=== PATIENT | female | born 1955 | race Caucasian/White ===

== ENCOUNTER → 2019-12-06 12:52 | Outpatient (CLI) | payer OTHER, SELFPAY ==
--- NOTE | ~2019-12-06 | XR_ITS ---
EXAMINATION: XR lumbar spine 2-3V DATE: 12/06/2019 13:37 INDICATION: Right-sided low back pain TECHNIQUE: Anteroposterior and lateral views of the lumbar spine, and cone-down lateral view of the l umbosacral junction were obtained. COMPARISON: None. FINDINGS: There is no fracture, dislocation, or subluxation. The vertebral body heights are normal. T here is severe loss of intervertebral disc space height at L2-3, L4-5, and L5-S1. Degenerative osteop hytes project from the anterior endplates of multiple vertebral bodies. Moderate to severe facet oste oarthritis is noted in the lower lumbar spine. There is calcified atherosclerosis. The bowel gas camila mandie is normal. IMPRESSION: 1. Moderate lumbar spondylosis without acute findings. Reviewed, dictated and finalized at location A.
--- NOTE | ~2019-12-06 | XR_ITS ---
EXAMINATION: XR chest 2V EXAM DATE: 12/06/2019 13:36 INDICATION: Dyspnea on exertion. TECHNIQUE: Frontal and lateral projections of the chest obtained and reviewed. Comparison is made to prior examination from 09/13/2011. FINDINGS: The lungs are clear. There are no pleural effusions. The cardiomediastinal silhouette is within normal limits. There is no pneumothorax suspected. Moderate-sized bridging endplate osteophy hugh, diffuse idiopathic skeletal hyperostosis. Mild to moderate chronic hyperinflation. IMPRESSION: No acute cardiopulmonary findings. Reviewed, dictated and finalized at location B.
== END ==
PROVIDERS: PCP Family Medicine Adolescent Medicine; Visit Provider Family Medicine Adolescent Medicine
DX: R06.00 Dyspnea, unspecified (principal); M47.816 Spondylosis without myelopathy or radiculopathy, lumbar region
CPT/HCPCS: 71046; 72100

== ENCOUNTER 2020-02-29 06:50 | Outpatient (NON) | payer OTHER, SELFPAY ==
[2020-02-29 23:03] LABS: SARS-CoV-2 RNA PCR Negative
== END 2020-02-29 06:51 ==
PROVIDERS: PCP Family Medicine Adolescent Medicine; Visit Provider Family Medicine Adolescent Medicine
DX: R05 Cough (principal); R06.02 Shortness of breath; Z20.828 Contact with and (suspected) exposure to other viral communicable diseases
CPT/HCPCS: 87635; C9803; U0003

== ENCOUNTER → 2020-03-01 14:18 | Outpatient (CLI) | payer OTHER, SELFPAY ==
--- NOTE | ~2020-03-01 | XR_ITS ---
XR chest 2V DATE: 03/01/2020 14:30 INDICATION: Cough, dyspnea TECHNIQUE: 2 views COMPARISON: 12/06/2019 PA and lateral chest FINDINGS: Cardiomegaly. There is mild pulmonary vascular congestion and redistribution compared to , suggesting mild congestive heart failure. No pleural effusion or pneumothorax is evident. The lungs are mildly hyperinflated; there is mild infiltrate or atelectasis in the mid and lower lung zones. . IMPRESSION: Cardiomegaly, mild pulmonary vascular congestion, suggesting mild congestive heart failur e Mild infiltrate or atelectasis in the mid and lower lung zones Reviewed, dictated and finalized at location A. 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
== END ==
PROVIDERS: PCP Family Medicine Adolescent Medicine; Visit Provider Family Medicine Adolescent Medicine
DX: R05 Cough (principal); R06.00 Dyspnea, unspecified; I51.7 Cardiomegaly; R91.8 Other nonspecific abnormal finding of lung field
CPT/HCPCS: 71046

== ENCOUNTER → 2020-05-02 00:54 | Outpatient (CLI) | payer MEDICARE, SELFPAY ==
[2020-05-02 19:08] LABS: SARS-CoV-2 RNA PCR Negative
== END ==
PROVIDERS: PCP Family Medicine Adolescent Medicine; Visit Provider Specialist
DX: Z01.812 Encounter for preprocedural laboratory examination (principal); Z20.822 Contact with and (suspected) exposure to COVID-19
CPT/HCPCS: C9803; U0003; U0005

== ENCOUNTER 2020-05-05 17:11 | Inpatient (IN) | payer MEDICARE, SELFPAY ==
[2020-05-04 16:07] VITALS: BMI 46.0
[2020-05-05] VITALS (16 sets, daily range): BP systolic 94–159; BP diastolic 57–80; PULSE 72–88; RESP 16–20; TEMP 35.8–36.4; O2SAT 92–98; BMI 46.1
--- NOTE | 2020-05-05 07:43 | SUR.PREOP ---
Patient arrives via wheelchair accompanied to [facility] room 5. PIV established, VSS, peripheral pulses assessed, labs obtained and sent. Consent obtained. Patient updated on plan of care and verbalizes understanding. Will continue to monitor.
[2020-05-05 07:46] LABS: Basophils Absolute Auto 0.1 K/mm3 (0.0-0.1); Basophils Percent Auto 0.9 % (0.2-1.2); Eosinophils Absolute Auto 0.2 K/mm3 (0-0.3); Eosinophils Percent Auto 3.6 % (0-4.4); Hematocrit 42.7 % (37.0-47.0); Hemoglobin 13.5 g/dL (12.0-15.0); Immature Granulocyte Absolute 0.03 K/mm3 (0.00-0.031); Immature Granulocyte Percent A 0.5 % (0-0.5); Lymphocytes Absolute Auto 1.18 K/mm3 (0.9-3.2); Lymphocytes Percent Auto 21.5 % (18.3-44.2); Mean Corpuscular HGB Conc 31.6 g/dl (32-36); Mean Corpuscular Hemoglobin 26.9 pg (26-34); Mean Corpuscular Volume 85.1 fl (80-100); Mean Platelet Volume 10.2 fl (7.4-10.4); Monocytes Absolute Auto 0.6 K/mm3 (0.1-0.6); Monocytes Percent Auto 11.1 % (2.6-8.5); Neutrophils Absolute Auto 3.4 K/mm3 (1.3-6.7); Neutrophils Percent Auto 62.4 % (45.5-73.1); Platelet Count Result 176 k/mm3 (150-375); Red Blood Count 5.02 M/mm3 (4.2-5.4); Red Cell Distribution Width 13.1 % (11.5-14.5); White Blood Count 5.5 K/mm3 (4.5-10.0)
[2020-05-05 07:55] LABS: INR 0.9; Prothrombin Time 13.2 Seconds (11.1-14.7)
[2020-05-05 07:57] LABS: Anion Gap 6 mmol/L (8-16); Blood Urea Nitrogen 21 mg/dL (7-17); Calcium 9.6 mg/dL (8.4-10.2); Carbon Dioxide 29 mmol/L (22-30); Chloride 104 mmol/L (98-107); Estimated CRCL calculation 96 ml/min; Estimated Glomerular Filt Rate > 60; Glucose 113 mg/dL (65-105); Potassium 3.9 mmol/L (3.4-5.0); Sodium 139 mmol/L (137-145)
--- NOTE | 2020-05-05 09:21 | WPDMODSED ---
Moderate Sedation Note-Pt Data Patient Data Diagnosis: Exertional dyspnea Recently diagnosed left ventricular systolic dysfunction Abnormal nuclear stress test Morbid obesity Present Complaint: This is a 65-year-old woman referred for evaluation of dyspnea. A nuclear stress test done as an outpatient apparently showed evidence of significant left ventricular systolic dysfunction as well as perfusion abnormalities suggestive of multivessel coronary artery disease. Procedure to be performed/Plan: Left heart catheterization Allergies Allergy/AdvReac Type Severity Reaction Status Date / Time No Known Allergies Allergy Verified 05/05/20 07:33 Home Medications Medication Instructions Recorded Confirmed Type aspirin [Aspir-81] 81 mg PO DAILY 05/04/20 05/05/20 History atorvastatin 20 mg PO DAILY 05/04/20 05/05/20 History bupropion HCl 150 mg PO QAM 05/04/20 05/05/20 History bupropion HCl 300 mg PO QAM 05/04/20 05/05/20 History carvedilol 3.125 mg PO BID 05/04/20 05/05/20 History diclofen ybb-kybija-i-parker-ment ea 05/04/20 History duloxetine 60 mg PO DAILY 05/04/20 05/05/20 History furosemide [Lasix] 40 mg PO DAILY 05/04/20 05/05/20 History hydrochlorothiazide 25 mg PO DAILY 05/04/20 05/05/20 History indomethacin 05/04/20 History losartan 25 mg PO DAILY 05/04/20 05/05/20 History tramadol 100 mg PO Q6H 05/04/20 05/05/20 History Current Medications: Active Medications Sodium Chloride (Normal Saline Iv) 500 mls @ 100 mls/hr IV CONT .Q5H [place] Sedation/Anesthesia: No previous sedation/anesthesia problems (including family history). [facility] Social History Social History Smoking packs per day: 1 Smoking cigarettes per day: 20.0 Years smoked: 50 Smoking pack-years: 50.00 Smoking status: Former smoker Tobacco type: cigarettes Smoking end date: 03/01/20 Alcohol intake: unknown Substance use type: does not use Spiritual care concerns: No Mod Sed Physical Exam Physical Exam Pre Procedural Exam: Normal: Throat, Airway, Lungs, Heart Rate, Heart Rhythm, Neuro Exam and Extremities and Variation: Appearance (Morbidly obese female no apparent distress) and Heart Size (PMI not palpable) Hours since solid foods: 12 Hours since liquid intake: 12 Internal Medicine - PN: Obj Da Vital Signs Vital Signs: Vital Signs - 24 hr 05/05/20 07:35 Temperature 35.8 C L Pulse Rate 88 Respiratory Rate 20 Blood Pressure 159/80 H Pulse Oximetry 96 Meds/Results Medications: Active Medications Generic Name Dose Route Start Last Admin Trade Name Ponchoq PRN Reason Stop Dose Admin Sodium Chloride 500 mls @ 100 mls/hr 05/04/20 18:35 Normal Saline Iv IV CONT .Q5H [place] Labs CBC & Chem 7: 05/05/20 07:25 05/05/20 07:25 Labs: Laboratory Results - last 24 hr 05/05/20 05/05/20 05/05/20 07:25 07:25 07:25 WBC 5.5 RBC 5.02 Hgb 13.5 Hct 42.7 MCV 85.1 MCH 26.9 MCHC 31.6 L RDW 13.1 Plt Count 176 MPV 10.2 Immature Gran % (Auto) 0.5 Neut % (Auto) 62.4 Lymph % (Auto) 21.5 [place] % (Auto) 11.1 H Eos % (Auto) 3.6 Baso % (Auto) 0.9 Lymph # (Auto) 1.18 [place] # (Auto) 0.6 Eos # (Auto) 0.2 Baso # (Auto) 0.1 Abs Immat Gran (auto) 0.03 Absolute Neuts (auto) 3.4 Absolute Nucleated RBC 0.0 Nucleated RBC % 0.0 PT 13.2 INR 0.9 Sodium 139 Potassium 3.9 Chloride 104 Carbon Dioxide 29 Anion Gap 6 L BUN 21 H Creatinine 0.80 Estim Creat Clear Calc 96 Estimated GFR > 60 Glucose 113 H Calcium 9.6 ASA Classification/Sedation ASA Classification/Sedation Risks: Risks, benefits and alternatives explained and patient/family accepted plan for sedation. Patient re-evaluated immediately prior to sedation.
--- NOTE | 2020-05-05 10:08 | P.PCNCC_ITS ---
Cardiac Cath Procedure Note Date of procedure:: 05/05/20 Performing physician:: Fabian Fraser MD Indication:: Exertional dyspnea abnormal nuclear stress test left ventricular systolic dysfunction Brief clinical history:: this is a 65-year-old woman who is morbidly obese no previous known history of cardiac disease who was seen because of relatively recent onset of severe exertional dyspnea. She also has occasional exertional chest pain as well. Nuclear stress testing was done demonstrating evidence of poor LV function and findings compatible with multivessel coronary disease. Procedure Procedure performed:: Left ventriculography coronary angiography Sedation/Medication given:: fentanyl 50 mg Versed 2 mg Case start time 9:44 a.m. case end time 10:03 a.m. sedation provided by Cammie Jonas RN, trained observer Access site:: right femoral artery Estimated blood loss:: 15-20 cc Procedure note:: patient was brought to the cardiac catheterization lab in the postabsorptive state the right femoral triangle was prepared and draped in the usual fashion. Anesthesia was provided with 1% lidocaine infiltrated locally. Using the modified Seldinger technique the right femoral artery was punctured and a 5 Salvadorean vascular sheath was placed. After this a 5 Salvadorean angled pigtail catheter was used to document left-sided hemodynamics and to injected LV g in the [place] projection. After this the pigtail catheter was withdrawn. The left coronary was injected using a 5 Salvadorean FL4 catheter. The right coronary was injected using a standard 5 Salvadorean JR4 catheter. The cine angiograms were then reviewed and the case was terminated. Patient was taken to the holding area for manual sheath removal. There were no procedural complications the procedure was well tolerated and she left the supervisor laboratory with no evidence of groin hematoma. Findings:: hemodynamics: Central aortic pressure is 102 over 45 left ventricle 102 over to end-diastolic 21. No apparent gradient on pullback across the aortic valve. Left ventricle: The LV is severely dilated. There is severe global systolic hypocontractility in all segments. The global ejection fraction visually estimated to be about 20%. Left main coronary artery is patent the left anterior descending is a Medium caliber artery artery extending down to around the apex there is a large diagonal branch proximally that is nicely patent the LAD after the diagonal has a discrete 95% stenosis. The circumflex is a moderate to large caliber vessel giving rise to the marginal branch is the circumflex is free of significant disease. The right coronary artery is large in caliber and was dominant to the posteri or circulation. The right coronary artery is 100% chronically occluded in the proximal segment. There is obvious a well-developed collateral flow left to right filling the posterior descending and large posterolateral branches. Conclusion:: 1. severe 2 vessel coronary artery disease with high-grade stenosis of the mid LAD and chronic total occlusion of the right coronary artery with well-developed hhyd-mc-abnlu collateral filling. 2. Severe left ventricular systolic dysfunction with LV dilatation and low ejection fraction as detailed above Fabian Fraser MD [facility]
[2020-05-05] MEDS: SODIUM CHLORIDE 0.9% IV 1,000 ML 125 ML IV CONT (12:00)
--- NOTE | 2020-05-05 18:15 | PC.NURSE ---
PT. TRANSFER HAS BEEN CANCELLED TO [facility] PER DR. BERMAN. PT. IS TO DISCHARGE HOME. WILL NOT BE ADMITTED TO IMU 205. TO REMAIN POST PROCEDURE STATUS IN [facility] 5 S/P [facility]. PT. IS AWARE.
--- NOTE | 2020-05-05 18:55 | SUR.PHASEII ---
REVIEWED ALL DISCHARGE INSTRUCTIONS /W PT. QUESTIONS ANSWERED. VOICED UNDERSTANDING OF ALL. DISCHARGED HOME, OUT VIA WC TO DAUGHTER'S WAITING CAR W/ ALL PERSONAL BELONGINGS, DISCHARGE PACKET, PROCEDURE DISK TO TAKE TO UPCOMING CARDIAC SURGERY APPOINTMENT. DENIES CP OR SOB. VOICES NO C/O. NO DISTRESS NOTED. R. GROIN SITE AT DISCHARGE SOFT, NONTENDER. NO BLEEDING OR HEMATOMA NOTED. STAT SEAL AND TEGADERM DRESSING C/D/I TO SITE. R. PEDAL PULSE PALP STRONG. VSS.
--- NOTE | 2020-05-29 16:07 | PM.DS ---
DS: Admitting Diagnosis Admitting Diagnosis Admitting Diagnosis: Dilated cardiomyopathy DS: Discharge Diagnosis Discharge Diagnosis (1) Ischemic cardiomyopathy: Code(s): I25.5 - Ischemic cardiomyopathy Status: Acute DS: Summary Hospital Course Reason for hospitalization: Elective left heart catheterization Hospital Course: This is a 65-year-old patient admitted to the hospital for elective left heart catheterization because of recently diagnosed dilated cardiomyopathy with congestive heart failure. The patient underwent left heart catheterization on the morning of admission in uncomplicated fashion. She was found to have severe 2 vessel coronary artery disease with stent to chronic total occlusion of the proximal right coronary artery as well as high-grade stenosis of the mid LAD of 95%. Patient had left ventricular enlargement with very low ejection fraction of about 10%. Given the severe 2 vessel coronary disease recommendation was for surgery consultation as an outpatient with the eye toward surgical revascularization in then medical treatment for left ventricular systolic dysfunction and likelihood a life vest and possibly a defibrillator depending on recovery ejection fraction. Patient was stable following angiography was discharged home. She was instructed not to lift more than 20 [address] to [address] a car until further notice and not to perform any vigorous manual labor. She is to restrict herself to sedentary activity until being seen in the office. Status at Discharge Functional status at discharge: independent ambulation Time Spent with Patient Time attestation: Total time spent providing and/or coordinating discharge services: Time spent: Greater than 30 minutes Exam Const: General: comfortable and no acute distress Other: Morbidly obese white male pleasant comfortable cooperative in no distress of any kind HENMT: Mouth: Yes moist mucous membranes Eyes: Sclera: sclerae normal Pupils: Equal, round and reactive pupils present Neck: Neck: supple Thyroid: thyroid normal Other: Difficult to assess JVD given her body habitus Resp: Effort & Inspection: normal respiratory effort Auscultation: clear to auscultation bilaterally and diminished lung sounds Cardio: Rate: regular rate Rhythm: regular rhythm Other: PMI not palpable no murmur no gallop GI: GI Palp: Yes Soft to palpation Auscultation: normal bowel sounds Skin: General skin exam: normal color Neuro: Other: Normal cognition Extrem: General: normal to inspection Other: Obese but otherwise negative Discharge Plan Discharge Attending physician on discharge: Fabian Fraser Discharging Clinician: Fabian Fraser Patient Disposition: Home, Self-Care Activity: as tolerated Diet: heart healthy Wound Care Instructions: other - see discharge instructions Discharge Instructions: YOU SHOULD HEAR FROM [facility] OFFICE ON FRIDAY, MAY 08, 2020 REGARDING A FOLLOW UP APPOINTMENT WITH A CARDIOVASCULAR SURGEON FOR POSSIBLE CORONARY ARTERY BYPASS SURGERY. IF YOU DO NOT HEAR FROM THEM BY AFTERNOON, CALL THE OFFICE AT [phone] TO INQUIRE. TAKE PROCEDURE DISK WITH YOU TO SURGERY APPOINTMENT TO GIVE TO DOCTOR. ACTIVITY POST CARDIAC CATH: *NO DRIVING FOR 24 HOURS. *NO LIFTING, PUSHING, OR PULLING MORE THAN 10 POUNDS FOR 1 WEEK. *NO STRENUOUS EXERCISE OR ACTIVITY (INCLUDING SEX) FOR 1 WEEK. *MAY SHOWER BUT NO TUB BATH OR SWIMMING POOL FOR 1 WEEK. *STAY HYDRATED. WOUND CARE POST CARDIAC CATH: *MAY REMOVE DRESSING TOMORROW AND PLACE BAND AID OVER SITE. REMOVE BANDAID ON FRIDAY, AND LEAVE SITE OPEN TO AIR. OBSERVE FOR REDNESS, SWELLING, DRAINAGE OR BLEEDING. MAY SHOWER TOMORROW. GENTLE WASH WITH SOAP AND RINSE WITH WATER. PAT DRY. NO RUBBING OR SCRUBBING OF SITE. NO POWDERS, CREAMS, OR OINTMENTS TO SITE. Patient Instructions: Heart Healthy Diet (DC), Moderate Sedation (DC), CABG (Coronary Artery Bypass Graft) (
== END 2020-05-05 18:55 | disposition home or self-care (01) | DRG 287 ==
LOC: ANHIMU 17:24 → ANHCPC 18:11
PROVIDERS: Admitting Provider Specialist; PCP Family Medicine Adolescent Medicine; Visit Provider Specialist
PROC: 4A023N7 Measurement of Cardiac Sampling and Pressure, Left Heart, Percutaneous Approach (ICD-10-PCS; CPT 93452; principal; 2020-05-05 08:30)
DX: I25.10 Atherosclerotic heart disease of native coronary artery without angina pectoris (principal); Z68.42 Body mass index [BMI] 45.0-49.9, adult; I50.20 Unspecified systolic (congestive) heart failure; I25.82 Chronic total occlusion of coronary artery; I25.5 Ischemic cardiomyopathy; E66.01 Morbid (severe) obesity due to excess calories; Z87.891 Personal history of nicotine dependence
CPT/HCPCS: 36415; 80048; 85025; 85610; 93458; C1887; C1894; J0461; J1644; J2250; J3010; J7030; J7040

== ENCOUNTER 2020-10-11 15:49 | Emergency (ER) | payer MEDICARE, SELFPAY ==
[2020-10-11 16:03] VITALS: BP 141/85; PULSE 110; RESP 16; TEMP 36.6; O2SAT 98
--- NOTE | 2020-10-11 16:10 | ED.WOUNDLAC ---
HPI - Wound/Laceration General Chief Complaint: Wound/Laceration Stated Complaint: dog bite Time Seen by Provider: 10/11/20 16:11 Source: patient and RN notes reviewed Mode of arrival: ambulatory Limitations: no limitations History of Present Illness HPI narrative: 65-year-old female presents concern for dog bite to the back of her left foot/ankle area. Reports the dog bite happened yesterday at 2 AM. Reports pain with weightbearing, pain with flexion of the foot. Reports two puncture wounds which she cleaned with soap and water and applied antibiotic ointment to. She denies fever, body aches. Denies drainage from the area. Extremity Location: Left: foot Related Data Home Medications Medication Instructions Recorded Confirmed aspirin 81 mg PO DAILY 05/04/20 05/05/20 atorvastatin 20 mg PO DAILY 05/04/20 05/05/20 bupropion HCl 150 mg PO QAM 05/04/20 05/05/20 bupropion HCl 300 mg PO QAM 05/04/20 05/05/20 carvedilol 3.125 mg PO BID 05/04/20 05/05/20 diclofen teo-gmuhkt-j-parker-ment ea 05/04/20 duloxetine 60 mg PO DAILY 05/04/20 05/05/20 furosemide [Lasix] 40 mg PO DAILY 05/04/20 05/05/20 losartan 25 mg PO DAILY 05/04/20 05/05/20 lisinopril 10/11/20 pantoprazole PO 10/11/20 potassium chloride meq PO 10/11/20 spironolactone 10/11/20 Allergies Allergy/AdvReac Type Severity Reaction Status Date / Time No Known Allergies Allergy Verified 05/05/20 07:33 Review of Systems Review of Systems: CONSTITUTIONAL: Denies malaise, chills, sweats, or fever. SKIN: Reports puncture wounds to the posterior left ankle MUSCULOSKELETAL: Reports left foot and ankle pain denies myalgia. NEUROLOGIC: Denies numbness, weakness All systems reviewed & are unremarkable except as noted in HPI and below PMFSH Social History Social History Smoking packs per day: 1 Smoking cigarettes per day: 20.0 Years smoked: 50 Smoking pack-years: 50.00 Smoking status: Former smoker Tobacco type: cigarettes Smoking end date: 03/01/20 Alcohol intake: unknown Substance use type: does not use Spiritual care concerns: No Comments At time of signature, agree with nursing past medical, surgical, social and family history. There is no relevant family history pertinent to the presenting complaint Exam Narrative: GENERAL: Well-appearing, well-nourished, and in no acute distress. HEAD: Normocephalic, atraumatic. EYES: PERRLA, conjunctivae clear, and EOMI. ENT: Mucous membranes moist. Oropharynx without edema, erythema or lesions. NECK: Supple. No lymphadenopathy CHEST: Clear to auscultation. No respiratory distress. HEART: Regular rate and rhythm. SKIN: Warm, dry. Two puncture small wounds noted to the posterior left ankle, Achilles area surrounded by erythema, with 4 cm of streaking on bilateral sides of the ankle NEURO: Alert and oriented x3. PSYCH: Normal mood and affect Course Course Emergency Course: Discussed with patient that if symptoms of pain with weightbearing or range of motion remain after 3 days on her antibiotic she needs to follow-up with her primary care doctor for further evaluation of her foot. Patient is aware of diagnosis, understands and agrees to treatment plan. Anticipatory guidance given. Patient agrees to follow-up as directed and is aware of reasons to seek care at the emergency department. Portions of this record may have been created with voice recognition software Vital Signs Vital signs: Vital Signs Temperature 97.9 F 10/11/20 16:03 Pulse Rate 110 H 10/11/20 16:03 Respiratory Rate 16 10/11/20 16:03 Blood Pressure 141/85 H 10/11/20 16:03 Pulse Oximetry 98 10/11/20 16:03 Temperature 97.9 F 10/11/20 16:03 Pulse Rate 110 H 10/11/20 16:03 Respiratory Rate 16 10/11/20 16:03 Blood Pressure 141/85 H 10/11/20 16:03 Pulse Oximetry 98 10/11/20 16:03 Reviewed. MDM - Wound/Laceration MDM Narrative Medical decision making narrative: Exam findings show no acute concerns or c
== END 2020-10-11 16:23 | disposition home or self-care (01) ==
PROVIDERS: Emergency Provider Nurse Practitioner; PCP Family Medicine Adolescent Medicine
DX: L08.9 Local infection of the skin and subcutaneous tissue, unspecified (principal); S91.032A Puncture wound without foreign body, left ankle, initial encounter; W54.0XXA Bitten by dog, initial encounter; Z87.891 Personal history of nicotine dependence; Z95.1 Presence of aortocoronary bypass graft; I25.10 Atherosclerotic heart disease of native coronary artery without angina pectoris; E78.00 Pure hypercholesterolemia, unspecified; I10 Essential (primary) hypertension; K21.9 Gastro-esophageal reflux disease without esophagitis; M19.90 Unspecified osteoarthritis, unspecified site; Z96.652 Presence of left artificial knee joint
CPT/HCPCS: 99213; G0463

== ENCOUNTER → 2020-10-20 10:38 | Outpatient (CLI) | payer MEDICARE, SELFPAY ==
--- NOTE | ~2020-10-20 | US_ITS ---
EXAMINATION: US thyroid DATE: 10/20/2020 11:04 INDICATION: Left thyroid nodule. TECHNIQUE: Multiple ultrasound images of the thyroid were obtained. COMPARISON: None. FINDINGS: The right thyroid lobe measures 4.4 x 3.0 x 2.1 cm. The left thyroid lobe measures 5.1 x 2.6 x 2.3 c m. The thyroid demonstrates diffusely heterogeneous hypoechogenicity. Vascularity is normal. In the left thyroid lobe, there is a 1.6 cm solid, isoechoic, sjtkke-hqvf-dsyt nodule with ill-defined cal n with peripheral calcifications (TI-RADS TR5). IMPRESSION: 1. Left thyroid nodule. Ultrasound-guided fine-needle aspiration is recommended. 2. Heterogeneous thyroid, likely chronic lymphocytic (Fredrick) thyroiditis. Reviewed, dictated and finalized at location A. IMPRESSION: 1. Left thyroid nodule. Ultrasound-guided fine-needle aspiration is recommended . 2. Heterogeneous thyroid, likely chronic lymphocytic (Fredrick) thyroiditis.
== END ==
PROVIDERS: PCP Family Medicine Adolescent Medicine; Visit Provider Family Medicine Adolescent Medicine
DX: E04.9 Nontoxic goiter, unspecified (principal)
CPT/HCPCS: 76536

== ENCOUNTER 2020-10-27 08:43 | Outpatient (CLI) | payer MEDICARE, SELFPAY ==
--- NOTE | ~2020-10-27 | US_ITS ---
EXAMINATION: US FNA w image guidance DATE: 10/27/2020 09:57 INDICATION: Left thyroid nodule. TECHNIQUE: The procedure and its benefits and risks were discussed with the patient. Risks specifically discusse d included bleeding. The patient verbalized understanding of the risks and agreed to proceed. The nec k was prepped and draped in the usual sterile manner. 1% lidocaine was used for local anesthesia. 5 passes were made with a 25G needle into the lesion under ultrasound guidance. There were no immedia te complications. The patient understood to call the ordering physician for results after a week and a half and verbalized that understanding. FINDINGS: Grayscale ultrasound images demonstrate needles advanced into a 1.6 cm left thyroid nodule for biopsy . IMPRESSION: 1. Ultrasound-guided fine needle aspiration of a left thyroid nodule. Reviewed, dictated and finalized at location A.
--- NOTE | 2021-03-28 16:13 | WPDGICN ---
Assessment and Plan Assessment and plan (1) Elevated LFTs: Code(s): R79.89 - Other specified abnormal findings of blood chemistry Status: Acute Assessment and Plan: Elevated LFTs. [place] to be associated with pancreatitis. Plan is for imaging to exclude whether this is from pancreatic inflammation or gallstone disease or stricture ring is in progress. (2) Acute pancreatitis: Code(s): K85.90 - Acute pancreatitis without necrosis or infection, unspecified Status: Acute Assessment and Plan: Patient with apparent acute of pancreatitis. Markedly elevated lipase noted. Elevated LFTs likely on this basis. Given her body habitus suspect she may have gallbladder disease. Plan is for ultrasound the gallbladder. In the interim NPO status and pain control is advised. Further recommendations will be given after imaging. Following lipase and LFTs daily is encouraged. (3) Obesity (BMI 30.0-34.9): Code(s): E66.9 - Obesity, unspecified Status: Acute Assessment and Plan: Patient is somewhat overweight suggesting that this may be a risk factor for gallbladder disease. Ultimately weight loss with diet control and increase activity encourage. (4) ASHD (arteriosclerotic heart disease): Code(s): I25.10 - Atherosclerotic heart disease of [place] coronary artery without angina pectoris Status: Acute Assessment and Plan: Patient with known atherosclerotic heart disease status post CABG in May of 2020. GI Consult Note Consult date/time: 03/28/21 16:13 HPI: Jessica Hathaway is a 66 year old female I am asked to see for acute pancreatitis and elevated LFTs. Patient reports for at least 2 weeks has had abdominal pain. Located in the upper abdomen rather persistent and sharp. She has had a poor appetite during this interval of time. She states the pain worsens during eating. She denies any radiation to the back or elsewhere. Patient has never been told she had gallstones. She has no significant alcohol intake. Family history is noncontributory. Patient does have a history of coronary artery bypass graft in May of 2020. She started new medications at that time. She reports no recent new medications. Review of Systems Review of Systems: All systems reviewed & are unremarkable except as noted in HPI and below [facility] Surgical History Surgical History (Updated 03/28/21 @ 15:25 by Edi Sanchez MD) Hx of CABG Social History Social History Smoking packs per day: 1 Smoking cigarettes per day: 20.0 Years smoked: 50 Smoking pack-years: 50.00 Smoking status: Former smoker Tobacco type: cigarettes Smoking end date: 03/01/20 Alcohol intake: unknown Substance use type: does not use Spiritual care concerns: No Meds Home Medications and Allergies Home Medications Medication Instructions Recorded Confirmed Type aspirin 81 mg PO DAILY 05/04/20 05/05/20 History atorvastatin 20 mg PO DAILY 05/04/20 05/05/20 History bupropion HCl 150 mg PO QAM 05/04/20 05/05/20 History bupropion HCl 300 mg PO QAM 05/04/20 05/05/20 History carvedilol 3.125 mg PO BID 05/04/20 05/05/20 History diclofen rga-wfapbb-o-parker-ment ea 05/04/20 History duloxetine 60 mg PO DAILY 05/04/20 05/05/20 History furosemide [Lasix] 40 mg PO DAILY 05/04/20 05/05/20 History losartan 25 mg PO DAILY 05/04/20 05/05/20 History amoxicillin-pot clavulanate 1 tablet PO Q12H 10 Days #20 tablet 10/11/20 Rx [Augmentin] lisinopril 10/11/20 History pantoprazole PO 10/11/20 History potassium chloride meq PO 10/11/20 History spironolactone 10/11/20 History allopurinol 300 mg tablet 300 mg PO DAILY #90 tablet 03/13/21 Rx diclofenac sodium 75 mg 75 mg PO BID #60 tablet 03/13/21 Rx tablet,delayed release Allergies Allergy/AdvReac Type Severity Reaction Status Date / Time No Known Allergies Allergy Verified 05/05/20 07:33
== END 2020-10-27 08:44 | disposition home or self-care (01) ==
PROVIDERS: PCP Family Medicine Adolescent Medicine; Visit Provider Physician Assistant
DX: E04.1 Nontoxic single thyroid nodule (principal)
CPT/HCPCS: 10005; 88173; 88305

== ENCOUNTER 2021-03-28 12:05 | Inpatient (IN) | payer MEDICARE, SELFPAY ==
[2021-03-28] VITALS (43 sets, daily range): BP systolic 79–130; BP diastolic 38–91; PULSE 59–82; RESP 12–22; TEMP 35.8–36.3; O2SAT 97–100; BMI 44.0
--- NOTE | ~2021-03-28 | CT_ITS ---
EXAMINATION: CT abdomen pelvis w con DATE: 03/28/2021 16:30 INDICATION: Pancreatitis TECHNIQUE: Computed tomography (CT) of the abdomen and pelvis was performed with 100 cc Omnipaque 350 intravenous contrast. Automated exposure control and iterative reconstruction technique were employe d. Exam dose: 1506.87 mGy-cm total exam DLP. COMPARISON: None. FINDINGS: Status post sternotomy. Mild cardiomegaly. Discoid atelectasis or more likely discoid scarr ing in the posterolateral left lower lobe. The lung bases are clear of consolidation. No pericardial or pleural effusion. Small sliding hiatal hernia. No hepatic space-occupying mass lesion is evident. There is thickening of the gallbladder wall and mild pericholecystic fat stranding, suggesting possib le acute cholecystitis. There is mild peripancreatic fat stranding suggesting mild uncomplicated panc reatitis. No bile duct or pancreatic duct dilatation is evident. Spleen measures 13.4 cm length, within upper limits of normal. Normal morphology of the adrenal gland on the left. 2 mm probable right adrenal adenoma. 1 cm right renal cortical cyst. The kidneys are otherwise unremarkable. No urinary tract calculus or hydroureteronephrosis. The urinary bladder is relatively evacuated. The uterus and adnexal areas are unremarkable. There is atherosclerotic calcification of the abdominal aorta but no aneurysm. No intraperitoneal or retroperitoneal or pelvic mass lesion or adenopathy or ascites. Diverticulosis sigmoid and descending colon; no CT evidence of diverticulitis. Small fat-containing umbilical hernia. Bilateral hip osteoarthritis, more prominent on the right. Diffuse idiopathic skeletal hyperostosis of the thoracic spine. Multilevel degenerative disc disease of lumbar spine, especially at L2-3, L4-5 and L5-S1. There are nonspecific areas of lucency of the L2 and L3 vertebral bodies. Consider hemangiomas, metas tatic disease, multiple myeloma. IMPRESSION: Gallbladder wall thickening and pericholecystic fat stranding, suggesting acute cholecys titis Mild peripancreatic fat stranding suggesting uncomplicated interstitial pancreatitis Very small sliding hiatal hernia 1 cm right renal cyst Diverticulosis of the left colon; no CT evidence of diverticulitis Status post sternotomy Degenerative changes of the thoracic and lumbar spine, both hips Nonspecific lucent areas at L2 and L3 vertebral bodies; different diagnosis given above Reviewed, dictated and finalized at [facility]. Reviewed, dictated and finalized at location [facility]. ISH DIPPER IMPRESSION: Gallbladder wall thickening and pericholecystic fat stranding, sug gesting acute cholecystitis Mild peripancreatic fat stranding suggesting uncomplicated interstitial pancrea titis Very small sliding hiatal hernia 1 cm right renal cyst Diverticulosis of the left colon; no CT evidence of diverticulitis Status post sternotomy Degenerative changes of the thoracic and lumbar spine, both hips Nonspecific lucent areas at L2 and L3 vertebral bodies; different diagnosis giv en above
--- NOTE | ~2021-03-28 | XR_ITS ---
EXAMINATION: XR cholangiogram surg 1st inj EXAM DATE: 03/30/2021 12:02 INDICATION: Laparoscopic cholecystectomy W IOCs . TECHNIQUE: Multiples Cine fluoroscopic images were obtained during injection of the cystic duct duri ng laparoscopic cholecystectomy. Procedure performed by Dr. Guy Turcios MD on 03/30/2021 12:02, radiologist was not present. Total fluoroscopic time of 47 seconds. The DAP for this procedure was 1.2 mGym2. A total of 311 images sent to PACS from the exam. Correlation is made to recent CT and M IMPACT HAMMER OPERATOR abdomen. FINDINGS: The cystic duct has been injected. Cystic duct and then common bile duct opacify. The comm on bile duct is moderately distended, more than seen on recent MRCP. Stone within the cystic duct on that examination is not identified, however there is a filling defect in the distal aspect of the com mon bile duct, appearance most consistent with obstructing choledocholithiasis. There is moderate dil ation of the hepatic ducts as well. No contrast entered the duodenum. Contrast extravasation is most likely from the injection site. IMPRESSION: CBD appears obstructed at the ampulla, probably from choledocholithiasis which may have m igrated from the cystic duct. I reviewed these images, discussed with surgeon in the operating room after acquisition. Reviewed, dictated and finalized at location [facility]. RUCTIONAL SUPPORT SPECIALIST IMPRESSION: CBD appears obstructed at the ampulla, probably from choledocholith iasis which may have migrated from the cystic duct. I reviewed these images, discussed with surgeon in the operating room after acq uisition.
--- NOTE | ~2021-03-28 | MR_ITS ---
EXAMINATION: MR MRCP wo/w con/w 3D wo ind DATE: 03/29/2021 12:15 INDICATION: Gallstone pancreatitis. TECHNIQUE: Magnetic resonance imaging (MRI) of the abdomen was performed without and with 20 mL Multi [place] intravenous contrast. Sequences included coronal T2-weighted FS FSE, coronal T2-weighted FSE, a xial T1-weighted LAVA, coronal FS FIESTA, axial dual-echo T1-weighted SPGR, coronal lava-FLEX, sagitt al T2-weighted FSE, axial T2-weighted FSE, and axial DWI. Thick-slab T2-weighted FSE images were obta ined for magnetic resonance cholangiopancreatography (MRCP). Maximum intensity projection 3-D reconst ructions of the volumetric data were created by the technologist. Postcontrast sequences included cor onal LAVA-flex and time course of axial T1-weighted LAVA. COMPARISON: Ultrasound 03/29/2021, CT abdomen and pelvis 03/28/2021 FINDINGS: ABDOMEN MRI: There is a 13 mm mass with peripheral delayed hyperenhancement in right hepatic lobe. Th ere is portal vein thrombosis in posterior segment right hepatic lobe. The gallbladder is distended a nd contains gallstones and sludge. Gallbladder wall thickening is noted. There is a 7 mm stone in the cystic duct. The common duct is dilated to 10 mm. There is fat stranding around the pancreas, consis tent with acute interstitial pancreatitis. There is a 13 mm mass in right adrenal gland containing mi croscopic fat, consistent with an adenoma. There is 11 mm cyst in right kidney. Left kidney is normal . There are no dilated loops of bowel. The endometrial complex is dilated to 14 mm. There are hemangi omas in lumbar spine correlating with the CT abnormalities. ABDOMEN MRCP: There is a 7 mm stone in the cystic duct. The common duct is dilated to 10 mm. No ston e in the common duct. IMPRESSION: 1. Acute cholecystitis with stone in the cystic duct. 2. Acute interstitial pancreatitis. 3. Mildly dilated common duct. No choledocholithiasis. 4. Portal vein thrombosis in posterior segment right hepatic lobe. 5. 13 mm mass with delayed peripheral hyperenhancement in right hepatic lobe. The differential diagno sis includes abscess, hemangioma, and focal nodular hyperplasia. 6. Hemangiomas in the lumbar spine correlating with the CT abnormalities. Reviewed, dictated and finalized at location [facility]. MAN/PROJECT MANAGER IMPRESSION: 1. Acute cholecystitis with stone in the cystic duct. 2. Acute interstitial pancreatitis. 3. Mildly dilated common duct. No choledocholithiasis. 4. Portal vein thrombosis in posterior segment right hepatic lobe. 5. 13 mm mass with delayed peripheral hyperenhancement in right hepatic lobe. T he differential diagnosis includes abscess, hemangioma, and focal nodular hyper plasia. 6. Hemangiomas in the lumbar spine correlating with the CT abnormalities.
--- NOTE | ~2021-03-28 | US_ITS ---
EXAMINATION: US right upper quadrant EXAM DATE: 03/29/2021 08:17 INDICATION: Elevated liver enzymes. TECHNIQUE: Multiple grayscale and Doppler images of the abdomen right upper quadrant were obtained (shea wren a technologist who performed the scan) and subsequently reviewed. There is no prior study for elisha gutierrez. FINDINGS: The pancreatic head and body are normal in appearance. The pancreatic tail is not visualized. The l iver has normal echogenicity and contour. There are no focal liver lesions identified. There is no evidence of intrahepatic biliary duct dilation. Portal venous flow was seen in the hepatopedal, nor mal direction and has normal Doppler waveform. No right-sided hydronephrosis. Common bile duct measures 5 mm, which is normal. The gallbladder wall is normal in thickness, with ex pected amount of distention. No sonographic evidence of pericholecystic fluid. There is cholelithia sis. Technologist performing exam reports patient did not demonstrate sonographic Rapp's sign. P cinthia note that this sign is less reliable in patients who have received pain medication. IMPRESSION: Cholelithiasis. Reviewed, dictated and finalized at location A. THERAPIST IMPRESSION: Cholelithiasis.
--- NOTE | ~2021-03-28 | XR_ITS ---
EXAMINATION: XR ERCP DATE: 04/02/2021 13:35 INDICATION: Gallstones. TECHNIQUE: 4 spot fluoroscopic images of the right upper quadrant were obtained during endoscopic ret rograde cholangiopancreatography (ERCP). Fluoroscopy exposure time was 190 seconds. COMPARISON: MRCP 03/29/2021, intraoperative cholangiogram 03/22/2021 FINDINGS: The endoscope tip is in the second portion the duodenum. There is contrast opacification of the common duct, which is dilated. There are surgical clips from cholecystectomy. There are surgical drains in right abdomen. IMPRESSION: 1. Dilated common duct. Please refer to the ERCP procedure note for additional details. Reviewed, dictated and finalized at location [facility]. RUCTOR PROGRAMMABLE CONTROLLERS
[2021-03-28 13:14] LABS: Basophils Absolute Auto 0.1 K/mm3 (0.0-0.1); Basophils Percent Auto 0.3 % (0.2-1.2); Eosinophils Absolute Auto 0.1 K/mm3 (0-0.3); Eosinophils Percent Auto 0.7 % (0-4.4); Hematocrit 37.3 % (37.0-47.0); Hemoglobin 11.5 g/dL (12.0-15.0); Immature Granulocyte Absolute 0.13 K/mm3 (0.00-0.031); Immature Granulocyte Percent A 0.8 % (0-0.5); Lymphocytes Absolute Auto 1.04 K/mm3 (0.9-3.2); Lymphocytes Percent Auto 6.3 % (18.3-44.2); Mean Corpuscular HGB Conc 30.8 g/dl (32-36); Mean Corpuscular Hemoglobin 26.9 pg (26-34); Mean Corpuscular Volume 87.4 fl (80-100); Mean Platelet Volume 9.7 fl (7.4-10.4); Monocytes Absolute Auto 0.9 K/mm3 (0.1-0.6); Monocytes Percent Auto 5.2 % (2.6-8.5); Neutrophils Absolute Auto 14.3 K/mm3 (1.3-6.7); Neutrophils Percent Auto 86.7 % (45.5-73.1); Platelet Count Result 302 k/mm3 (150-375); Red Blood Count 4.27 M/mm3 (4.2-5.4); Red Cell Distribution Width 15.7 % (11.5-14.5); White Blood Count 16.4 K/mm3 (4.5-10.0)
--- NOTE | 2021-03-28 14:02 | PC.NURSE ---
pt. attempted to urinate. pt. unable to produce enough for a sample.
[2021-03-28 14:14] LABS: Alanine Aminotransferase 98 U/L (4-35); Albumin Level 3.6 g/dL (3.5-5.1); Alkaline Phosphatase 732 U/L (38-126); Anion Gap 10 mmol/L (8-16); Aspartate Amino Transferase 40 U/L (14-36); Bilirubin,Total 4.5 mg/dL (0.2-1.3); Blood Urea Nitrogen 19 mg/dL (7-17); Calcium 9.4 mg/dL (8.4-10.2); Carbon Dioxide 22 mmol/L (22-30); Chloride 102 mmol/L (98-107); Estimated CRCL calculation 104 ml/min; Estimated Glomerular Filt Rate > 60; Glucose 104 mg/dL (65-110); Potassium 5.1 mmol/L (3.4-5.0); Sodium 134 mmol/L (137-145)
[2021-03-28 14:24] LABS: Lipase 8352 U/L (23-300)
[2021-03-28] MEDS: LACTATED RINGERS 1,000 ML 999 ML IV CONT ×2 (14:52→16:31)
--- NOTE | 2021-03-28 15:18 | PC.NURSE ---
Pt. cannot urinate
--- NOTE | 2021-03-28 15:19 | ED.ABDPAIN ---
HPI - Abdominal Pain General Chief Complaint: Abdominal Pain Stated Complaint: UPPER ABD PAIN,DIARRHEA Time Seen by Provider: 03/28/21 13:26 Source: patient and family Mode of arrival: ambulatory Limitations: no limitations History of Present Illness HPI narrative: 66-year-old female Here for abdominal pain Patient states she has had significant discomfort for a couple of days but her friend who is with her says that she has been complaining about it for several weeks and is just getting worse Pain is epigastric and to some extent radiates to her back She has not really noticed anything that makes her feel better or worse Her p.o. intake has been poor She does not consume alcohol, she does not have any prior abdominal operations She has a history of coronary artery disease and ischemic cardiomyopathy with a low ejection fraction We have some normal lipid studies in the computer but they are almost 20 years old Related Data Home Medications Medication Instructions Recorded Confirmed aspirin 81 mg PO DAILY 05/04/20 05/05/20 atorvastatin 20 mg PO DAILY 05/04/20 05/05/20 bupropion HCl 150 mg PO QAM 05/04/20 05/05/20 bupropion HCl 300 mg PO QAM 05/04/20 05/05/20 carvedilol 3.125 mg PO BID 05/04/20 05/05/20 diclofen mlc-whvpbk-g-parker-ment ea 05/04/20 duloxetine 60 mg PO DAILY 05/04/20 05/05/20 furosemide [Lasix] 40 mg PO DAILY 05/04/20 05/05/20 losartan 25 mg PO DAILY 05/04/20 05/05/20 lisinopril 10/11/20 pantoprazole PO 10/11/20 potassium chloride meq PO 10/11/20 spironolactone 10/11/20 Allergies Allergy/AdvReac Type Severity Reaction Status Date / Time No Known Allergies Allergy Verified 05/05/20 07:33 Review of Systems Review of Systems: All systems reviewed & are unremarkable except as noted in HPI and below Constitutional: Constitutional: Reports no additional constitutional complaints, Denies chills, Reports fatigue, Denies fever(s), Denies headache(s) and Reports weakness Eyes: Eyes: Reports no additional eye complaints and Denies change in vision ENT: Denies headache(s) and Denies sore throat Cardiovascular: Cardiovascular: Denies chest pain and Denies dyspnea Respiratory: Respiratory: Denies cough and Denies dyspnea Gastrointestinal: Gastrointestinal: Reports abdominal pain, Denies diarrhea, Reports nausea and Denies vomiting Genitourinary: Genitourinary: Denies urinary frequency and Denies dysuria Musculoskeletal: Musculoskeletal: Denies deformity, Denies arthralgias, Denies joint swelling and Denies numbness Integumentary/Breasts: Skin/Breast: Denies rash and Denies wounds Neurologic: Denies headache(s), Denies focal weakness and Denies numbness Psychiatric: Psychiatric: Reports no additional psychiatric complaints Endocrine: Endocrine: Reports no additional endocrine complaints Hematologic/Lymphatic: Hematologic/Lymphatic: Reports no additional hematologic/lymphatic complaints Allergic/Immunologic: Allergic/Immunologic: Reports no additional allergic/immunologic complaints PMFSH Surgical History Surgical History (Updated 03/28/21 @ 15:25 by Edi Sanchez MD) Hx of CABG Social History Social History Smoking packs per day: 1 Smoking cigarettes per day: 20.0 Years smoked: 50 Smoking pack-years: 50.00 Smoking status: Former smoker Tobacco type: cigarettes Smoking end date: 03/01/20 Alcohol intake: unknown Substance use type: does not use Spiritual care concerns: No Exam Const: General: cooperative, alert and ill appearing Nutritional Appearance: obese Orientation/consciousness: patient oriented x3 (alert) HENMT: Head: normal to inspection, normocephalic and atraumatic Ears: external ears normal General nose exam: no epistaxis Eyes: Conjunctivae: conjunctivae normal EOM: EOMs intact bilaterally Other: No scleral icterus Neck: Neck: normal visual inspection, supple and no JVD Resp:
[2021-03-28] MEDS: PANTOPRAZOLE SODIUM IV 40 MG VIAL IV PUSH (16:31)
[2021-03-28 18:20] LABS: LDL Cholesterol Direct 44 mg/dL
[2021-03-28 18:21] LABS: Cholesterol 111 mg/dL (0-200); HDL Direct 18 mg/dL; Lactic Acid Reflex 0.9 mmol/L (0.7-2.1); Triglycerides 114 mg/dL (<150)
[2021-03-28 19:47] LABS: Add Urine Microscopic? YES; Amorphous Sediment Urine Few; Appearance Urine Clear (Clear); Bilirubin Urine Negative (Negative); Blood Urine 1+ (Negative); Color Urine Yellow (Yellow); Glucose Urine UA Negative (Negative); Ketones Urine Negative (Negative); Leukocyte Esterase Ur Negative LEU/UL (Negative); Mucus Urine Rare /lpf; Nitrate Urine Negative (Negative); Protein Urine Negative (Negative); Squamous Epithelial Cell Urine Few /hpf (Few); WBC Urine 0-3 /hpf
[2021-03-28 19:57] LABS: Specific Grav Ur 1.034 (1.001-1.035)
--- NOTE | 2021-03-28 21:46 | ADMGEN ---
This patient, Jessica Hathaway, was admitted to Medical Room 345-. Patient/family oriented to hospital policies and general routines including ID bracelet, bed and alarms, visiting hours, pain management, procedures, bathroom and other care routines, personal items, smoking policy, room service/diet, and visiting hours. Information on how to activate the Rapid Response Team has been discussed. Patient/Family are encouraged to report perceived risks to care and to ask questions if they do not understand what they are told or what they should do.
--- NOTE | 2021-03-28 23:10 | PM.IMHP ---
H&P: HPI History of Present Illness Date/Time: 03/28/21 23:10 Chief Complaint: abdominal pain Narrative: 66-year-old female who presents to the ED today with abdominal pain and diarrhea. She had this for several weeks but has been getting worse. The pain is in epigastric area radiates to the back. She did try Pepto-Bismol and other antacids without relief. Eating will make the pain worse. This morning she felt lightheaded and dizzy with increased abdominal pain and hence came to the ED for evaluation. No alcohol history or any abdominal surgery in the past. She has history of coronary artery disease Status post CABG and ischemic cardiomyopathy with low ejection fraction. in the ER she was noted to be hypotensive on arrival. Laboratory evaluation showed WBC count of 16,000 mildly elevated potassium 5.1 along with elevated liver enzymes with total bilirubin of 4.5 mildly elevated AST ALT but significantly elevated alkaline phosphorus 732. She also had lipase level elevated [place] 8352. CT abdomen and pelvis was done which showed gallbladder wall thickening and pericholecystic fat stranding suggestive of acute cholecystitis along with mild peripancreatic fat stranding suggesting uncomplicated interstitial pancreatitis. In this setting she is admitted for further evaluation and management. General surgery and GI has been consulted from the ER. Review of Systems Review of Systems: - CONSTITUTIONAL: Denies weight loss, fever and chills. - HEENT: Denies changes in vision and hearing - RESPIRATORY: Denies SOB and cough. - CV: Denies palpitations and CP. - GI: Reports abdominal pain and diarrhea, denies nausea, vomiting - : Denies dysuria and urinary frequency. - MSK: Denies myalgia and joint pain. - SKIN: Denies rash and pruritus. - NEUROLOGICAL: Denies headache and syncope. - PSYCHIATRIC: Denies recent changes in mood. Denies anxiety and depression. All systems reviewed & are unremarkable except as noted in HPI and below Constitutional: Constitutional: Reports fatigue and Reports weakness Neurologic: Reports weakness Endocrine: Endocrine: Reports fatigue [facility] Surgical History Surgical History (Updated 03/28/21 @ 15:25 by Edi Sanchez MD) Hx of CABG Social History Social History Smoking packs per day: 1 Smoking cigarettes per day: 20.0 Years smoked: 50 Smoking pack-years: 50.00 Smoking status: Former smoker Tobacco type: cigarettes Second hand tobacco smoke exposure: No Smoking end date: 02/01/20 Alcohol intake: never Substance use: never Substance use type: does not use Spiritual care concerns: No Meds Home Medications and Allergies Home Medications Medication Instructions Recorded Confirmed Type aspirin 81 mg PO DAILY 05/04/20 05/05/20 History atorvastatin 20 mg PO DAILY 05/04/20 05/05/20 History bupropion HCl 150 mg PO QAM 05/04/20 05/05/20 History bupropion HCl 300 mg PO QAM 05/04/20 05/05/20 History carvedilol 3.125 mg PO BID 05/04/20 05/05/20 History diclofen ofy-oxglmd-l-parker-ment ea 05/04/20 History duloxetine 60 mg PO DAILY 05/04/20 05/05/20 History furosemide [Lasix] 40 mg PO DAILY 05/04/20 05/05/20 History losartan 25 mg PO DAILY 05/04/20 05/05/20 History amoxicillin-pot clavulanate 1 tablet PO Q12H 10 Days #20 tablet 10/11/20 Rx [Augmentin] lisinopril 10/11/20 History pantoprazole PO 10/11/20 History potassium chloride meq PO 10/11/20 History spironolactone 10/11/20 History allopurinol 300 mg tablet 300 mg PO DAILY #90 tablet 03/13/21 Rx diclofenac sodium 75 mg 75 mg PO BID #60 tablet 03/13/21 Rx tablet,delayed release Allergies Allergy/AdvReac Type Severity Reaction Status Date / Time No Known Allergies Allergy Verified 05/05/20 07:33 Vital Signs Vital Signs - 24 hr 03/28/21 12:07 03/28/21 13:00 03/28/21 13:38 Temperature 96.5 F L Pulse Rate 78 79 82 Respiratory Rate
[2021-03-28] MEDS: LACTATED RINGERS 1,000 ML 125 ML IV CONT (23:44)
[2021-03-29] VITALS (8 sets, daily range): BP systolic 102–133; BP diastolic 44–59; PULSE 61–75; RESP 16–20; TEMP 36.2–36.4; O2SAT 97–100
[2021-03-29 06:58] LABS: Basophils Absolute Auto 0.1 K/mm3 (0.0-0.1); Basophils Percent Auto 0.5 % (0.2-1.2); Eosinophils Absolute Auto 0.1 K/mm3 (0-0.3); Eosinophils Percent Auto 1.2 % (0-4.4); Hematocrit 32.7 % (37.0-47.0); Hemoglobin 10.2 g/dL (12.0-15.0); Immature Granulocyte Absolute 0.14 K/mm3 (0.00-0.031); Immature Granulocyte Percent A 1.2 % (0-0.5); Lymphocytes Absolute Auto 1.06 K/mm3 (0.9-3.2); Lymphocytes Percent Auto 8.9 % (18.3-44.2); Mean Corpuscular HGB Conc 31.2 g/dl (32-36); Mean Corpuscular Hemoglobin 27.6 pg (26-34); Mean Corpuscular Volume 88.6 fl (80-100); Mean Platelet Volume 9.1 fl (7.4-10.4); Monocytes Absolute Auto 0.9 K/mm3 (0.1-0.6); Monocytes Percent Auto 7.4 % (2.6-8.5); Neutrophils Absolute Auto 9.7 K/mm3 (1.3-6.7); Neutrophils Percent Auto 80.8 % (45.5-73.1); Platelet Count Result 258 k/mm3 (150-375); Red Blood Count 3.69 M/mm3 (4.2-5.4); Red Cell Distribution Width 15.7 % (11.5-14.5)
[2021-03-29 07:11] LABS: Potassium 4.2 mmol/L (3.4-5.0)
[2021-03-29 07:18] LABS: Alanine Aminotransferase 70 U/L (4-35); Albumin Level 3.2 g/dL (3.5-5.1); Alkaline Phosphatase 592 U/L (38-126); Anion Gap 10 mmol/L (8-16); Aspartate Amino Transferase 23 U/L (14-36); Bilirubin,Total 2.6 mg/dL (0.2-1.3); Blood Urea Nitrogen 18 mg/dL (7-17); Carbon Dioxide 23 mmol/L (22-30); Chloride 100 mmol/L (98-107); Estimated CRCL calculation 92 ml/min; Estimated Glomerular Filt Rate > 60; Glucose 95 mg/dL (65-110); Lipase 1057 U/L (23-300); Sodium 133 mmol/L (137-145)
--- NOTE | 2021-03-29 09:00 | PM.CNGS ---
Assessment and Plan Assessment and plan (1) Acute pancreatitis: Code(s): K85.90 - Acute pancreatitis without necrosis or infection, unspecified Status: Deleted Assessment and Plan: Acute pancreatitis on admission with now findings of cholelithiasis and transaminitis. This appears to be biliary pancreatitis. Agree with continuing IV fluids, analgesics, and antiemetics as needed for the pancreatitis. Lipase is already coming down today and the patient is no longer having any abdominal pain. I discussed the treatment options with the patient. We would recommend proceeding with a laparoscopic cholecystectomy by Dr. Turcios once her pancreatitis has resolved to prevent future complications or episodes of pancreatitis. Will continue to follow along and decipher timing of surgery depending on how she progresses. This could be done on this hospitalization or set up as an outpatient in the near future. (2) Elevated LFTs: Code(s): R79.89 - Other specified abnormal findings of blood chemistry Status: Deleted Assessment and Plan: LFTs elevated on admission likely related to gallstone passing into the CBD. Trending down this morning. GI consulted for possible ERCP if needed. Continue to monitor labs. (3) Ischemic cardiomyopathy: Code(s): I25.5 - Ischemic cardiomyopathy Status: Chronic Assessment and Plan: Increases surgical risks. (4) ASHD (arteriosclerotic heart disease): Code(s): I25.10 - Atherosclerotic heart disease of [place] coronary artery without angina pectoris Status: Chronic Assessment and Plan: Increases surgical risks. (5) Obesity, morbid, BMI 40.0-49.9: Code(s): E66.01 - Morbid (severe) obesity due to excess calories Status: Chronic Assessment and Plan: This increases her risks for surgery. Encourage lifestyle changes geared towards weight loss. Additional Plan I have discussed the patient's case and plan of care with Dr. Turcios. Thank you for allowing us to see the patient in consultation and we will continue to follow along with you. History of Present Illness Consult details Consult date: 03/29/21 Reason for consult: other (Acute pancreatitis with cholecystitis, transaminitis) Requesting physician: Edi Sanchez MD Narrative: This is a 66-year-old obese female with a history of coronary artery disease with ischemic cardiomyopathy status post 3 vessel CABG in July of 2020. She presented to the ER yesterday with complaints of upper abdominal pain and nausea. She reports that her symptoms started about 2 weeks ago, when she developed an onset epigastric abdominal pain. She also had associated nausea and diarrhea, but no vomiting. She cannot recall what time of the day the pain started. This pain and nausea continued over the next 2 weeks. She reports at times it would intermittently improved and worsened at times. She does feel that it was aggravated by food. She reports that the pain is now across her entire upper abdomen. She denies fever or chills. She reports noticing some mild jaundice over the past few days as well due to the unrelenting symptoms, she finally decided to present to the ER yesterday for evaluation. [place] [address], total bilirubin 4.5, AST 40, ALT 98, alk-phos 732, and lipase a 1352. CT scan of the abdomen and pelvis showed gallbladder wall thickening and pericholecystic fat stranding suggesting acute cholecystitis, and mild peripancreatic fat stranding suggesting uncomplicated interstitial pancreatitis. No cholelithiasis mentioned. The patient was admitted to the hospitalist service and started on IV fluids, IV Zosyn, and made NPO. She had a right upper quadrant abdominal ultrasound ordered this morning that showed cholelithiasis with an otherwise normal appearing gallbladder and negative Rapp's sign. GI has been consulted. Our service has been consulted in the setting of possible biliary panc
--- NOTE | 2021-03-29 09:17 | PM.CNCAR ---
Assessment and Plan Assessment and plan (1) Ischemic cardiomyopathy: Code(s): I25.5 - Ischemic cardiomyopathy Status: Chronic Assessment and Plan: EF improved from 20% to 40-45%by Echo 12/2020 s/p CABG 07/2020. Patient is compensated from a CHF perspective at this time. Agree with IV fluids given clinical intravascular volume depletion secondary to poor oral intake related to acute pancreatitis. Monitor volume status closely. Minimize IV fluids when appropriate and advancing oral intake. Given relative hypotension continue to hold diuretic therapy, losartan, spironolactone. Cautiously reintroduce as appropriate tolerated. (2) CAD (coronary artery disease): Code(s): I25.10 - Atherosclerotic heart disease of [place] coronary artery without angina pectoris Status: Acute Assessment and Plan: No anginal symptoms. Continue statin, aspirin as tolerated. Twelve lead EKG. (3) Chronic HFrEF (heart failure with reduced ejection fraction): Code(s): I50.22 - Chronic systolic (congestive) heart failure Status: Acute Assessment and Plan: As above, well compensated, EF 40-45%. Monitor renal function, electrolytes input and output. Telemetry per primary service. No issues thus far upon review. (4) Acute pancreatitis: Code(s): K85.90 - Acute pancreatitis without necrosis or infection, unspecified Status: Acute Assessment and Plan: Management per primary service and GI. Appropriate DVT prophylaxis. (5) S/P CABG x 3: Code(s): Z95.1 - Presence of aortocoronary bypass graft Status: Acute Assessment and Plan: TERRELL to LAD, SVG to diagonal, SVG to RCA 07/2020 with improvement in EF. No anginal symptoms. Management as above. History of Present Illness History of Present Illness Consult date/time: Date of service:03/29/21 09:17 Cardiology consultation at the request of Dr. Nye of the [facility] service for opinion regarding history of cardiomyopathy, CAD status post CABG. Requesting physician: Festus Nye MD Consult reason: Other (cardiomyopathy, CAD s/p CABG) Reason For Visit: pancreatitis, cholecystitis, cardiomyopathy Narrative: Patient is a pleasant 66-year-old female followed by Dr. Macias as an outpatient with a history of severe ischemic cardiomyopathy May 2020 with left heart catheterization revealing total occlusion of the RCA high-grade stenosis in the LAD eventually undergoing CABG July 2020 at [facility] 3 vessel TERRELL to LAD, SVG to 1st diagonal, SVG to PDA, history of heart failure with reduced ejection fraction, history of tobacco abuse, hypertension with a noted improvement in her EF to 40-45% by echo in our office 12/22/2020. Patient presented to the ER complaints of abdominal pain, diarrhea, nausea without emesis progressive over the past several weeks. Symptoms worse with eating no relief with [id number]-nripgrs antacids. She denies chest pain, shortness of breath, orthopnea or PND. She denies lower extremity edema, palpitations fevers or chills. She denies other recent illnesses and has been compliant with medications. or oral intake has been diminished due to exacerbation of pain. She admits to some dizziness with standing but no near-syncope or syncope. At presentation she had in elevated white blood cell count 19619, elevated LFTs and bilirubin 4.5 alkaline phosphatase significantly elevated at 732 and a markedly elevated lipase at a 1352. CT abdomen pelvis revealed gallbladder wall thickening with pericholecystic fat stranding suggestive of acute cholecystitis and interstitial pancreatitis. She was started on lactated Ringer's 125 mL/hr in the ER. She is feeling much better but still admits to some abdominal discomfort. Review of Systems Review of Systems: All systems reviewed & are unremarkable except as noted in HPI and below Constitutional: Constitutional: Reports as per HPI, Reports no additional constitutional
--- NOTE | 2021-03-29 09:38 | ECG_ITS ---
Measurements Intervals [place] Rate: 70 P: 73 SD: 181 QRS: 56 QRSD: 128 T: 52 QT: 388 QTc: 420 Interpretive Statements SINUS RHYTHM VENTRICULAR PREMATURE COMPLEX INTRAVENTRICULAR CONDUCTION DELAY INFERIOR INFARCT, AGE INDETERMINATE ABNORMAL ECG Electronically Signed On 03-29-2021 10:27:39 JOINTER OPERATOR by Zach Perdomo D.O.
--- NOTE | 2021-03-29 09:59 | WPDGIPROGNO ---
Progress Note: A&P Assessment and Plan (1) Acute pancreatitis: Code(s): K85.90 - Acute pancreatitis without necrosis or infection, unspecified Status: Acute Assessment and Plan: Patient with acute pancreatitis. Gallbladder ultrasound reveals gallstones. This is likely etiology for pancreatitis. Patient does not drink. Plan to continue to monitor labs. LFTs have decreased somewhat today. Ultimately will require cholecystectomy. (2) Cholelithiasis: Code(s): K80.20 - Calculus of gallbladder without cholecystitis without obstruction Status: Acute Assessment and Plan: ultrasound revealed gallstones. CT scan suggest cholecystitis. In addition to pancreatitis. LFTs gradually improving. Plan is for MRCP to exclude common bile duct gallstones. Surgery to be consulted for ultimate cholecystectomy. Continue to monitor labs including lipase LFTs electrolytes. (3) Obesity, morbid, BMI 40.0-49.9: Code(s): E66.01 - Morbid (severe) obesity due to excess calories Status: Acute Subjective Date/time seen: 03/29/21 09:59 Patient alert more comfortable this morning. States she is hungry. still reports upper mid abdominal pain. Better after pain shots. Review of Systems Review of Systems: All systems reviewed & are unremarkable except as noted in HPI and below Exam Narrative: Physical exam reveals patient to be obese. HEENT exam reveals no icterus. Lungs are clear. Heart without murmur. Bowel sounds are present soft nontender with no organomegaly. Extremities are without clubbing cyanosis or edema. Objective Data Vital Signs Vital Signs: Vital Signs - 24 hr 03/28/21 12:07 03/28/21 13:00 03/28/21 13:38 Temperature 96.5 F L Pulse Rate 78 79 82 Respiratory Rate 22 H 14 16 Blood Pressure 80/53 L 130/91 H Pulse Oximetry 100 99 03/28/21 13:39 03/28/21 13:45 03/28/21 13:46 Temperature Pulse Rate 78 72 76 Respiratory Rate 17 15 Blood Pressure 104/46 L 83/48 L Pulse Oximetry 99 99 03/28/21 14:00 03/28/21 14:01 03/28/21 14:15 Temperature Pulse Rate 70 70 72 Respiratory Rate Blood Pressure 79/47 L Pulse Oximetry 99 99 98 03/28/21 14:16 03/28/21 14:30 03/28/21 14:31 Temperature Pulse Rate 73 71 73 Respiratory Rate 12 13 14 Blood Pressure 83/51 L 83/49 L Pulse Oximetry 98 100 100 03/28/21 14:45 03/28/21 14:50 03/28/21 15:00 Temperature Pulse Rate 71 72 72 Respiratory Rate 13 13 Blood Pressure 96/50 L Pulse Oximetry 99 100 100 03/28/21 15:01 03/28/21 15:15 03/28/21 15:16 Temperature Pulse Rate 79 65 67 Respiratory Rate 14 Blood Pressure 94/52 L 90/45 L Pulse Oximetry 100 98 99 03/28/21 15:30 03/28/21 15:31 03/28/21 15:45 Temperature Pulse Rate 67 64 70 Respiratory Rate 20 Blood Pressure 92/38 L Pulse Oximetry 99 100 100 03/28/21 15:47 03/28/21 16:00 03/28/21 16:01 Temperature Pulse Rate 69 65 66 Respiratory Rate 13 Blood Pressure 104/49 L 98/49 L Pulse Oximetry 100 100 100 03/28/21 16:28 03/28/21 16:30 03/28/21 16:31 Temperature Pulse Rate 71 69 72 Respiratory Rate 14 17 16 Blood Pressure 116/56 L 86/49 L Pulse Oximetry 03/28/21 16:32 03/28/21 16:45 03/28/21 16:46 Temperature Pulse Rate 66 63 64 Respiratory Rate 13 12 14 Blood Pressure 102/53 L Pulse Oximetry 100 03/28/21 17:00 03/28/21 17:01 03/28/21 17:15 Temperature Pulse Rate 63 65 60 Respiratory Rate 13 15 14 Blood Pressure 98/50 L Pulse Oximetry 100 99 100 03/28/21 17:16 03/28/21 17:17 03/28/21 17:30 Temperature Pulse Rate 65 66 59 L Respiratory Rate 12 Blood Pressure 118/58 L Pulse Oximetry 99 97 100 03/28/21 17:31 03/28/21 17:45 03/28/21 17:46 Temperature Pulse Rate 59 L 73 70 Respiratory Rate 14 18 14 Blood Pressure 108/64 109/56 L Pulse Oximetry 100 100 100 03/28/21 18:00 03/28/21 18:01 03/28/21 19:23 Temperature Pulse Rate 59 L 62 80 R
--- NOTE | 2021-03-29 10:45 | P.PNIM_ITS ---
Progress Note: A&P Assessment and Plan (1) Acute pancreatitis: Code(s): K85.90 - Acute pancreatitis without necrosis or infection, unspecified Status: Deleted Assessment and Plan: * Lipase 8352 upon admission and 1057 today * Zosyn on board * IV fluids * GI consult today * MRCP: Acute cholecystitis with stone in the cystic duct, Acute interstitial pancreatitis, Mildly dilated common duct. No choledocholithiasis, Portal vein thrombosis in posterior segment right hepatic lobe, 13 mm mass with delayed peripheral hyperenhancement in right hepatic lobe. The differential diagnosis includes abscess, hemangioma, and focal nodular hyperplasia, Hemangiomas in the lumbar spine correlating with the CT abnormalities. * Probably will need an ERCP * Trend labs (2) Cholecystitis: Code(s): K81.9 - Cholecystitis, unspecified Status: Deleted Assessment and Plan: * MRCP shows acute cholecystitis * US RUQ Cholelithiasis * IV fluids * GI consulted thank you * General surgery consulted thank you * NPO for now (3) ASHD (arteriosclerotic heart disease): Code(s): I25.10 - Atherosclerotic heart disease of [place] coronary artery without angina pectoris Status: Chronic Assessment and Plan: * coronary artery disease status post CABG May 2020 * cardiology has also been consulted (4) Ischemic cardiomyopathy: Code(s): I25.5 - Ischemic cardiomyopathy Status: Chronic Assessment and Plan: * History of ischemic cardiomyopathy initially 20% now improved to 40 to 45% recent evaluation * Current home carvedilol, furosemide, spironolactone on hold due to low blood pressure * Monitor urine output (5) Hypertension: Code(s): I10 - Essential (primary) hypertension Status: Acute Assessment and Plan: * Current blood pressure 102/44 * Blood pressure medication on hold for right now * Trend labs * Adjust medications as indicated (6) CAD (coronary artery disease): Code(s): I25.10 - Atherosclerotic heart disease of [place] coronary artery without angina pectoris Status: Acute Assessment and Plan: * Continue medications when appropriate (7) Elevated liver enzymes: Code(s): R74.8 - Abnormal levels of other serum enzymes Status: Acute Assessment and Plan: * AST ALT elevated secondary to pancreatitis * Trend labs * Hep panel in the a.m. * RUQ shows Cholelithiasis Time Spent With Patient Time with patient: Greater than 35 minutes Subjective Date/time seen: 03/29/21 1045 Interval history: Date/Time: 03/28/21 23:10 Narrative: 66-year-old female who presents to the ED today with abdominal pain and diarrhea. She had this for several weeks but has been getting worse. The pain is in epigastric area radiates to the back. She did try Pepto-Bismol and other antacids without relief. Eating will make the pain worse. This morning she felt lightheaded and dizzy with increased abdominal pain and hence came to the ED for evaluation. No alcohol history or any abdominal surgery in the past. She has history of coronary artery disease Status post CABG and ischemic cardiomyopathy with low ejection fraction. in the ER she was noted to be hypotensive on arrival. Laboratory evaluation showed WBC count of 16,000 mildly elevated potassium 5.1 along with elevated liver enzymes with total bilirubin of 4.5 mildly elevated AST ALT but significantly elevated alkaline ph
--- NOTE | 2021-03-29 10:45 | PM.IMPN ---
Progress Note: A&P Assessment and Plan (1) Acute pancreatitis: Code(s): K85.90 - Acute pancreatitis without necrosis or infection, unspecified Status: Deleted Assessment and Plan: Lipase 8352 upon admission and 1057 today Zosyn on board IV fluids GI consult today MRCP: Acute cholecystitis with stone in the cystic duct, Acute interstitial pancreatitis, Mildly dilated common duct. No choledocholithiasis, Portal vein thrombosis in posterior segment right hepatic lobe, 13 mm mass with delayed peripheral hyperenhancement in right hepatic lobe. The differential diagnosis includes abscess, hemangioma, and focal nodular hyperplasia, Hemangiomas in the lumbar spine correlating with the CT abnormalities. Probably will need an ERCP Trend labs (2) Cholecystitis: Code(s): K81.9 - Cholecystitis, unspecified Status: Deleted Assessment and Plan: MRCP shows acute cholecystitis US RUQ Cholelithiasis IV fluids GI consulted thank you General surgery consulted thank you NPO for now (3) ASHD (arteriosclerotic heart disease): Code(s): I25.10 - Atherosclerotic heart disease of [place] coronary artery without angina pectoris Status: Chronic Assessment and Plan: coronary artery disease status post CABG May 2020 cardiology has also been consulted (4) Ischemic cardiomyopathy: Code(s): I25.5 - Ischemic cardiomyopathy Status: Chronic Assessment and Plan: History of ischemic cardiomyopathy initially 20% now improved to 40 to 45% recent evaluation Current home carvedilol, furosemide, spironolactone on hold due to low blood pressure Monitor urine output (5) Hypertension: Code(s): I10 - Essential (primary) hypertension Status: Acute Assessment and Plan: Current blood pressure 102/44 Blood pressure medication on hold for right now Trend labs Adjust medications as indicated (6) CAD (coronary artery disease): Code(s): I25.10 - Atherosclerotic heart disease of [place] coronary artery without angina pectoris Status: Acute Assessment and Plan: Continue medications when appropriate (7) Elevated liver enzymes: Code(s): R74.8 - Abnormal levels of other serum enzymes Status: Acute Assessment and Plan: AST ALT elevated secondary to pancreatitis Trend labs Hep panel in the a.m. RUQ shows Cholelithiasis Time Spent With Patient Time with patient: Greater than 35 minutes Subjective Date/time seen: 03/29/21 1045 Interval history: Date/Time: 03/28/21 23:10 Narrative: 66-year-old female who presents to the ED today with abdominal pain and diarrhea. She had this for several weeks but has been getting worse. The pain is in epigastric area radiates to the back. She did try Pepto-Bismol and other antacids without relief. Eating will make the pain worse. This morning she felt lightheaded and dizzy with increased abdominal pain and hence came to the ED for evaluation. No alcohol history or any abdominal surgery in the past. She has history of coronary artery disease Status post CABG and ischemic cardiomyopathy with low ejection fraction. in the ER she was noted to be hypotensive on arrival. Laboratory evaluation showed WBC count of 16,000 mildly elevated potassium 5.1 along with elevated liver enzymes with total bilirubin of 4.5 mildly elevated AST ALT but significantly elevated alkaline phosphorus 732. She also had lipase level elevated [place] 8352. CT abdomen and pelvis was done which showed gallbladder wall thickening and pericholecystic fat stranding suggestive of acute cholecystitis along with mild peripancreatic fat stranding suggesting uncomplicated interstitial pancreatitis. In this setting she is admitted for further evaluation and management. General surgery and GI has been consulted from the ER. Date/Time 03/29/21 5511 Patient stated that she feels hungr
--- NOTE | 2021-03-29 12:24 | PM.PNGS ---
Progress Note: A&P Assessment and Plan (1) Acute biliary pancreatitis without infection or necrosis: Code(s): K85.10 - Biliary acute pancreatitis without necrosis or infection Status: Acute Assessment and Plan: Much improved from yesterday. Lipase has gone from a 8000 to 1000. MRCP is pending. Dr. Escobar is seeing the patient and will decide if ERCP is needed. Once pancreatitis has resolved, patient will need laparoscopic cholecystectomy. She could go home and come back for this as an outpatient. No surgery planned for today. Okay from my perspective to start low-fat diet when okay with others. (2) Chronic HFrEF (heart failure with reduced ejection fraction): Code(s): I50.22 - Chronic systolic (congestive) heart failure Status: Chronic Assessment and Plan: Cardiology note appreciated. It seems patient would be a suitable candidate for laparoscopic cholecystectomy, although surgical risks are increased due to this. (3) S/P CABG x 3: Code(s): Z95.1 - Presence of aortocoronary bypass graft Status: Chronic (4) Obesity, morbid, BMI 40.0-49.9: Code(s): E66.01 - Morbid (severe) obesity due to excess calories Status: Chronic Assessment and Plan: Increases surgical risks as well. Subjective Subjective Date/Time Seen: 03/29/21 12:24 Patient reports: feels better and pain is less Interval history: Patient is a 66-year-old woman with epigastric abdominal pain nausea and some loose stools. This started about 2 weeks ago. Since that was persisting she came to the emergency room. Examination as well as lab testing and imaging showed acute biliary pancreatitis. Both CT and ultrasound have shown gallstones. An MRCP has been ordered for today but its result is pending. Her pain is actually gone now. She had a similar episode around . She is seen now in consultation regarding her acute pancreatitis and gallstones. I have discussed this patient's case with Nakia PRAJAPATI and agree with her consultation. Review of Systems Review of Systems: All systems reviewed & are unremarkable except as noted in HPI and below Cardiovascular: Cardiovascular: Denies chest pain and Denies dyspnea Respiratory: Respiratory: Denies cough and Denies dyspnea Gastrointestinal: Gastrointestinal: Reports as per HPI, Reports abdominal pain (Gone now), Reports diarrhea and Reports nausea Exam Const: General: comfortable and no acute distress; No confusion Orientation/consciousness: patient oriented x3 and No confusion GI: Inspection: non-distended and obesity GI Palp: Yes Soft to palpation, Yes Tenderness to palpation present (GI) (Epigastric area primarily), No Guarding due to palpation present (GI) and No Rebound tenderness present Auscultation: Hypoactive bowel sounds present Neuro: General: patient oriented x3, no focal motor deficits and No confusion Extrem: General: no calf tenderness and no edema Psych: Affect: normal affect Insight: Good insight present (Psych) Judgement: Good judgement present (Psych) Objective Data Vital Signs Vital Signs: Vital Signs - 24 hr 03/28/21 13:00 03/28/21 13:38 03/28/21 13:39 Temperature Pulse Rate 79 82 78 Respiratory Rate 14 16 17 Blood Pressure 130/91 H 104/46 L Pulse Oximetry 99 03/28/21 13:45 03/28/21 13:46 03/28/21 14:00 Temperature Pulse Rate 72 76 70 Respiratory Rate 15 Blood Pressure 83/48 L Pulse Oximetry 99 99 99 03/28/21 14:01 03/28/21 14:15 03/28/21 14:16 Temperature Pulse Rate 70 72 73 Respiratory Rate 12 Blood Pressure 79/47 L 83/51 L Pulse Oximetry 99 98 98 03/28/21 14:30 03/28/21 14:31 03/28/21 14:45 Temperature Pulse Rate 71 73 71 Respiratory Rate 13 14 Blood Pressure 83/49 L Pulse Oximetry 100 100 99 03/28/21 14:50 03/28/21 15:00 03/28/21 15:01 Temperature Pulse Rate 72 72 79 Respiratory Rate 13 13 14 Blood Pressure 96/50 L 94/52 L Pulse Oxim
[2021-03-29] MEDS: LACTATED RINGERS 1,000 ML 125 ML IV CONT ×3 (13:30→23:57)
[2021-03-29] MEDS: PANTOPRAZOLE SODIUM IV 40 MG VIAL IV PUSH ×2 (13:31→18:16)
[2021-03-29 15:16] LABS: Basophils Absolute Auto 0.1 K/mm3 (0.0-0.1); Basophils Percent Auto 0.5 % (0.2-1.2); Eosinophils Absolute Auto 0.1 K/mm3 (0-0.3); Eosinophils Percent Auto 1.1 % (0-4.4); Hematocrit 33.7 % (37.0-47.0); Hemoglobin 10.2 g/dL (12.0-15.0); Immature Granulocyte Absolute 0.13 K/mm3 (0.00-0.031); Immature Granulocyte Percent A 1.2 % (0-0.5); Lymphocytes Percent Auto 10.8 % (18.3-44.2); Mean Corpuscular HGB Conc 30.3 g/dl (32-36); Mean Corpuscular Hemoglobin 27.3 pg (26-34); Mean Corpuscular Volume 90.3 fl (80-100); Mean Platelet Volume 9.4 fl (7.4-10.4); Monocytes Absolute Auto 0.7 K/mm3 (0.1-0.6); Monocytes Percent Auto 6.7 % (2.6-8.5); Neutrophils Absolute Auto 8.9 K/mm3 (1.3-6.7); Neutrophils Percent Auto 79.7 % (45.5-73.1); Platelet Count Result 270 k/mm3 (150-375); Red Blood Count 3.73 M/mm3 (4.2-5.4); Red Cell Distribution Width 15.8 % (11.5-14.5); White Blood Count 11.1 K/mm3 (4.5-10.0)
[2021-03-29 15:26] LABS: Alanine Aminotransferase 70 U/L (4-35); Albumin Level 3.4 g/dL (3.5-5.1); Alkaline Phosphatase 567 U/L (38-126); Anion Gap 9 mmol/L (8-16); Aspartate Amino Transferase 23 U/L (14-36); Bilirubin,Total 2.4 mg/dL (0.2-1.3); Blood Urea Nitrogen 16 mg/dL (7-17); Calcium 9.2 mg/dL (8.4-10.2); Carbon Dioxide 25 mmol/L (22-30); Chloride 100 mmol/L (98-107); Estimated CRCL calculation 104 ml/min; Estimated Glomerular Filt Rate > 60; Glucose 90 mg/dL (65-110); Potassium 4.5 mmol/L (3.4-5.0); Sodium 134 mmol/L (137-145)
[2021-03-29] MEDS: HYDROmorphone HCL INJ (*CRX) 1 MG/ML SYR 0.5 MG IV PUSH (18:23)
[2021-03-29] MEDS: ONDANSETRON INJ 4 MG/2 ML VIAL IV PUSH (20:31)
[2021-03-30] VITALS (18 sets, daily range): BP systolic 101–152; BP diastolic 47–65; PULSE 54–778; RESP 12–17; TEMP 36.1–36.6; O2SAT 96–100
[2021-03-30] MEDS: ONDANSETRON INJ 4 MG/2 ML VIAL IV PUSH ×2 (03:59→07:47)
[2021-03-30] MEDS: CHLORHEXIDINE GLUCONATE 4% SOL 120 ML BTL 1 APPLIC TOPICAL (06:07)
[2021-03-30 06:51] LABS: Basophils Absolute Auto 0.1 K/mm3 (0.0-0.1); Basophils Percent Auto 0.4 % (0.2-1.2); Eosinophils Absolute Auto 0.1 K/mm3 (0-0.3); Eosinophils Percent Auto 0.7 % (0-4.4); Hematocrit 34.8 % (37.0-47.0); Hemoglobin 10.6 g/dL (12.0-15.0); Immature Granulocyte Absolute 0.12 K/mm3 (0.00-0.031); Lymphocytes Absolute Auto 0.96 K/mm3 (0.9-3.2); Lymphocytes Percent Auto 7.8 % (18.3-44.2); Mean Corpuscular HGB Conc 30.5 g/dl (32-36); Mean Corpuscular Volume 88.8 fl (80-100); Mean Platelet Volume 9.6 fl (7.4-10.4); Monocytes Absolute Auto 0.8 K/mm3 (0.1-0.6); Monocytes Percent Auto 6.8 % (2.6-8.5); Neutrophils Absolute Auto 10.2 K/mm3 (1.3-6.7); Neutrophils Percent Auto 83.3 % (45.5-73.1); Platelet Count Result 299 k/mm3 (150-375); Red Blood Count 3.92 M/mm3 (4.2-5.4); Red Cell Distribution Width 15.7 % (11.5-14.5); White Blood Count 12.3 K/mm3 (4.5-10.0)
[2021-03-30 07:20] LABS: Alanine Aminotransferase 83 U/L (4-35); Albumin Level 3.3 g/dL (3.5-5.1); Alkaline Phosphatase 673 U/L (38-126); Anion Gap 9 mmol/L (8-16); Aspartate Amino Transferase 47 U/L (14-36); Bilirubin,Total 3.9 mg/dL (0.2-1.3); Blood Urea Nitrogen 17 mg/dL (7-17); Carbon Dioxide 28 mmol/L (22-30); Chloride 100 mmol/L (98-107); Estimated CRCL calculation 104 ml/min; Estimated Glomerular Filt Rate > 60; Glucose 108 mg/dL (65-110); Potassium 4.4 mmol/L (3.4-5.0); Sodium 137 mmol/L (137-145)
[2021-03-30 07:29] LABS: Lipase 3082 U/L (23-300)
[2021-03-30] MEDS: PANTOPRAZOLE SODIUM IV 40 MG VIAL IV PUSH (07:47)
--- NOTE | 2021-03-30 08:47 | WPDANESEPPF ---
Anes - Initial Pre Proc Eval Procedure: Operation Date: 03/30/21 09:30 Proposed Procedures p Laparoscopic Cholecystectomy with Intra Operative Cholangiogram - Guy Turcios MD Date/Time: 03/30/21 08:47 Surgeon: Israel Robert MD Pre Op Diagnosis: pancreatitis, cholecystitis, cardiomyopathy Patient Data Age: 66 Gender: F Height: 1.78 m Weight: 139.3 kg Last Vital Signs Temp 36.6 C 03/30/21 04:01 Pulse 78 03/30/21 04:01 Resp 17 03/30/21 04:01 BP 152/63 H 03/30/21 04:01 Pulse Ox 100 03/30/21 04:01 Allergies Allergy/AdvReac Type Severity Reaction Status Date / Time No Known Allergies Allergy Verified 05/05/20 07:33 Home Medications Medication Instructions Recorded Confirmed Type aspirin 81 mg PO DAILY 05/04/20 05/05/20 History atorvastatin 20 mg PO DAILY 05/04/20 05/05/20 History bupropion HCl 150 mg PO QAM 05/04/20 05/05/20 History bupropion HCl 300 mg PO QAM 05/04/20 05/05/20 History carvedilol 3.125 mg PO BID 05/04/20 05/05/20 History diclofen hho-wgwfpm-b-parker-ment ea 05/04/20 History duloxetine 60 mg PO DAILY 05/04/20 05/05/20 History furosemide [Lasix] 40 mg PO DAILY 05/04/20 05/05/20 History losartan 25 mg PO DAILY 05/04/20 05/05/20 History lisinopril 10/11/20 History pantoprazole PO 10/11/20 History potassium chloride meq PO 10/11/20 History spironolactone 10/11/20 History allopurinol 300 mg tablet 300 mg PO DAILY #90 tablet 03/13/21 Rx diclofenac sodium 75 mg 75 mg PO BID #60 tablet 03/13/21 Rx tablet,delayed release Laboratory Tests 03/29/21 03/29/21 03/29/21 14:57 14:57 14:57 WBC 11.1 K/mm3 H K/mm3 (4.5-10.0) RBC 3.73 M/mm3 L M/mm3 (4.2-5.4) Hgb 10.2 g/dL L g/dL (12.0-15.0) Hct 33.7 % L % (37.0-47.0) MCV 90.3 fl fl (80-100) MCH 27.3 pg pg (26-34) MCHC 30.3 g/dl L g/dl (32-36) RDW 15.8 % H % (11.5-14.5) Plt Count 270 k/mm3 k/mm3 (150-375) MPV 9.4 fl fl (7.4-10.4) Immature Gran % (Auto) 1.2 % H % (0-0.5) Neut % (Auto) 79.7 % H % (45.5-73.1) Lymph % (Auto) 10.8 % L % (18.3-44.2) [place] % (Auto) 6.7 % % (2.6-8.5) Eos % (Auto) 1.1 % % (0-4.4) Baso % (Auto) 0.5 % % (0.2-1.2) Lymph # (Auto) 1.20 K/mm3 K/mm3 (0.9-3.2) [place] # (Auto) 0.7 K/mm3 H K/mm3 (0.1-0.6) Eos # (Auto) 0.1 K/mm3 K/mm3 (0-0.3) Baso # (Auto) 0.1 K/mm3 K/mm3 (0.0-0.1) Abs Immat Gran (auto) 0.13 K/mm3 H K/mm3 (0.00-0.031) Absolute Neuts (auto) 8.9 K/mm3 H K/mm3 (1.3-6.7) Absolute Nucleated RBC 0.0 K/mm3 K/mm3 (0.0-0.012) Nucleated RBC % 0.0 % % (0.0-0.2) Sodium 134 mmol/L L mmol/L (137-145) Potassium 4.5 mmol/L mmol/L (3.4-5.0) Chloride 100 mmol/L mmol/L (98-107) Carbon Dioxide 25 mmol/L mmol/L (22-30) Anion Gap 9 mmol/L mmol/L (8-16) BUN 16 mg/dL mg/dL (7-17) Creatinine 0.70 mg/dL mg/dL (0.7-1.0) Estim Creat Clear Calc 104 ml/min ml/min Estimated GFR > 60 (59 - ) Glucose 90 mg/dL mg/dL (65-110) Calcium 9.2 mg/dL mg/dL (8.4-10.2) Total Bilirubin 2.4 mg/dL H mg/dL (0.2-1.3) AST 23 U/L U/L (14-36) ALT 70 U/L H U/L (4-35) Alkaline Phosphatase 567 U/L H U/L (38-126) Total Protein 6.0 g/dL L g/dL (6.3-8.2) Albumin 3.4 g/dL L g/dL (3.5-5.1) Lipase Blood Type A Positive Antibody Screen Negative 03/30/21 03/30/21 06:08 06:08 WBC 12.3 K/mm3 H K/mm3 (4.5-10.0) RBC 3.92 M/mm3 L M/mm3 (4.2-5.4) Hgb 10.6 g/dL L g/dL (12.0-15.0) Hct 34.8 % L % (37.0-47.0) MCV 88.8 fl fl (80-100) MCH 27.0 pg pg (26-34) MCHC 30.5 g/dl L g/dl (
[2021-03-30] MEDS: LACTATED RINGERS 1,000 ML 30 ML IV CONT ×2 (08:48→12:48)
[2021-03-30] MEDS: ACETAMINOPHEN 500 MG TABLET 1000 MG PO (08:51)
[2021-03-30] MEDS: SCOPOLAMINE 1.5 MG PATCH TRANSDERM (08:53)
--- NOTE | 2021-03-30 09:15 | P.PNIM_ITS ---
Progress Note: A&P Assessment and Plan (1) Acute pancreatitis: Code(s): K85.90 - Acute pancreatitis without necrosis or infection, unspecified Status: Deleted Assessment and Plan: * Lipase 8352 upon admission and 3082 today * Zosyn on board * IV fluids * GI consult today * MRCP: Acute cholecystitis with stone in the cystic duct, Acute interstitial pancreatitis, Mildly dilated common duct. No choledocholithiasis, Portal vein thrombosis in posterior segment right hepatic lobe, 13 mm mass with delayed peripheral hyperenhancement in right hepatic lobe. The differential diagnosis includes abscess, hemangioma, and focal nodular hyperplasia, Hemangiomas in the lumbar spine correlating with the CT abnormalities. * Two percutaneous drains have been placed with stone removal * Trend labs (2) Cholecystitis: Code(s): K81.9 - Cholecystitis, unspecified Status: Deleted Assessment and Plan: * MRCP shows acute cholecystitis * US RUQ Cholelithiasis * IV fluids * GI consulted thank you * General surgery consulted thank you * NPO for now * Percutaneous drains placed bilaterally (3) ASHD (arteriosclerotic heart disease): Code(s): I25.10 - Atherosclerotic heart disease of [place] coronary artery without angina pectoris Status: Chronic Assessment and Plan: * coronary artery disease status post CABG May 2020 * cardiology has also been consulted (4) Ischemic cardiomyopathy: Code(s): I25.5 - Ischemic cardiomyopathy Status: Chronic Assessment and Plan: * History of ischemic cardiomyopathy initially 20% now improved to 40 to 45% recent evaluation * Current home carvedilol, furosemide, spironolactone on hold due to low blood pressure * Monitor urine output (5) Hypertension: Code(s): I10 - Essential (primary) hypertension Status: Inactive Assessment and Plan: * Current blood pressure 123/47 * Blood pressure medication on hold for right now * Trend labs * Adjust medications as indicated (6) CAD (coronary artery disease): Code(s): I25.10 - Atherosclerotic heart disease of [place] coronary artery without angina pectoris Status: Inactive Assessment and Plan: * Continue medications when appropriate (7) Elevated liver enzymes: Code(s): R74.8 - Abnormal levels of other serum enzymes Status: Acute Assessment and Plan: * AST ALT elevated secondary to pancreatitis * Trend labs * Hep panel in the a.m. * RUQ shows Cholelithiasis Time Spent With Patient Time with patient: Greater than 35 minutes Subjective Date/time seen: 03/30/21 0915 Interval history: Date/Time: 03/28/21 23:10 Narrative: 66-year-old female who presents to the ED today with abdominal pain and diarrhea. She had this for several weeks but has been getting worse. The pain is in epigastric area radiates to the back. She did try Pepto-Bismol and other antacids without relief. Eating will make the pain worse. This morning she felt lightheaded and dizzy with increased abdominal pain and hence came to the ED for evaluation. No alcohol history or any abdominal surgery in the past. She has history of coronary artery disease Status post CABG and ischemic cardiomyopathy with low ejection fraction. in the ER she was noted to be h ypotensive on arrival. Laboratory evaluation showed WBC count of 16,000 mildly elevated potassium 5.1 along with elevated liver enzymes w
--- NOTE | 2021-03-30 09:15 | PM.IMPN ---
Progress Note: A&P Assessment and Plan (1) Acute pancreatitis: Code(s): K85.90 - Acute pancreatitis without necrosis or infection, unspecified Status: Deleted Assessment and Plan: Lipase 8352 upon admission and 3082 today Zosyn on board IV fluids GI consult today MRCP: Acute cholecystitis with stone in the cystic duct, Acute interstitial pancreatitis, Mildly dilated common duct. No choledocholithiasis, Portal vein thrombosis in posterior segment right hepatic lobe, 13 mm mass with delayed peripheral hyperenhancement in right hepatic lobe. The differential diagnosis includes abscess, hemangioma, and focal nodular hyperplasia, Hemangiomas in the lumbar spine correlating with the CT abnormalities. Two percutaneous drains have been placed with stone removal Trend labs (2) Cholecystitis: Code(s): K81.9 - Cholecystitis, unspecified Status: Deleted Assessment and Plan: MRCP shows acute cholecystitis US RUQ Cholelithiasis IV fluids GI consulted thank you General surgery consulted thank you NPO for now Percutaneous drains placed bilaterally (3) ASHD (arteriosclerotic heart disease): Code(s): I25.10 - Atherosclerotic heart disease of [place] coronary artery without angina pectoris Status: Chronic Assessment and Plan: coronary artery disease status post CABG May 2020 cardiology has also been consulted (4) Ischemic cardiomyopathy: Code(s): I25.5 - Ischemic cardiomyopathy Status: Chronic Assessment and Plan: History of ischemic cardiomyopathy initially 20% now improved to 40 to 45% recent evaluation Current home carvedilol, furosemide, spironolactone on hold due to low blood pressure Monitor urine output (5) Hypertension: Code(s): I10 - Essential (primary) hypertension Status: Inactive Assessment and Plan: Current blood pressure 123/47 Blood pressure medication on hold for right now Trend labs Adjust medications as indicated (6) CAD (coronary artery disease): Code(s): I25.10 - Atherosclerotic heart disease of [place] coronary artery without angina pectoris Status: Inactive Assessment and Plan: Continue medications when appropriate (7) Elevated liver enzymes: Code(s): R74.8 - Abnormal levels of other serum enzymes Status: Acute Assessment and Plan: AST ALT elevated secondary to pancreatitis Trend labs Hep panel in the a.m. RUQ shows Cholelithiasis Time Spent With Patient Time with patient: Greater than 35 minutes Subjective Date/time seen: 03/30/21 0915 Interval history: Date/Time: 03/28/21 23:10 Narrative: 66-year-old female who presents to the ED today with abdominal pain and diarrhea. She had this for several weeks but has been getting worse. The pain is in epigastric area radiates to the back. She did try Pepto-Bismol and other antacids without relief. Eating will make the pain worse. This morning she felt lightheaded and dizzy with increased abdominal pain and hence came to the ED for evaluation. No alcohol history or any abdominal surgery in the past. She has history of coronary artery disease Status post CABG and ischemic cardiomyopathy with low ejection fraction. in the ER she was noted to be hypotensive on arrival. Laboratory evaluation showed WBC count of 16,000 mildly elevated potassium 5.1 along with elevated liver enzymes with total bilirubin of 4.5 mildly elevated AST ALT but significantly elevated alkaline phosphorus 732. She also had lipase level elevated [place] 8352. CT abdomen and pelvis was done which showed gallbladder wall thickening and pericholecystic fat stranding suggestive of acute cholecystitis along with mild peripancreatic fat stranding suggesting uncomplicated interstitial pancreatitis. In this setting she is admitted for further evaluation and management. General surgery and GI has been consu
--- NOTE | 2021-03-30 09:41 | WPDHPUPDATE1 ---
History and Physical Update Update Date/Time: 03/30/21 09:41 History and Physical has been reviewed, including an updated exam of the patient. There are NO changes in the patient's condition. Risks, benefits, and alternatives have been discussed and questions answered. Patient agrees to proceed with procedure.
[2021-03-30] MEDS: ceFAZolin 3 GM/D5W 100 ML 100 ML IVPB (09:47)
[2021-03-30] MEDS: BUPIVACAINE/EPINEPHRINE 0.5% 10 ML VIAL 30 ML INFILTRATE (10:30)
--- NOTE | 2021-03-30 13:02 | W.PM.PROC2 ---
Procedure Note - Detailed Date of Procedure 03/30/21 Pre-op Diagnosis Acute biliary pancreatitis Post-op Diagnosis other (Gangrenous cholecystitis with stones and purulent bile, choledocholithiasis, biliary pancreatitis) Procedure Performed Laparoscopic cholecystectomy with intraoperative cholangiogram Surgeon Guy Turcios MD Senior Supplier Quality Engineer Edi MANNING Anesthesia general and local Indications Patient is a 66-year-old woman who presented with severe biliary pancreatitis and gallstones. Her abdominal pain had stopped yesterday and her lipase had decreased markedly. MRCP yesterday showed multiple gallstones, stones in the cystic duct but no common bile duct stones. Evidence of acute pancreatitis was still present on MRCP. Patient had an elevation of her lipase and total bilirubin on this morning's labs and had pain last night with no pain but nausea this morning. She is taken to surgery now for laparoscopic cholecystectomy with intraoperative cholangiogram. Findings Patient had gangrenous very severe acute cholecystitis with gallstones. There was purulent bile in the gallbladder and dissection was very difficult with tissue planes of very obscured by inflammation. The gallbladder was not thick walled and was fragile with holes in the gallbladder occurring easily. The surgery lasted 2-1/2 hours which is 5 times longer than normal. Blood loss was 200 cc which is easily 10 times more than is typical. Intraoperative cholangiogram showed distal common bile duct stones with no flow of contrast into the duodenum. The biliary ducts appeared slightly dilated. At the conclusion of the surgery, there were small ducts, ducts of [place], in the gallbladder fossa that were leaking small amounts of bile. These were dissected and clipped such that no further bile leakage was evident. There was a lot of diffuse oozing of blood both from the gallbladder fossa and the undersurface of the liver which had numerous adhesions as well. Two applications of Surgiflo were required to achieve hemostasis. Two hundred nineteen Arabic Gurwinder drains were placed in the right upper quadrant to ensure adequate drainage of the areas of dissection and and potential biliary leakage. Description of Procedure The patient was taken to surgery and induced into general anesthesia. The abdomen was prepped and draped. Trocars were placed in the usual fashion using 0.5% Marcaine with epinephrine and applied Medical optical trocars. Once all the trocars were in place and we were able to visualize the right upper quadrant, it was evident that this was a case of severe cholecystitis. There were also numerous [place] Jose Luigi type adhesions to the dome of the liver. These were taken down initially. Then adhesions of the omentum to the undersurface of the liver were carefully freed. The omentum was stuck to the gallbladder with pretty dense adhesions. Using a combination of sharp and blunt dissection, I was able to free the omentum from the gallbladder. Once the fundus of the gallbladder was exposed, I used a laparoscopic aspirator and decompressed the gallbladder. It was noted that there was purulent bile within the gallbladder. Then on attempting to retract the gallbladder, the fundus developed a hole leaking purulent bile. Suction was introduced into the gallbladder we suctioned this away as best possible. Eventually week cleared the gallbladder of all the purulent bile so there was minimal if any leakage from here. The gallbladder was elevated and the remaining adhesions were freed from the gallbladder down to the cholecystohepatic triangle. These adhesions were severely inflamed and there was oozing of blood during the dissection. Once the gallbladder was exposed, we retracted it anterosuperiorly. The patient had fatty liver which did not retract easily as it was not supple. The adhesions were severe and the gallbladder surface was pretty fibrotic. Trying to use mostly gentle blunt dissecti
--- NOTE | 2021-03-30 14:04 | WPDGIPROGNO ---
Progress Note: A&P Assessment and Plan (1) Gallstone pancreatitis: Code(s): K85.10 - Biliary acute pancreatitis without necrosis or infection Status: Acute Assessment and Plan: patient admitted with gallstone pancreatitis. Patient underwent cholecystectomy today with findings of a gangrenous gallbladder. Intraoperative cholangiogram suggest she also has CBD stones. Plan is for continued antibiotics. Dr. Zeeshan slade will cover over the weekend. Anticipate ERCP early this next week if patient's condition allows. (2) Choledocholithiasis: Code(s): K80.50 - Calculus of bile duct without cholangitis or cholecystitis without obstruction Status: Acute Assessment and Plan: Choledocholithiasis suggested by intraoperative cholangiogram. Preoperative MRCP revealed only cystic duct stone no evidence of stones in the bile duct initially. Plan is for ERCP next week. Plan to keep on antibiotics and watch closely over the weekend. (3) Obesity, morbid, BMI 40.0-49.9: Code(s): E66.01 - Morbid (severe) obesity due to excess calories Status: Chronic (4) ASHD (arteriosclerotic heart disease): Code(s): I25.10 - Atherosclerotic heart disease of [place] coronary artery without angina pectoris Status: Chronic Subjective Date/time seen: 03/30/21 14:04 Patient is status post cholecystectomy today. Apparently had a gangrenous gallbladder. She had significant pus within the gallbladder. Intraoperative cholangiogram suggest she may have common bile duct gallstones not evident on recent MRCP. Review of Systems Review of Systems: ROS unobtainable: Yes unobtainable due to medical condition Exam Narrative: Patient with Obese abdomen. Patient is currently postoperative period Objective Data Vital Signs Vital Signs: Vital Signs - 24 hr 03/29/21 15:35 03/29/21 16:00 03/29/21 20:00 Temperature 97.1 F L Pulse Rate 75 75 63 Respiratory Rate 20 Blood Pressure 133/59 L Pulse Oximetry 100 03/29/21 20:33 03/30/21 00:00 03/30/21 04:00 Temperature 97.5 F L Pulse Rate 61 54 L 66 Respiratory Rate 16 Blood Pressure 120/54 L Pulse Oximetry 97 03/30/21 04:01 03/30/21 08:00 03/30/21 08:56 Temperature 97.9 F 97.8 F Pulse Rate 78 73 82 Respiratory Rate 17 16 Blood Pressure 152/63 H 119/54 L Pulse Oximetry 100 97 03/30/21 12:48 03/30/21 13:00 03/30/21 13:15 Temperature 97.3 F L Pulse Rate 79 83 75 Respiratory Rate 17 16 15 Blood Pressure 135/55 L 141/55 H 114/55 L Pulse Oximetry 100 100 100 03/30/21 13:30 03/30/21 13:45 Temperature Pulse Rate 71 69 Respiratory Rate 14 14 Blood Pressure 114/49 L 111/52 L Pulse Oximetry 96 96 Intake/Output Intake/Output: Intake & Output 03/27/21 03/28/21 03/29/21 03/30/21 23:59 23:59 23:59 23:59 Intake Total 2100 3270 1550 Output Total 1500 1422 Balance 2100 1770 128 Meds/Results Medications: Active Medications Generic Name Dose Route Start Last Admin Trade Name Freq PRN Reason Stop Dose Admin Fentanyl Citrate 25 mcg 03/30/21 08:51 Fentanyl Citrate Inj (*Crx) 100 Mcg/2 Ml Vial IV PUSH Q2M PRN Pain Hydromorphone HCl 0.5 mg 03/28/21 17:20 03/29/21 18:23 Hydromorphone Hcl Inj (*Crx) 1 Mg/Ml Syr IV PUSH 0.5 mg Q3HR PRN Administration Pain Rated 7-10 Lactated Ringer's 1,000 mls @ 125 mls/hr 03/28/21 17:20 03/30/21 07:53 Lr - Lactated Ringers Iv IV CONT 0 mls/hr .Q8H [place] Infusion Piperacillin/Tazobactam/Dextrose 3.375 gm in 50 mls @ 100 mls/hr 03/28/21 22:30 03/30/21 06:40 Zosyn 3.375 Gm/D5w 50ml Pm IVPB Infused Q6HR [place] Infusion Lactated Ringer's 1,000 mls @ 30 mls/hr 03/30/21 08:00 03/30/21 08:48 Lr - Lactated Ringers Iv IV CONT 30 mls/hr .Q24H [place] Administration Lactated Ringer's 1,000 mls @ 30 mls/hr 03/30/21 08:55 Lr - Lactated Ringers Iv IV CONT .Q24H [place] Ketorolac Tromethamine 15 mg 03/30/21 09:30
[2021-03-30] MEDS: LACTATED RINGERS 1,000 ML 100 ML IV CONT (16:34)
[2021-03-31] VITALS (10 sets, daily range): BP systolic 107–138; BP diastolic 43–62; PULSE 71–104; RESP 14–20; TEMP 36–37.3; O2SAT 96–100
[2021-03-31 06:19] LABS: Hematocrit 30.2 % (37.0-47.0); Hemoglobin 9.3 g/dL (12.0-15.0); Mean Corpuscular HGB Conc 30.8 g/dl (32-36); Mean Corpuscular Hemoglobin 27.5 pg (26-34); Mean Corpuscular Volume 89.3 fl (80-100); Mean Platelet Volume 9.5 fl (7.4-10.4); Platelet Count Result 300 k/mm3 (150-375); Red Blood Count 3.38 M/mm3 (4.2-5.4); Red Cell Distribution Width 15.8 % (11.5-14.5); White Blood Count 15.7 K/mm3 (4.5-10.0)
[2021-03-31 06:39] LABS: Alanine Aminotransferase 77 U/L (4-35); Alkaline Phosphatase 526 U/L (38-126); Anion Gap 4 mmol/L (8-16); Aspartate Amino Transferase 38 U/L (14-36); Bilirubin,Total 1.9 mg/dL (0.2-1.3); Blood Urea Nitrogen 13 mg/dL (7-17); Calcium 8.8 mg/dL (8.4-10.2); Carbon Dioxide 28 mmol/L (22-30); Chloride 101 mmol/L (98-107); Estimated CRCL calculation 92 ml/min; Estimated Glomerular Filt Rate > 60; Glucose 118 mg/dL (65-110); Lipase 207 U/L (23-300); Magnesium 1.5 mg/dL (1.6-2.3); Potassium 4.2 mmol/L (3.4-5.0); Sodium 133 mmol/L (137-145)
[2021-03-31 08:01] LABS: Hepatitis B Surface Antigen Negative (Negative)
[2021-03-31 08:06] LABS: HAV RESULT Negative (Negative); Hepatitis B Core IgM Result Negative (Negative)
[2021-03-31 08:18] LABS: Hepatitis C Virus Antibody Negative (Negative)
[2021-03-31] MEDS: ENOXAPARIN 40 MG/0.4 ML SYRINGE SUB-Q (08:19)
[2021-03-31] MEDS: PANTOPRAZOLE 40 MG TABLET PO (08:19)
--- NOTE | 2021-03-31 08:30 | P.PNIM_ITS ---
Progress Note: A&P Assessment and Plan (1) Acute pancreatitis: Code(s): K85.90 - Acute pancreatitis without necrosis or infection, unspecified Status: Deleted Assessment and Plan: * Lipase 8352 upon admission and 207 today * Zosyn on board * IV fluids * GI consult * MRCP: Acute cholecystitis with stone in the cystic duct, Acute interstitial pancreatitis, Mildly dilated common duct. No choledocholithiasis, Portal vein thrombosis in posterior segment right hepatic lobe, 13 mm mass with delayed peripheral hyperenhancement in right hepatic lobe. The differential diagnosis includes abscess, hemangioma, and focal nodular hyperplasia, Hemangiomas in the lumbar spine correlating with the CT abnormalities. * Two percutaneous drains have been placed with stone removal * Trend labs (2) Cholecystitis: Code(s): K81.9 - Cholecystitis, unspecified Status: Deleted Assessment and Plan: * MRCP shows acute cholecystitis * US RUQ Cholelithiasis * IV fluids * GI consulted thank you * General surgery consulted thank you * Low fat diet * Percutaneous drains placed bilaterally (3) ASHD (arteriosclerotic heart disease): Code(s): I25.10 - Atherosclerotic heart disease of [place] coronary artery without angina pectoris Status: Chronic Assessment and Plan: * coronary artery disease status post CABG May 2020 * cardiology has also been consulted (4) Ischemic cardiomyopathy: Code(s): I25.5 - Ischemic cardiomyopathy Status: Chronic Assessment and Plan: * History of ischemic cardiomyopathy initially 20% now improved to 40 to 45% recent evaluation * Current home carvedilol, furosemide, spironolactone on hold due to low blood pressure * Monitor urine output (5) Hypertension: Code(s): I10 - Essential (primary) hypertension Status: Inactive Assessment and Plan: * Current blood pressure 107/43 * Blood pressure medication on hold for right now * Trend labs * Adjust medications as indicated (6) CAD (coronary artery disease): Code(s): I25.10 - Atherosclerotic heart disease of [place] coronary artery without angina pectoris Status: Inactive Assessment and Plan: * Continue medications when appropriate (7) Elevated liver enzymes: Code(s): R74.8 - Abnormal levels of other serum enzymes Status: Acute Assessment and Plan: * AST ALT elevated secondary to pancreatitis * Trend labs * Hep panel negative * RUQ shows Cholelithiasis Subjective Date/time seen: 03/31/21 0830 Interval history: Date/Time: 03/28/21 23:10 Narrative: 66-year-old female who presents to the ED today with abdominal pain and diarrhea. She had this for several weeks but has been getting worse. The pain is in epigastric area radiates to the back. She did try Pepto-Bismol and other antacids without relief. Eating will make the pain worse. This morning she felt lightheaded and dizzy with increased abdominal pain and hence came to the ED for evaluation. No alcohol history or any abdominal surgery in the past. She has history of coronary artery disease Status post CABG and ischemic cardiomyopathy with low ejection fraction. in the ER she was noted to be hypotensive on arrival. Laboratory evaluation showed WBC count of 16,000 mildly elevated potassium 5.1 along with elevated liver enzymes with total bilirubin of 4.5 mildly elevated AST ALT but significantly elevated alkali
--- NOTE | 2021-03-31 08:30 | PM.IMPN ---
Progress Note: A&P Assessment and Plan (1) Acute pancreatitis: Code(s): K85.90 - Acute pancreatitis without necrosis or infection, unspecified Status: Deleted Assessment and Plan: Lipase 8352 upon admission and 207 today Zosyn on board IV fluids GI consult MRCP: Acute cholecystitis with stone in the cystic duct, Acute interstitial pancreatitis, Mildly dilated common duct. No choledocholithiasis, Portal vein thrombosis in posterior segment right hepatic lobe, 13 mm mass with delayed peripheral hyperenhancement in right hepatic lobe. The differential diagnosis includes abscess, hemangioma, and focal nodular hyperplasia, Hemangiomas in the lumbar spine correlating with the CT abnormalities. Two percutaneous drains have been placed with stone removal Trend labs (2) Cholecystitis: Code(s): K81.9 - Cholecystitis, unspecified Status: Deleted Assessment and Plan: MRCP shows acute cholecystitis US RUQ Cholelithiasis IV fluids GI consulted thank you General surgery consulted thank you Low fat diet Percutaneous drains placed bilaterally (3) ASHD (arteriosclerotic heart disease): Code(s): I25.10 - Atherosclerotic heart disease of [place] coronary artery without angina pectoris Status: Chronic Assessment and Plan: coronary artery disease status post CABG May 2020 cardiology has also been consulted (4) Ischemic cardiomyopathy: Code(s): I25.5 - Ischemic cardiomyopathy Status: Chronic Assessment and Plan: History of ischemic cardiomyopathy initially 20% now improved to 40 to 45% recent evaluation Current home carvedilol, furosemide, spironolactone on hold due to low blood pressure Monitor urine output (5) Hypertension: Code(s): I10 - Essential (primary) hypertension Status: Inactive Assessment and Plan: Current blood pressure 107/43 Blood pressure medication on hold for right now Trend labs Adjust medications as indicated (6) CAD (coronary artery disease): Code(s): I25.10 - Atherosclerotic heart disease of [place] coronary artery without angina pectoris Status: Inactive Assessment and Plan: Continue medications when appropriate (7) Elevated liver enzymes: Code(s): R74.8 - Abnormal levels of other serum enzymes Status: Acute Assessment and Plan: AST ALT elevated secondary to pancreatitis Trend labs Hep panel negative RUQ shows Cholelithiasis Subjective Date/time seen: 03/31/21 0830 Interval history: Date/Time: 03/28/21 23:10 Narrative: 66-year-old female who presents to the ED today with abdominal pain and diarrhea. She had this for several weeks but has been getting worse. The pain is in epigastric area radiates to the back. She did try Pepto-Bismol and other antacids without relief. Eating will make the pain worse. This morning she felt lightheaded and dizzy with increased abdominal pain and hence came to the ED for evaluation. No alcohol history or any abdominal surgery in the past. She has history of coronary artery disease Status post CABG and ischemic cardiomyopathy with low ejection fraction. in the ER she was noted to be hypotensive on arrival. Laboratory evaluation showed WBC count of 16,000 mildly elevated potassium 5.1 along with elevated liver enzymes with total bilirubin of 4.5 mildly elevated AST ALT but significantly elevated alkaline phosphorus 732. She also had lipase level elevated at 8352. CT abdomen and pelvis was done which showed gallbladder wall thickening and pericholecystic fat stranding suggestive of acute cholecystitis along with mild peripancreatic fat stranding suggesting uncomplicated interstitial pancreatitis. In this setting she is admitted for further evaluation and management. General surgery and GI has been consulted from the ER. Date/Time 03/29/21 3955 Patient stated that she feels h
[2021-03-31] MEDS: LACTATED RINGERS 1,000 ML 100 ML IV CONT ×2 (12:08→23:26)
--- NOTE | 2021-03-31 12:59 | PM.PNGS ---
Progress Note: A&P Assessment and Plan (1) Acute biliary pancreatitis without infection or necrosis: Code(s): K85.10 - Biliary acute pancreatitis without necrosis or infection Status: Acute Assessment and Plan: improving. LFTs are improved despite cholangiogram yesterday showing obstructing common duct stones. Potentially these have passed. No evidence of recurrent pancreatitis. (2) Acute suppurative cholecystitis: Code(s): K81.0 - Acute cholecystitis Status: Acute Assessment and Plan: Doing well postop day 1. No evidence of bile leak in either CICI drain. Liver function tests show improvement. Patient tolerating oral intake well. Advance to low-fat diet and increase activity. Continue IV antibiotics. Subjective Subjective Date/Time Seen: 03/31/21 12:59 Post Op day: 1 Patient reports: feels better, tolerating liquids well and no bowel movement Review of Systems Review of Systems: All systems reviewed & are unremarkable except as noted in HPI and below (HPI) Constitutional: Constitutional: Denies chills and Denies fever(s) Cardiovascular: Cardiovascular: Denies chest pain, Denies rapid heart rate, Denies lightheadedness and Denies orthopnea Respiratory: Respiratory: Denies cough and Denies dyspnea Gastrointestinal: Gastrointestinal: Reports abdominal pain and Denies nausea Exam GI: Inspection: incision ( Dry and healing well), obesity and other ( no bile in either CICI drain) GI Palp: Yes Soft to palpation, Yes Tenderness to palpation present (GI) and Yes No hepatosplenomegaly present Objective Data Vital Signs Vital Signs: Vital Signs - 24 hr 03/30/21 13:00 03/30/21 13:15 03/30/21 13:30 Temperature Pulse Rate 83 75 71 Respiratory Rate 16 15 14 Blood Pressure 141/55 H 114/55 L 114/49 L Pulse Oximetry 100 100 96 03/30/21 13:45 03/30/21 14:50 03/30/21 15:05 Temperature 36.1 C L 36.6 C Pulse Rate 69 72 778 H Respiratory Rate 14 12 12 Blood Pressure 111/52 L 101/47 L 123/47 L Pulse Oximetry 96 98 99 03/30/21 15:40 03/30/21 16:00 03/30/21 16:44 Temperature 36.6 C 36.4 C Pulse Rate 88 79 78 Respiratory Rate 14 14 Blood Pressure 111/63 109/65 Pulse Oximetry 100 100 03/30/21 20:00 03/30/21 20:01 03/30/21 21:56 Temperature 36.1 C L Pulse Rate 78 80 88 Respiratory Rate 16 Blood Pressure 117/59 L Pulse Oximetry 100 97 03/31/21 00:00 03/31/21 00:01 03/31/21 04:00 Temperature 36.2 C L Pulse Rate 89 76 71 Respiratory Rate 18 Blood Pressure 118/62 Pulse Oximetry 100 03/31/21 04:01 03/31/21 08:00 Temperature 36.0 C L Pulse Rate 74 104 H Respiratory Rate 18 Blood Pressure 109/60 Pulse Oximetry 99 Intake/Output Intake/Output: Intake & Output 03/28/21 03/29/21 03/30/21 03/31/21 23:59 23:59 23:59 23:59 Intake Total 2100 3270 3300 1230 Output Total 1500 2037 1040 Balance 2100 1770 1263 190 Meds/Results Medications: Active Medications Generic Name Dose Route Start Last Admin Trade Name Freq PRN Reason Stop Dose Admin Acetaminophen 500 mg 03/30/21 14:16 Acetaminophen 500 Mg Tablet PO Q6H PRN Mild Pain (1-3) or Fever Hydrocodone Bitart/Acetaminophen 1 tab 03/30/21 14:16 Hydrocodone/Acetaminophen (*Crx) 5-325 Mg Tablet PO Q4H PRN Pain Rated 4-6 Allopurinol 300 mg 04/01/21 09:00 Allopurinol 300 Mg Tablet PO DAILY [facility] Atorvastatin Calcium 20 mg 04/01/21 09:00 Atorvastatin 20 Mg Tablet PO DAILY [facility] Diclofenac Sodium 75 mg 03/31/21 12:56 Diclofenac Sod 75 Mg Tablet.Ec PO BID PRN Pain Duloxetine HCl 60 mg 04/01/21 09:00 Duloxetine Hcl 60 Mg Capsule.Dr PO DAILY [facility] Enoxaparin Sodium 40 mg 03/31/21 09:00 03/31/21 08:19 Enoxaparin 40 Mg/0.4 Ml Syringe SUB-Q 40 mg DAILY [facility] Administration Furosemide 40 mg 04/01/21 09:00 Furosemide 40 Mg Tablet PO DAILY [facility] Piperacillin/Tazobactam/Dextrose 3.375 gm in
--- NOTE | 2021-03-31 13:14 | WPDGIPROGNO ---
Progress Note: A&P Additional Plan VINCE guajardo Shawn 31 Mar 2021 Sore. Denies n/v. Mauro po. VSS soft, incisional tenderness Hct 30. WBC 16. TBili 3.9->1.9, A/P 673->526, AST 38, ALT 77. Lipase 3082->207 A/P A. GS pancreatitis with abnormal LFT's and abnormal imaging-biliary: - POD # 1 lap CCx - IOC with possible biliary obstruction - Labs and clinical exam improving - ABx per Surgery - Possible ERCP 04-02-[address] Shawn Crouch Chronic blood loss anemia: no active bleed; observe. Thanks, [facility] [phone] Subjective Date/time seen: 03/31/21 13:14 Objective Data Vital Signs Vital Signs: Vital Signs - 24 hr 03/30/21 13:15 03/30/21 13:30 03/30/21 13:45 Temperature Pulse Rate 75 71 69 Respiratory Rate 15 14 14 Blood Pressure 114/55 L 114/49 L 111/52 L Pulse Oximetry 100 96 96 03/30/21 14:50 03/30/21 15:05 03/30/21 15:40 Temperature 36.1 C L 36.6 C 36.6 C Pulse Rate 72 778 H 88 Respiratory Rate 12 12 14 Blood Pressure 101/47 L 123/47 L 111/63 Pulse Oximetry 98 99 100 03/30/21 16:00 03/30/21 16:44 03/30/21 20:00 Temperature 36.4 C Pulse Rate 79 78 78 Respiratory Rate 14 Blood Pressure 109/65 Pulse Oximetry 100 03/30/21 20:01 03/30/21 21:56 03/31/21 00:00 Temperature 36.1 C L Pulse Rate 80 88 89 Respiratory Rate 16 Blood Pressure 117/59 L Pulse Oximetry 100 97 03/31/21 00:01 03/31/21 04:00 03/31/21 04:01 Temperature 36.2 C L 36.0 C L Pulse Rate 76 71 74 Respiratory Rate 18 18 Blood Pressure 118/62 109/60 Pulse Oximetry 100 99 03/31/21 08:00 Temperature Pulse Rate 104 H Respiratory Rate Blood Pressure Pulse Oximetry Intake/Output Intake/Output: Intake & Output 03/28/21 03/29/21 03/30/2103/31/22 23:59 23:59 23:59 23:59 Intake Total 2100 3270 3300 1230 Output Total 1500 2037 1040 Balance 2100 1770 1263 190 Meds/Results Medications: Active Medications Generic Name Dose Route Start Last Admin Trade Name Freq PRN Reason Stop Dose Admin Acetaminophen 500 mg 03/30/21 14:16 Acetaminophen 500 Mg Tablet PO Q6H PRN Mild Pain (1-3) or Fever Hydrocodone Bitart/Acetaminophen 1 tab 03/30/21 14:16 Hydrocodone/Acetaminophen (*Crx) 5-325 Mg Tablet PO Q4H PRN Pain Rated 4-6 Allopurinol 300 mg 04/01/21 09:00 Allopurinol 300 Mg Tablet PO DAILY [facility] Atorvastatin Calcium 20 mg 04/01/21 09:00 Atorvastatin 20 Mg Tablet PO DAILY [facility] Diclofenac Sodium 75 mg 03/31/21 12:56 Diclofenac Sod 75 Mg Tablet.Ec PO BID PRN Pain Duloxetine HCl 60 mg 04/01/21 09:00 Duloxetine Hcl 60 Mg Capsule.Dr PO DAILY [facility] Enoxaparin Sodium 40 mg 03/31/21 09:00 03/31/21 08:19 Enoxaparin 40 Mg/0.4 Ml Syringe SUB-Q 40 mg DAILY [facility] Administration Furosemide 40 mg 04/01/21 09:00 Furosemide 40 Mg Tablet PO DAILY [facility] Piperacillin/Tazobactam/Dextrose 3.375 gm in 50 mls @ 100 mls/hr 03/28/21 22:30 03/31/21 12:08 Zosyn 3.375 Gm/D5w 50ml Pm IVPB 100 mls/hr Q6HR [place] Administration Lactated Ringer's 1,000 mls @ 100 mls/hr 03/30/21 14:16 03/31/21 12:08 Lr - Lactated Ringers Iv IV CONT 100 mls/hr .Q10H [place] Administration Lisinopril 2.5 mg 04/01/21 09:00 Lisinopril 2.5 Mg Tablet PO DAILY [facility] Morphine Sulfate 1 mg 03/30/21 14:16 Morphine Sulfate (*Crx) 2 Mg/Ml Inj IV PUSH Q2H PRN Pain Rated 4-6 Morphine Sulfate 2 mg 03/30/21 14:16 Morphine Sulfate (*Crx) 4 Mg/Ml Inj IV PUSH Q2H PRN Pain Rated 7-10 Morphine Sulfate 0.5 mg 03/30/21 15:01 Morphine Sulfate (*Crx) 2 Mg/Ml Inj IV PUSH Q4H PRN Severe Pain 7-10 Naloxone HCl 0.1 mg 03/30/21 14:16 Naloxone Hcl 0.4 Mg/Ml Vial IV PUSH Q2M PRN Opiate Reversal Ondansetron HCl 4 mg 03/30/21 14:16 Ondansetron Inj 4 Mg/2 Ml Vial IV PUSH Q4H PRN Nausea And Vomiting Pantoprazole Sodium 40 mg 03/31/21 09:00 03/31/21 08:19 [place]
[2021-03-31] MEDS: MAGNESIUM SULF 4 GM/WATER100ML 4 GM/100 ML BAG IVPB (17:54)
[2021-03-31] MEDS: SIMETHICONE 80 MG TAB.CHEW PO (17:54)
[2021-03-31] MEDS: ACETAMINOPHEN 500 MG TABLET PO (21:47)
[2021-04-01] VITALS (8 sets, daily range): BP systolic 106–135; BP diastolic 43–53; PULSE 65–108; RESP 14–18; TEMP 35.9–37.2; O2SAT 93–100
[2021-04-01 06:27] LABS: Hematocrit 30.6 % (37.0-47.0); Hemoglobin 9.2 g/dL (12.0-15.0); Mean Corpuscular HGB Conc 30.1 g/dl (32-36); Mean Corpuscular Hemoglobin 27.6 pg (26-34); Mean Corpuscular Volume 91.9 fl (80-100); Mean Platelet Volume 9.3 fl (7.4-10.4); Platelet Count Result 250 k/mm3 (150-375); Red Blood Count 3.33 M/mm3 (4.2-5.4); Red Cell Distribution Width 15.9 % (11.5-14.5); White Blood Count 9.4 K/mm3 (4.5-10.0)
[2021-04-01 06:37] LABS: Alanine Aminotransferase 49 U/L (4-35); Alkaline Phosphatase 392 U/L (38-126); Anion Gap 2 mmol/L (8-16); Aspartate Amino Transferase 19 U/L (14-36); Bilirubin,Total 1.5 mg/dL (0.2-1.3); Blood Urea Nitrogen 8 mg/dL (7-17); Calcium 8.4 mg/dL (8.4-10.2); Carbon Dioxide 26 mmol/L (22-30); Chloride 105 mmol/L (98-107); Estimated CRCL calculation 104 ml/min; Estimated Glomerular Filt Rate > 60; Glucose 114 mg/dL (65-110); Sodium 133 mmol/L (137-145)
--- NOTE | 2021-04-01 08:30 | PM.IMPN ---
Progress Note: A&P Assessment and Plan (1) Acute pancreatitis: Code(s): K85.90 - Acute pancreatitis without necrosis or infection, unspecified Status: Deleted Assessment and Plan: Lipase 8352 upon admission and 207 today Zosyn on board IV fluids GI consult MRCP: Acute cholecystitis with stone in the cystic duct, Acute interstitial pancreatitis, Mildly dilated common duct. No choledocholithiasis, Portal vein thrombosis in posterior segment right hepatic lobe, 13 mm mass with delayed peripheral hyperenhancement in right hepatic lobe. The differential diagnosis includes abscess, hemangioma, and focal nodular hyperplasia, Hemangiomas in the lumbar spine correlating with the CT abnormalities. Two percutaneous drains have been placed with stone removal Trend labs (2) Cholecystitis: Code(s): K81.9 - Cholecystitis, unspecified Status: Deleted Assessment and Plan: MRCP shows acute cholecystitis US RUQ Cholelithiasis IV fluids GI consulted thank you General surgery consulted thank you Low fat diet Percutaneous drains placed bilaterally POD 3 of cholecystectomy Surgery to manage (3) ASHD (arteriosclerotic heart disease): Code(s): I25.10 - Atherosclerotic heart disease of [place] coronary artery without angina pectoris Status: Chronic Assessment and Plan: coronary artery disease status post CABG May 2020 cardiology has also been consulted (4) Ischemic cardiomyopathy: Code(s): I25.5 - Ischemic cardiomyopathy Status: Chronic Assessment and Plan: History of ischemic cardiomyopathy initially 20% now improved to 40 to 45% recent evaluation Current home carvedilol, furosemide, spironolactone on hold due to low blood pressure Monitor urine output (5) Hypertension: Code(s): I10 - Essential (primary) hypertension Status: Inactive Assessment and Plan: Current blood pressure 125/53 Blood pressure medication on hold for right now Trend labs Adjust medications as indicated (6) CAD (coronary artery disease): Code(s): I25.10 - Atherosclerotic heart disease of [place] coronary artery without angina pectoris Status: Inactive Assessment and Plan: Continue medications when appropriate (7) Elevated liver enzymes: Code(s): R74.8 - Abnormal levels of other serum enzymes Status: Deleted Assessment and Plan: AST ALT elevated secondary to pancreatitis Trend labs Hep panel negative RUQ shows Cholelithiasis Time Spent With Patient Time with patient: Greater than 35 minutes Subjective Date/time seen: 04/01/21 0830 Interval history: Date/Time: 01/26/22 23:10 Narrative: 66-year-old female who presents to the ED today with abdominal pain and diarrhea. She had this for several weeks but has been getting worse. The pain is in epigastric area radiates to the back. She did try Pepto-Bismol and other antacids without relief. Eating will make the pain worse. This morning she felt lightheaded and dizzy with increased abdominal pain and hence came to the ED for evaluation. No alcohol history or any abdominal surgery in the past. She has history of coronary artery disease Status post CABG and ischemic cardiomyopathy with low ejection fraction. in the ER she was noted to be hypotensive on arrival. Laboratory evaluation showed WBC count of 16,000 mildly elevated potassium 5.1 along with elevated liver enzymes with total bilirubin of 4.5 mildly elevated AST ALT but significantly elevated alkaline phosphorus 732. She also had lipase level [place] 8352. CT abdomen and pelvis was done which showed gallbladder wall thickening and pericholecystic fat stranding suggestive of acute cholecystitis along with mild peripancreatic fat stranding suggesting uncomplicated interstitial pancreatitis. In this setting she is admitted for further evaluation and management. Ge
--- NOTE | 2021-04-01 08:30 | P.PNIM_ITS ---
Progress Note: A&P Assessment and Plan (1) Acute pancreatitis: Code(s): K85.90 - Acute pancreatitis without necrosis or infection, unspecified Status: Deleted Assessment and Plan: * Lipase 8352 upon admission and 207 today * Zosyn on board * IV fluids * GI consult * MRCP: Acute cholecystitis with stone in the cystic duct, Acute interstitial pancreatitis, Mildly dilated common duct. No choledocholithiasis, Portal vein thrombosis in posterior segment right hepatic lobe, 13 mm mass with delayed peripheral hyperenhancement in right hepatic lobe. The differential diagnosis includes abscess, hemangioma, and focal nodular hyperplasia, Hemangiomas in the lumbar spine correlating with the CT abnormalities. * Two percutaneous drains have been placed with stone removal * Trend labs (2) Cholecystitis: Code(s): K81.9 - Cholecystitis, unspecified Status: Deleted Assessment and Plan: * MRCP shows acute cholecystitis * US RUQ Cholelithiasis * IV fluids * GI consulted thank you * General surgery consulted thank you * Low fat diet * Percutaneous drains placed bilaterally * POD 3 of cholecystectomy * Surgery to manage (3) ASHD (arteriosclerotic heart disease): Code(s): I25.10 - Atherosclerotic heart disease of [place] coronary artery without angina pectoris Status: Chronic Assessment and Plan: * coronary artery disease status post CABG May 2020 * cardiology has also been consulted (4) Ischemic cardiomyopathy: Code(s): I25.5 - Ischemic cardiomyopathy Status: Chronic Assessment and Plan: * History of ischemic cardiomyopathy initially 20% now improved to 40 to 45% recent evaluation * Current home carvedilol, furosemide, spironolactone on hold due to low blood pressure * Monitor urine output (5) Hypertension: Code(s): I10 - Essential (primary) hypertension Status: Inactive Assessment and Plan: * Current blood pressure 125/53 * Blood pressure medication on hold for right now * Trend labs * Adjust medications as indicated (6) CAD (coronary artery disease): Code(s): I25.10 - Atherosclerotic heart disease of [place] coronary artery without angina pectoris Status: Inactive Assessment and Plan: * Continue medications when appropriate (7) Elevated liver enzymes: Code(s): R74.8 - Abnormal levels of other serum enzymes Status: Deleted Assessment and Plan: * AST ALT elevated secondary to pancreatitis * Trend labs * Hep panel negative * RUQ shows Cholelithiasis Time Spent With Patient Time with patient: Greater than 35 minutes Subjective Date/time seen: 04/01/21 0830 Interval history: Date/Time: 03/28/21 23:10 Narrative: 66-year-old female who presents to the ED today with abdominal pain and diarrhea. She had this for several weeks but has been getting worse. The pain is in epigastric area radiates to the back. She did try Pepto-Bismol and other antacids without relief. Eating will make the pain worse. This morning she felt lightheaded and dizzy with increased abdominal pain and hence came to the ED for evaluation. No alcohol history or any abdominal surgery in the past. She has history of coronary artery disease Status post CABG and ischemic cardiomyopathy with low ejection fraction. in the ER she was noted to be hypotensive on arrival. Laboratory evaluation showed WBC count of 16,000 mildly elevated k[place]i
[2021-04-01] MEDS: ENOXAPARIN 40 MG/0.4 ML SYRINGE SUB-Q (09:20)
[2021-04-01] MEDS: ATORVASTATIN 20 MG TABLET PO (09:21)
[2021-04-01] MEDS: allopurinoL 300 MG TABLET PO (09:21)
[2021-04-01] MEDS: FUROSEMIDE 40 MG TABLET PO (09:21)
[2021-04-01] MEDS: DULoxetine HCL 60 MG CAPSULE.DR PO (09:21)
[2021-04-01] MEDS: lisinopriL 2.5 MG TABLET PO (09:22)
[2021-04-01] MEDS: SPIRONOLACTONE 50 MG TABLET PO (09:23)
[2021-04-01] MEDS: PANTOPRAZOLE 40 MG TABLET PO (09:23)
--- NOTE | 2021-04-01 09:31 | WPDGIPROGNO ---
Progress Note: A&P Additional Plan VINCE Escobar 01 Apr 2021 Wes. Denies n/v. Mauro po. VSS soft, incisional tenderness Hct 30->31. WBC 16->9. TBili 3.9->1.9->1.5, A/P 673->526->392, AST 38->19, ALT 77->49. Lipase 3082->207 (yesterday) A/P A. Gallstone pancreatitis with abnormal LFT's and abnormal imaging-biliary: - POD # 2 lap CCx - IOC with possible biliary obstruction - Labs and clinical exam improving - ABx per Surgery - ERCP 04-02-[address] Shawn Crouch Chronic blood loss anemia: no active bleed; observe. Plan reviewed with Dr. Turcios and Dr. Escobar. The procedure of ERCP, its indications, alternatives of barium studies/surgery and risks including perforation, bleeding, infection, reaction to medication as well as the possible need for blood or surgery and up to 10% risk of pancreatitis were discussed with the patient prior to the procedure. Patient voices understanding, agrees to proceed and provides informed consent. Thanks, [facility] [phone] Subjective Date/time seen: 04/01/21 09:31 Objective Data Vital Signs Vital Signs: Vital Signs - 24 hr 03/31/21 12:00 03/31/21 14:00 03/31/21 16:00 Temperature 36.0 C L Pulse Rate 93 75 86 Respiratory Rate 14 Blood Pressure 107/43 L Pulse Oximetry 100 03/31/21 20:00 03/31/21 21:00 04/01/21 00:00 Temperature 37.3 C Pulse Rate 87 75 81 Respiratory Rate 20 Blood Pressure 138/57 L Pulse Oximetry 96 04/01/21 04:11 04/01/21 05:00 Temperature 37.2 C Pulse Rate 76 95 Respiratory Rate 18 Blood Pressure 125/53 L Pulse Oximetry 93 Intake/Output Intake/Output: Intake & Output 03/29/21 03/30/21 03/31/21 04/01/21 23:59 23:59 23:59 23:59 Intake Total 3270 3300 2430 100 Output Total 1500 7 5 1620 Balance 1770 1263 365 -1520 Meds/Results Medications: Active Medications Generic Name Dose Route Start Last Admin Trade Name Freq PRN Reason Stop Dose Admin Acetaminophen 500 mg 03/30/21 14:16 03/31/21 21:47 Acetaminophen 500 Mg Tablet PO 500 mg Q6H PRN Administration Mild Pain (1-3) or Fever Hydrocodone Bitart/Acetaminophen 1 tab 03/30/21 14:16 Hydrocodone/Acetaminophen (*Crx) 5-325 Mg Tablet PO Q4H PRN Pain Rated 4-6 Allopurinol 300 mg 04/01/21 09:00 04/01/21 09:21 Allopurinol 300 Mg Tablet PO 300 mg DAILY [facility] Administration Atorvastatin Calcium 20 mg 04/01/21 09:00 04/01/21 09:21 Atorvastatin 20 Mg Tablet PO 20 mg DAILY [facility] Administration Diclofenac Sodium 75 mg 03/31/21 12:56 Diclofenac Sod 75 Mg Tablet.Ec PO BID PRN Pain 4-6 Duloxetine HCl 60 mg 04/01/21 09:00 04/01/21 09:21 Duloxetine Hcl 60 Mg Capsule.Dr PO 60 mg DAILY [facility] Administration Enoxaparin Sodium 40 mg 03/31/21 09:00 04/01/21 09:20 Enoxaparin 40 Mg/0.4 Ml Syringe SUB-Q 40 mg DAILY [facility] Administration Furosemide 40 mg 04/01/21 09:00 04/01/21 09:21 Furosemide 40 Mg Tablet PO 40 mg DAILY [facility] Administration Piperacillin/Tazobactam/Dextrose 3.375 gm in 50 mls @ 100 mls/hr 03/28/21 22:30 04/01/21 07:00 Zosyn 3.375 Gm/D5w 50ml Pm IVPB Infused Q6HR [facility] Infusion Lactated Ringer's 1,000 mls @ 60 mls/hr 03/30/21 14:16 04/01/21 07:41 Lr - Lactated Ringers Iv IV CONT 60 mls/hr .[id number] [facility] Infusion Lisinopril 2.5 mg 04/01/21 09:00 04/01/21 09:22 Lisinopril 2.5 Mg Tablet PO 2.5 mg DAILY [facility] Administration Morphine Sulfate 1 mg 03/30/21 14:16 Morphine Sulfate (*Crx) 2 Mg/Ml Inj IV PUSH Q2H PRN Pain Rated 4-6 Morphine Sulfate 2 mg 03/30/21 14:16 Morphine Sulfate (*Crx) 4 Mg/Ml Inj IV PUSH Q2H PRN Pain Rated 7-10 Morphine Sulfate 0.5 mg 03/30/21 15:01 Morphine Sulfate (*Crx) 2 Mg/Ml Inj IV PUSH Q4H PRN Severe Pain 7-10 Naloxone HCl 0.1 mg 03/30/21 14:16 Naloxone Hcl 0.4 Mg/Ml Vial IV PUSH Q2M PRN Opiate Reversal Ondansetron HCl 4 mg 03/30/21 14:16 Ondanset
[2021-04-01] MEDS: SIMETHICONE 80 MG TAB.CHEW PO (09:36)
[2021-04-01] MEDS: ACETAMINOPHEN 500 MG TABLET PO ×2 (09:36→16:30)
--- NOTE | 2021-04-01 10:50 | PM.PNGS ---
Progress Note: A&P Assessment and Plan (1) Acute suppurative cholecystitis: Code(s): K81.0 - Acute cholecystitis Status: Acute Assessment and Plan: No bile in CICI drains. Progressing appropriately. Continue low-fat diet. Ambulate. Check serial exam and labs. Continue IV antibiotics. (2) Choledocholithiasis: Code(s): K80.50 - Calculus of bile duct without cholangitis or cholecystitis without obstruction Status: Acute Assessment and Plan: Possibly may go for ERCP tomorrow per Dr. Tammy slade. (3) Acute biliary pancreatitis without infection or necrosis: Code(s): K85.10 - Biliary acute pancreatitis without necrosis or infection Status: Acute Assessment and Plan: No sign of recurrent pancreatitis. (4) Chronic HFrEF (heart failure with reduced ejection fraction): Code(s): I50.22 - Chronic systolic (congestive) heart failure Status: Chronic (5) S/P CABG x 3: Code(s): Z95.1 - Presence of aortocoronary bypass graft Status: Chronic (6) Obesity, morbid, BMI 40.0-49.9: Code(s): E66.01 - Morbid (severe) obesity due to excess calories Status: Chronic Subjective Subjective Date/Time Seen: 04/01/21 10:50 Post Op day: 2 Patient reports: no new complaints, feels better, tolerating a regular diet and no bowel movement Review of Systems Review of Systems: All systems reviewed & are unremarkable except as noted in HPI and below Constitutional: Constitutional: Denies headache(s) Cardiovascular: Cardiovascular: Denies chest pain and Denies dyspnea Respiratory: Respiratory: Denies cough and Denies dyspnea Neurologic: Denies confusion and Denies headache(s) Exam Const: General: comfortable and no acute distress; No confusion Orientation/consciousness: patient oriented x3 and No confusion GI: Inspection: non-distended, incision (Healing well, no bile in CICI drains) and obesity GI Palp: Yes Soft to palpation, Yes Tenderness to palpation present (GI) (Mostly right upper quadrant), No Guarding due to palpation present (GI), No Hernia present, No Palpable mass present and No Rebound tenderness present Neuro: General: patient oriented x3, no focal motor deficits and No confusion Extrem: General: no calf tenderness and no edema Psych: Affect: normal affect Insight: Good insight present (Psych) Judgement: Good judgement present (Psych) Objective Data Vital Signs Vital Signs: Vital Signs - 24 hr 03/31/21 12:00 03/31/21 14:00 03/31/21 16:00 Temperature 36.0 C L Pulse Rate 93 75 86 Respiratory Rate 14 Blood Pressure 107/43 L Pulse Oximetry 100 03/31/21 20:00 03/31/21 21:00 04/01/21 00:00 Temperature 37.3 C Pulse Rate 87 75 81 Respiratory Rate 20 Blood Pressure 138/57 L Pulse Oximetry 96 04/01/21 04:11 04/01/21 05:00 04/01/21 08:00 Temperature 37.2 C Pulse Rate 76 95 108 H Respiratory Rate 18 Blood Pressure 125/53 L Pulse Oximetry 93 Intake/Output Intake/Output: Intake & Output 03/29/21 03/30/21 03/31/21 04/01/21 23:59 23:59 23:59 23:59 Intake Total 3270 3300 2430 900 Output Total 1500 2037 2065 1620 Balance 1770 1263 365 -720 Meds/Results Medications: Active Medications Generic Name Dose Route Start Last Admin Trade Name Freq PRN Reason Stop Dose Admin Acetaminophen 500 mg 03/30/21 14:16 04/01/21 09:36 Acetaminophen 500 Mg Tablet PO 500 mg Q6H PRN Administration Mild Pain (1-3) or Fever Hydrocodone Bitart/Acetaminophen 1 tab 03/30/21 14:16 Hydrocodone/Acetaminophen (*Crx) 5-325 Mg Tablet PO Q4H PRN Pain Rated 4-6 Allopurinol 300 mg 04/01/21 09:00 04/01/21 09:21 Allopurinol 300 Mg Tablet PO 300 mg DAILY [facility] Administration Atorvastatin Calcium 20 mg 04/01/21 09:00 04/01/21 09:21 Atorvastatin 20 Mg Tablet PO 20 mg DAILY [facility] Administration Carvedilol 12.5 mg 04/01/21 17:00 Carvedilol 12.5 Mg Tablet PO BID
[2021-04-01] MEDS: carvediloL 12.5 MG TABLET PO (16:30)
--- NOTE | 2021-04-01 17:12 | WPDANESPN ---
Anes - Prog Note Post-Op Date/Time: 04/01/21 17:12 Cardiovascular status: other (anemic) Respiratory status: normal Airway patency: baseline Mental status: baseline Post-Op hydration status: normal Vital Signs: Last Vital Signs Temp 35.9 C L 04/01/21 16:01 Pulse 78 04/01/21 16:30 Resp 14 04/01/21 16:01 BP 135/43 L 04/01/21 16:01 Pulse Ox 100 04/01/21 16:01 Pain Score (VAS): 03/12 I/O: Intake & Output 04/01/21 04/01/21 04/01/21 07:59 15:59 23:59 Intake Total 100 850 Output Total 1620 1710 Balance -1520 850 -1710 Laboratory Tests 04/01/21 06:11 04/01/21 06:11 04/01/21 04/01/21 06:11 06:11 WBC 9.4 RBC 3.33 L Hgb 9.2 L Hct 30.6 L MCV 91.9 MCH 27.6 MCHC 30.1 L RDW 15.9 H Plt Count 250 MPV 9.3 Sodium 133 L Potassium 4.0 Chloride 105 Carbon Dioxide 26 Anion Gap 2 L BUN 8 D Creatinine 0.70 Estim Creat Clear Calc 104 Estimated GFR > 60 Glucose 114 H Calcium 8.4 Total Bilirubin 1.5 H AST 19 ALT 49 H Alkaline Phosphatase 392 H Total Protein 6.0 L Albumin 3.0 L Post-procedural complaints: none and other (per floor RN report) Patient Feedback: Patient satisfied with anesthetic care.
[2021-04-02] VITALS (12 sets, daily range): BP systolic 100–163; BP diastolic 46–79; PULSE 61–96; RESP 17–20; TEMP 35.9–36.7; O2SAT 95–100
[2021-04-02 06:14] LABS: Basophils Absolute Auto 0.1 K/mm3 (0.0-0.1); Basophils Percent Auto 0.9 % (0.2-1.2); Eosinophils Absolute Auto 0.1 K/mm3 (0-0.3); Eosinophils Percent Auto 1.6 % (0-4.4); Hematocrit 27.1 % (37.0-47.0); Hemoglobin 8.1 g/dL (12.0-15.0); Immature Granulocyte Absolute 0.06 K/mm3 (0.00-0.031); Immature Granulocyte Percent A 0.7 % (0-0.5); Lymphocytes Absolute Auto 0.94 K/mm3 (0.9-3.2); Lymphocytes Percent Auto 11.7 % (18.3-44.2); Mean Corpuscular HGB Conc 29.9 g/dl (32-36); Mean Corpuscular Hemoglobin 27.5 pg (26-34); Mean Corpuscular Volume 91.9 fl (80-100); Mean Platelet Volume 9.2 fl (7.4-10.4); Monocytes Absolute Auto 0.7 K/mm3 (0.1-0.6); Monocytes Percent Auto 8.6 % (2.6-8.5); Neutrophils Absolute Auto 6.1 K/mm3 (1.3-6.7); Neutrophils Percent Auto 76.5 % (45.5-73.1); Platelet Count Result 214 k/mm3 (150-375); Red Blood Count 2.95 M/mm3 (4.2-5.4); Red Cell Distribution Width 15.7 % (11.5-14.5)
[2021-04-02 06:27] LABS: Alanine Aminotransferase 34 U/L (4-35); Albumin Level 2.7 g/dL (3.5-5.1); Alkaline Phosphatase 317 U/L (38-126); Anion Gap 0 mmol/L (8-16); Aspartate Amino Transferase 13 U/L (14-36); Bilirubin,Total 1.2 mg/dL (0.2-1.3); Blood Urea Nitrogen 6 mg/dL (7-17); Calcium 8.4 mg/dL (8.4-10.2); Carbon Dioxide 30 mmol/L (22-30); Chloride 101 mmol/L (98-107); Estimated CRCL calculation 120 ml/min; Estimated Glomerular Filt Rate > 60; Glucose 104 mg/dL (65-110); Magnesium 1.7 mg/dL (1.6-2.3); Potassium 3.8 mmol/L (3.4-5.0); Sodium 131 mmol/L (137-145)
--- NOTE | 2021-04-02 11:33 | WPDANESEFPP ---
Anes - Eval Final PreProcedure Day of Procedure 04/02/21 11:33 Patient weight: morbidly obese Heart: regular rate and rhythm Lungs: clear to auscultation Airway: Mallampati scale class II Neurological: alert and oriented Last oral intake: >/= 8 hours ASA classification: III Anesthetic plan: proceed Anesthesia type and monitoring: general ETT and standard monitoring Results Review: All pre-operative results and documents have been reviewed as part of the pre-operative evaluation. Informed Consent: The patient's anesthetic plan and its attendant risks and benefits were discussed with the patient/family/POA. Questions were solicited and answers provided to the satisfaction of the patient/family/POA.
[2021-04-02] MEDS: LACTATED RINGERS 1,000 ML 150 ML IV CONT (11:44)
--- NOTE | 2021-04-02 12:21 | PM.PNGS ---
Progress Note: A&P Assessment and Plan (1) Acute suppurative cholecystitis: Code(s): K81.0 - Acute cholecystitis Status: Acute Assessment and Plan: doing well now 3 days status post laparoscopic cholecystectomy. Probably will remove CICI drains tomorrow. Continue IV antibiotics. Home either late in the day tomorrow or Friday. (2) Choledocholithiasis: Code(s): K80.50 - Calculus of bile duct without cholangitis or cholecystitis without obstruction Status: Acute Assessment and Plan: Patient on the schedule for ERCP today. Liver enzymes have been decreasing. (3) Acute biliary pancreatitis without infection or necrosis: Code(s): K85.10 - Biliary acute pancreatitis without necrosis or infection Status: Acute Assessment and Plan: Resolved. Subjective Subjective Date/Time Seen: 04/02/21 12:21 Post Op day: 3 Patient reports: no new complaints, pain is less, afebrile and other ( Poor appetite, does not like the food) Exam Const: General: comfortable and no acute distress; No confusion Orientation/consciousness: patient oriented x3 and No confusion GI: Inspection: non-distended, incision ( dry and healing well, serous fluid in CICI drains) and obesity GI Palp: Yes Soft to palpation, Yes Tenderness to palpation present (GI) ( appropriate postoperative tenderness), No Guarding due to palpation present (GI) and No Rebound tenderness present Auscultation: normal bowel sounds Objective Data Vital Signs Vital Signs: Vital Signs - 24 hr 04/01/21 16:01 04/01/21 16:30 04/01/21 20:43 Temperature 35.9 C L 36.3 C L Pulse Rate 78 78 65 Respiratory Rate 14 18 Blood Pressure 135/43 L 106/48 L Pulse Oximetry 100 98 04/01/21 21:20 04/02/21 05:18 04/02/21 11:39 Temperature 36.2 C L 35.9 C L Pulse Rate 75 70 Respiratory Rate 18 18 20 Blood Pressure 121/46 L 130/50 L Pulse Oximetry 98 97 99 Intake/Output Intake/Output: Intake & Output 03/30/21 03/31/21 04/01/21 04/02/21 23:59 23:59 23:59 23:59 Intake Total 3300 2430 1390 250 Output Total 2036 2064 3330 558 Balance 1263 365 -1940 -308 Meds/Results Medications: Active Medications Generic Name Dose Route Start Last Admin Trade Name Freq PRN Reason Stop Dose Admin Acetaminophen 500 mg 03/30/21 14:16 04/01/21 16:30 Acetaminophen 500 Mg Tablet PO 500 mg Q6H PRN Administration Mild Pain (1-3) or Fever Hydrocodone Bitart/Acetaminophen 1 tab 03/30/21 14:16 Hydrocodone/Acetaminophen (*Crx) 5-325 Mg Tablet PO Q4H PRN Pain Rated 4-6 Allopurinol 300 mg 04/01/21 09:00 04/02/21 09:12 Allopurinol 300 Mg Tablet PO Not Given DAILY [facility] Atorvastatin Calcium 20 mg 04/01/21 09:00 04/02/21 09:12 Atorvastatin 20 Mg Tablet PO Not Given DAILY [facility] Carvedilol 12.5 mg 04/01/21 17:00 04/02/21 09:12 Carvedilol 12.5 Mg Tablet PO Not Given BID [facility] Diclofenac Sodium 75 mg 03/31/21 12:56 Diclofenac Sod 75 Mg Tablet.Ec PO BID PRN Pain 4-6 Duloxetine HCl 60 mg 04/01/21 09:00 04/02/21 09:12 Duloxetine Hcl 60 Mg Capsule.Dr PO Not Given DAILY [facility] Enoxaparin Sodium 40 mg 03/31/21 09:00 04/02/21 09:13 Enoxaparin 40 Mg/0.4 Ml Syringe SUB-Q Not Given DAILY [facility] Furosemide 40 mg 04/01/21 09:00 04/02/21 09:13 Furosemide 40 Mg Tablet PO Not Given DAILY [facility] Piperacillin/Tazobactam/Dextrose 3.375 gm in 50 mls @ 100 mls/hr 03/28/21 22:30 04/02/21 06:10 Zosyn 3.375 Gm/D5w 50ml Pm IVPB Infused Q6HR [place] Infusion Lactated Ringer's 1,000 mls @ 150 mls/hr 04/02/21 11:45 04/02/21 11:44 Lr - Lactated Ringers Iv IV CONT 150 mls/hr .Q6H40M [place] Administration Lisinopril 2.5 mg 04/01/21 09:00 04/02/21 09:13 Lisinopril 2.5 Mg Tablet PO Not Given DAILY [facility] Morphine Sulfate 1 mg 03/30/21 14:16 Morphine Sulfate (*Crx) 2 Mg/Ml Inj IV PUSH Q2H PRN Pain Rated 4-6 Morphine Sulfate 2 mg
--- NOTE | 2021-04-02 13:41 | P.PNIM_ITS ---
Progress Note: A&P Assessment and Plan (1) Acute pancreatitis: Code(s): K85.90 - Acute pancreatitis without necrosis or infection, unspecified Status: Deleted Assessment and Plan: * Lipase 8352 upon admission and 207 today * Zosyn on board * IV fluids * GI consult * MRCP: Acute cholecystitis with stone in the cystic duct, Acute interstitial pancreatitis, Mildly dilated common duct. No choledocholithiasis, Portal vein thrombosis in posterior segment right hepatic lobe, 13 mm mass with delayed peripheral hyperenhancement in right hepatic lobe. The differential diagnosis includes abscess, hemangioma, and focal nodular hyperplasia, Hemangiomas in the lumbar spine correlating with the CT abnormalities. * ERCP performed sphincterotomy, no stones noted * Two percutaneous drains have been placed with stone removal * Trend labs (2) Cholecystitis: Code(s): K81.9 - Cholecystitis, unspecified Status: Deleted Assessment and Plan: * MRCP shows acute cholecystitis * US RUQ Cholelithiasis * IV fluids * GI consulted thank you * General surgery consulted thank you * Low fat diet * Percutaneous drains placed bilaterally * POD 4 of cholecystectomy * Surgery to manage (3) ASHD (arteriosclerotic heart disease): Code(s): I25.10 - Atherosclerotic heart disease of [place] coronary artery without angina pectoris Status: Chronic Assessment and Plan: * coronary artery disease status post CABG May 2020 * cardiology has also been consulted (4) Ischemic cardiomyopathy: Code(s): I25.5 - Ischemic cardiomyopathy Status: Chronic Assessment and Plan: * History of ischemic cardiomyopathy initially 20% now improved to 40 to 45% recent evaluation * Current home carvedilol, furosemide, spironolactone on hold due to low blood pressure * Monitor urine output (5) Hypertension: Code(s): I10 - Essential (primary) hypertension Status: Inactive Assessment and Plan: * Current blood pressure 163/75 * Blood pressure medication on hold for right now * Trend labs * Adjust medications as indicated (6) CAD (coronary artery disease): Code(s): I25.10 - Atherosclerotic heart disease of [place] coronary artery without angina pectoris Status: Inactive Assessment and Plan: * Continue medications when appropriate (7) Elevated liver enzymes: Code(s): R74.8 - Abnormal levels of other serum enzymes Status: Deleted Assessment and Plan: * AST ALT elevated secondary to pancreatitis * Trend labs * Hep panel negative * RUQ shows Cholelithiasis Time Spent With Patient Time with patient: Greater than 35 minutes Subjective Date/time seen: 04/02/21 1345 Interval history: Date/Time: 03/28/21 23:10 Narrative: 66-year-old female who presents to the ED today with abdominal pain and diarrhea. She had this for several weeks but has been getting worse. The pain is in epigastric area radiates to the back. She did try Pepto-Bismol and other antacids without relief. Eating will make the pain worse. This morning she felt lightheaded and dizzy with increased abdominal pain and hence came to the ED for evaluation. No alcohol history or any abdominal surgery in the past. She has history of coronary artery disease Status post CABG and ischemic cardiomyopathy with low ejection fraction. in the ER she was noted to be hypotensive on arrival. Laboratory evaluatio
--- NOTE | 2021-04-02 13:41 | PM.IMPN ---
Progress Note: A&P Assessment and Plan (1) Acute pancreatitis: Code(s): K85.90 - Acute pancreatitis without necrosis or infection, unspecified Status: Deleted Assessment and Plan: Lipase 8352 upon admission and 207 today Zosyn on board IV fluids GI consult MRCP: Acute cholecystitis with stone in the cystic duct, Acute interstitial pancreatitis, Mildly dilated common duct. No choledocholithiasis, Portal vein thrombosis in posterior segment right hepatic lobe, 13 mm mass with delayed peripheral hyperenhancement in right hepatic lobe. The differential diagnosis includes abscess, hemangioma, and focal nodular hyperplasia, Hemangiomas in the lumbar spine correlating with the CT abnormalities. ERCP performed sphincterotomy, no stones noted Two percutaneous drains have been placed with stone removal Trend labs (2) Cholecystitis: Code(s): K81.9 - Cholecystitis, unspecified Status: Deleted Assessment and Plan: MRCP shows acute cholecystitis US RUQ Cholelithiasis IV fluids GI consulted thank you General surgery consulted thank you Low fat diet Percutaneous drains placed bilaterally POD 4 of cholecystectomy Surgery to manage (3) ASHD (arteriosclerotic heart disease): Code(s): I25.10 - Atherosclerotic heart disease of [place] coronary artery without angina pectoris Status: Chronic Assessment and Plan: coronary artery disease status post CABG May 2020 cardiology has also been consulted (4) Ischemic cardiomyopathy: Code(s): I25.5 - Ischemic cardiomyopathy Status: Chronic Assessment and Plan: History of ischemic cardiomyopathy initially 20% now improved to 40 to 45% recent evaluation Current home carvedilol, furosemide, spironolactone on hold due to low blood pressure Monitor urine output (5) Hypertension: Code(s): I10 - Essential (primary) hypertension Status: Inactive Assessment and Plan: Current blood pressure 163/75 Blood pressure medication on hold for right now Trend labs Adjust medications as indicated (6) CAD (coronary artery disease): Code(s): I25.10 - Atherosclerotic heart disease of [place] coronary artery without angina pectoris Status: Inactive Assessment and Plan: Continue medications when appropriate (7) Elevated liver enzymes: Code(s): R74.8 - Abnormal levels of other serum enzymes Status: Deleted Assessment and Plan: AST ALT elevated secondary to pancreatitis Trend labs Hep panel negative RUQ shows Cholelithiasis Time Spent With Patient Time with patient: Greater than 35 minutes Subjective Date/time seen: 04/02/21 1345 Interval history: Date/Time: 03/28/21 23:10 Narrative: 66-year-old female who presents to the ED today with abdominal pain and diarrhea. She had this for several weeks but has been getting worse. The pain is in epigastric area radiates to the back. She did try Pepto-Bismol and other antacids without relief. Eating will make the pain worse. This morning she felt lightheaded and dizzy with increased abdominal pain and hence came to the ED for evaluation. No alcohol history or any abdominal surgery in the past. She has history of coronary artery disease Status post CABG and ischemic cardiomyopathy with low ejection fraction. in the ER she was noted to be hypotensive on arrival. Laboratory evaluation showed WBC count of 16,000 mildly elevated potassium 5.1 along with elevated liver enzymes with total bilirubin of 4.5 mildly elevated AST ALT but significantly elevated alkaline phosphorus 732. She also had lipase level elevated [place] 8352. CT abdomen and pelvis was done which showed gallbladder wall thickening and pericholecystic fat stranding suggestive of acute cholecystitis along with mild peripancreatic fat stranding suggesting uncomplicated interstitial pancreatitis. In this setting she is a
[2021-04-02] MEDS: carvediloL 12.5 MG TABLET PO (18:54)
[2021-04-03 05:15] VITALS: BP 130/58; PULSE 73; RESP 16; TEMP 36.1; O2SAT 95
[2021-04-03 06:02] LABS: Alanine Aminotransferase 30 U/L (4-35); Albumin Level 3.1 g/dL (3.5-5.1); Alkaline Phosphatase 286 U/L (38-126); Anion Gap 3 mmol/L (8-16); Aspartate Amino Transferase 12 U/L (14-36); Blood Urea Nitrogen 7 mg/dL (7-17); Calcium 8.6 mg/dL (8.4-10.2); Carbon Dioxide 30 mmol/L (22-30); Chloride 103 mmol/L (98-107); Estimated CRCL calculation 120 ml/min; Estimated Glomerular Filt Rate > 60; Glucose 120 mg/dL (65-110); Magnesium 1.9 mg/dL (1.6-2.3); Potassium 3.7 mmol/L (3.4-5.0); Sodium 136 mmol/L (137-145)
[2021-04-03 06:11] LABS: Basophils Absolute Auto 0.1 K/mm3 (0.0-0.1); Basophils Percent Auto 1.1 % (0.2-1.2); Eosinophils Absolute Auto 0.2 K/mm3 (0-0.3); Eosinophils Percent Auto 2.5 % (0-4.4); Hematocrit 31.5 % (37.0-47.0); Hemoglobin 9.3 g/dL (12.0-15.0); Immature Granulocyte Absolute 0.04 K/mm3 (0.00-0.031); Immature Granulocyte Percent A 0.6 % (0-0.5); Lymphocytes Absolute Auto 1.17 K/mm3 (0.9-3.2); Lymphocytes Percent Auto 18.1 % (18.3-44.2); Mean Corpuscular HGB Conc 29.5 g/dl (32-36); Mean Corpuscular Hemoglobin 27.7 pg (26-34); Mean Corpuscular Volume 93.8 fl (80-100); Mean Platelet Volume 9.5 fl (7.4-10.4); Monocytes Absolute Auto 0.7 K/mm3 (0.1-0.6); Monocytes Percent Auto 10.5 % (2.6-8.5); Neutrophils Absolute Auto 4.3 K/mm3 (1.3-6.7); Neutrophils Percent Auto 67.2 % (45.5-73.1); Platelet Count Result 238 k/mm3 (150-375); Red Blood Count 3.36 M/mm3 (4.2-5.4); Red Cell Distribution Width 15.5 % (11.5-14.5); White Blood Count 6.5 K/mm3 (4.5-10.0)
--- NOTE | 2021-04-03 07:10 | PM.PNGS ---
Progress Note: A&P Assessment and Plan (1) Acute suppurative cholecystitis: Code(s): K81.0 - Acute cholecystitis Status: Acute Assessment and Plan: doing well. Okay to discharge from my perspective. Should go home on another 3 days of Augmentin oral antibiotics. I will see her in 2 weeks. We will DC CICI drains prior to discharge. Discharge instructions written. (2) Choledocholithiasis: Code(s): K80.50 - Calculus of bile duct without cholangitis or cholecystitis without obstruction Status: Acute Assessment and Plan: Doing well after ERCP with stone removal and sphincterotomy yesterday. (3) Acute biliary pancreatitis without infection or necrosis: Code(s): K85.10 - Biliary acute pancreatitis without necrosis or infection Status: Resolved Subjective Subjective Date/Time Seen: 04/03/21 07:10 Post Op day: 4 Patient reports: no new complaints, feels better, pain is less and afebrile Interval history: No problems through the night after ERCP yesterday. Would like to go home today. Review of Systems Review of Systems: All systems reviewed & are unremarkable except as noted in HPI and below Constitutional: Constitutional: Denies headache(s) Cardiovascular: Cardiovascular: Denies chest pain and Denies dyspnea Respiratory: Respiratory: Denies cough and Denies dyspnea Gastrointestinal: Gastrointestinal: Reports as per HPI, Denies abdominal pain, Denies heartburn, Denies nausea and Denies vomiting Exam Const: General: comfortable and no acute distress; No confusion Orientation/consciousness: patient oriented x3 and No confusion GI: Inspection: incision ( Serous fluid in CICI drains, incisions dry and look good) and obesity GI Palp: Yes Soft to palpation, No Guarding due to palpation present (GI) and No Rebound tenderness present Auscultation: normal bowel sounds Neuro: General: patient oriented x3, no focal motor deficits and No confusion Extrem: General: no calf tenderness and no edema Psych: Affect: normal affect Insight: Good insight present (Psych) Judgement: Good judgement present (Psych) Objective Data Vital Signs Vital Signs: Vital Signs - 24 hr 04/02/21 11:39 04/02/21 13:30 04/02/21 13:40 Temperature 35.9 C L 36.7 C Pulse Rate 70 70 68 Respiratory Rate 20 20 17 Blood Pressure 130/50 L 163/75 H 150/79 H Pulse Oximetry 99 100 99 04/02/21 13:50 04/02/21 14:00 04/02/21 14:10 Temperature 36.4 C L Pulse Rate 70 65 72 Respiratory Rate 18 18 17 Blood Pressure 150/79 H 128/63 134/57 L Pulse Oximetry 98 95 97 04/02/21 14:20 04/02/21 14:30 04/02/21 16:46 Temperature 36.7 C 36.7 C Pulse Rate 71 76 96 Respiratory Rate 18 20 20 Blood Pressure 131/55 L 132/55 L 140/67 Pulse Oximetry 96 97 97 04/02/21 20:36 04/02/21 21:42 04/03/21 05:15 Temperature 36.2 C L 36.1 C L Pulse Rate 61 73 Respiratory Rate 18 18 16 Blood Pressure 100/50 L 130/58 L Pulse Oximetry 98 98 95 Intake/Output Intake/Output: Intake & Output 03/31/21 04/01/21 04/02/21 04/03/21 23:59 23:59 23:59 23:59 Intake Total 2430 1390 710 460 Output Total 4035 8987 7047 421 Balance 365 -1940 -808 -160 Meds/Results Medications: Active Medications Generic Name Dose Route Start Last Admin Trade Name Freq PRN Reason Stop Dose Admin Acetaminophen 500 mg 03/30/21 14:16 04/01/21 16:30 Acetaminophen 500 Mg Tablet PO 500 mg Q6H PRN Administration Mild Pain (1-3) or Fever Hydrocodone Bitart/Acetaminophen 1 tab 03/30/21 14:16 Hydrocodone/Acetaminophen (*Crx) 5-325 Mg Tablet PO Q4H PRN Pain Rated 4-6 Allopurinol 300 mg 04/01/21 09:00 04/02/21 09:12 Allopurinol 300 Mg Tablet PO Not Given DAILY [facility] Atorvastatin Calcium 20 mg 04/01/21 09:00 04/02/21 09:12 Atorvastatin 20 Mg Tablet PO Not Given DAILY [facility] Carvedilol 12.5 mg 04/01/21 17:00 04/02/21 18:54 Carvedilol 12.5 Mg Tablet PO 12.5 mg BID [place] Administ
[2021-04-03] MEDS: carvediloL 12.5 MG TABLET PO (09:30)
[2021-04-03] MEDS: lisinopriL 2.5 MG TABLET PO (09:30)
[2021-04-03] MEDS: PANTOPRAZOLE 40 MG TABLET PO (09:31)
[2021-04-03] MEDS: DULoxetine HCL 60 MG CAPSULE.DR PO (09:31)
[2021-04-03] MEDS: allopurinoL 300 MG TABLET PO (09:31)
[2021-04-03] MEDS: ENOXAPARIN 40 MG/0.4 ML SYRINGE SUB-Q (09:31)
[2021-04-03] MEDS: SPIRONOLACTONE 50 MG TABLET PO (09:31)
[2021-04-03] MEDS: FUROSEMIDE 40 MG TABLET PO (09:31)
[2021-04-03] MEDS: ATORVASTATIN 20 MG TABLET PO (09:31)
--- NOTE | 2021-04-03 09:45 | WPDGIPROGNO ---
Progress Note: A&P Assessment and Plan (1) Acute suppurative cholecystitis: Code(s): K81.0 - Acute cholecystitis Status: Acute Assessment and Plan: Patient is status post cholecystectomy with purulence cholecystitis. Status post surgery on Friday. Underwent ERCP yesterday with clearance of the common duct no stones retrieved removed at that time. Sphincterotomy was performed. Okay with me for discharge to complete antibiotics per surgical service. Follow-up with surgery as scheduled. (2) Acute biliary pancreatitis without infection or necrosis: Code(s): K85.10 - Biliary acute pancreatitis without necrosis or infection Status: Resolved Assessment and Plan: Pancreatitis likely from passed common duct stone. This appears resolved at this time. No additional management anticipated. (3) ASHD (arteriosclerotic heart disease): Code(s): I25.10 - Atherosclerotic heart disease of [place] coronary artery without angina pectoris Status: Chronic Subjective Date/time seen: 04/03/21 09:45 Patient alert comfortable this morning. Tolerating diet without activity. Denies abdominal pain. Starting to have bowel movements. Had ERCP and sphincterotomy yesterday. Status post cholecystectomy Friday. Review of Systems Review of Systems: All systems reviewed & are unremarkable except as noted in HPI and below Exam Narrative: Physical exam reveals patient be alert. Vital signs stable. HEENT exam is unremarkable. Patient is anicteric. Lungs are clear heart is without murmur. Abdomen is obese bowel sounds present soft nontende. Incisions are healing. Objective Data Vital Signs Vital Signs: Vital Signs - 24 hr 04/02/21 11:39 04/02/21 13:30 04/02/21 13:40 Temperature 96.6 F L 98.1 F Pulse Rate 70 70 68 Respiratory Rate 20 20 17 Blood Pressure 130/50 L 163/75 H 150/79 H Pulse Oximetry 99 100 99 04/02/21 13:50 04/02/21 14:00 04/02/21 14:10 Temperature 97.5 F L Pulse Rate 70 65 72 Respiratory Rate 18 18 17 Blood Pressure 150/79 H 128/63 134/57 L Pulse Oximetry 98 95 97 04/02/21 14:20 04/02/21 14:30 04/02/21 16:46 Temperature 98.1 F 98.0 F Pulse Rate 71 76 96 Respiratory Rate 18 20 20 Blood Pressure 131/55 L 132/55 L 140/67 Pulse Oximetry 96 97 97 04/02/21 20:36 04/02/21 21:42 04/03/21 05:15 Temperature 97.1 F L 97 F L Pulse Rate 61 73 Respiratory Rate 18 18 16 Blood Pressure 100/50 L 130/58 L Pulse Oximetry 98 98 95 Intake/Output Intake/Output: Intake & Output 03/31/21 04/01/21 04/02/21 04/03/21 23:59 23:59 23:59 23:59 Intake Total 2430 1390 710 700 Output Total 2064 2320 1516 620 Balance 079 -9562 -321 80 Meds/Results Medications: Active Medications Generic Name Dose Route Start Last Admin Trade Name Freq PRN Reason Stop Dose Admin Acetaminophen 500 mg 03/30/21 14:16 04/01/21 16:30 Acetaminophen 500 Mg Tablet PO 500 mg Q6H PRN Administration Mild Pain (1-3) or Fever Hydrocodone Bitart/Acetaminophen 1 tab 03/30/21 14:16 Hydrocodone/Acetaminophen (*Crx) 5-325 Mg Tablet PO Q4H PRN Pain Rated 4-6 Allopurinol 300 mg 04/01/21 09:00 04/03/21 09:31 Allopurinol 300 Mg Tablet PO 300 mg DAILY [place] Administration Atorvastatin Calcium 20 mg 04/01/21 09:00 04/03/21 09:31 Atorvastatin 20 Mg Tablet PO 20 mg DAILY [place] Administration Carvedilol 12.5 mg 04/01/21 17:00 04/03/21 09:30 Carvedilol 12.5 Mg Tablet PO 12.5 mg BID [place] Administration Diclofenac Sodium 75 mg 03/31/21 12:56 Diclofenac Sod 75 Mg Tablet.Ec PO BID PRN Pain 4-6 Duloxetine HCl 60 mg 04/01/21 09:00 04/03/21 09:31 Duloxetine Hcl 60 Mg Capsule.Dr PO 60 mg DAILY [place] Administration Enoxaparin Sodium 40 mg 03/31/21 09:00 04/03/21 09:31 Enoxaparin 40 Mg/0.4 Ml Syringe SUB-Q 40 mg DAILY [place] Administration Furosemide 40 mg 04/01/21 09:00 04/03/21 09:31 Furosemide 40 Mg Tablet P
--- NOTE | 2021-04-03 12:20 | P.DS_ITS ---
DS: Admitting Diagnosis Discharge Date 04/03/21 1230 Admitting Diagnosis Acute cholecystitis DS: Discharge Diagnosis Discharge Diagnosis (1) Acute pancreatitis: Code(s): K85.90 - Acute pancreatitis without necrosis or infection, unspecified Status: Deleted Assessment and Plan: * Lipase 8352 upon admission and 207 today * Zosyn on board * IV fluids * GI consult * MRCP: Acute cholecystitis with stone in the cystic duct, Acute interstitial pancreatitis, Mildly dilated common duct. No choledocholithiasis, Portal vein thrombosis in posterior segment right hepatic lobe, 13 mm mass with delayed peripheral hyperenhancement in right hepatic lobe. The differential diagnosis includes abscess, hemangioma, and focal nodular hyperplasia, Hemangiomas in the lumbar spine correlating with the CT abnormalities. * ERCP performed sphincterotomy, no stones noted * Two percutaneous drains have been placed with stone removal * Trend labs (2) Cholecystitis: Code(s): K81.9 - Cholecystitis, unspecified Status: Deleted Assessment and Plan: * MRCP shows acute cholecystitis * US RUQ Cholelithiasis * IV fluids * GI consulted thank you * General surgery consulted thank you * Low fat diet * Percutaneous drains placed bilaterally * POD 5 of cholecystectomy * Surgery to manage (3) ASHD (arteriosclerotic heart disease): Code(s): I25.10 - Atherosclerotic heart disease of [place] coronary artery without angina pectoris Status: Chronic Assessment and Plan: * coronary artery disease status post CABG May 2020 * cardiology has also been consulted (4) Ischemic cardiomyopathy: Code(s): I25.5 - Ischemic cardiomyopathy Status: Chronic Assessment and Plan: * History of ischemic cardiomyopathy initially 20% now improved to 40 to 45% recent evaluation * Current home carvedilol, furosemide, spironolactone on hold due to low blood pressure * Monitor urine output (5) Hypertension: Code(s): I10 - Essential (primary) hypertension Status: Inactive Assessment and Plan: * Current blood pressure 130/58 * Blood pressure medication on hold for right now * Trend labs * Adjust medications as indicated (6) CAD (coronary artery disease): Code(s): I25.10 - Atherosclerotic heart disease of [place] coronary artery without angina pectoris Status: Inactive Assessment and Plan: * Continue medications when appropriate (7) Elevated liver enzymes: Code(s): R74.8 - Abnormal levels of other serum enzymes Status: Deleted Assessment and Plan: * AST ALT elevated secondary to pancreatitis * Trend labs * Hep panel negative * RUQ shows Cholelithiasis DS: Summary Hospital Course Hospital Course: Patient is a 66-year-old female with a past medical history of CABG, ischemic cardiomyopathy, hypertension who presented the ED for abdominal pain and diarrhea for the last few weeks prior to admission. upon admission patient was found to have an elevated white count and potassium. CT of the abdomen and pelvis showed gallbladder wall thickening and pericholecystitis fat stranding. Lipase was elevated to 8000. Patient was started on IV fluids and IV Zosyn. GI was consulted MRCP PE was performed that showed acute cholecystitis with stone in cystic duct. It also showed acute pancreatitis. General surgery was consulted patient was taken to the operating room for ac
--- NOTE | 2021-04-03 12:20 | PM.DS ---
DS: Admitting Diagnosis Discharge Date 04/03/21 1230 Admitting Diagnosis Acute cholecystitis DS: Discharge Diagnosis Discharge Diagnosis (1) Acute pancreatitis: Code(s): K85.90 - Acute pancreatitis without necrosis or infection, unspecified Status: Deleted Assessment and Plan: Lipase 8352 upon admission and 207 today Zosyn on board IV fluids GI consult MRCP: Acute cholecystitis with stone in the cystic duct, Acute interstitial pancreatitis, Mildly dilated common duct. No choledocholithiasis, Portal vein thrombosis in posterior segment right hepatic lobe, 13 mm mass with delayed peripheral hyperenhancement in right hepatic lobe. The differential diagnosis includes abscess, hemangioma, and focal nodular hyperplasia, Hemangiomas in the lumbar spine correlating with the CT abnormalities. ERCP performed sphincterotomy, no stones noted Two percutaneous drains have been placed with stone removal Trend labs (2) Cholecystitis: Code(s): K81.9 - Cholecystitis, unspecified Status: Deleted Assessment and Plan: MRCP shows acute cholecystitis US RUQ Cholelithiasis IV fluids GI consulted thank you General surgery consulted thank you Low fat diet Percutaneous drains placed bilaterally POD 5 of cholecystectomy Surgery to manage (3) ASHD (arteriosclerotic heart disease): Code(s): I25.10 - Atherosclerotic heart disease of [place] coronary artery without angina pectoris Status: Chronic Assessment and Plan: coronary artery disease status post CABG May 2020 cardiology has also been consulted (4) Ischemic cardiomyopathy: Code(s): I25.5 - Ischemic cardiomyopathy Status: Chronic Assessment and Plan: History of ischemic cardiomyopathy initially 20% now improved to 40 to 45% recent evaluation Current home carvedilol, furosemide, spironolactone on hold due to low blood pressure Monitor urine output (5) Hypertension: Code(s): I10 - Essential (primary) hypertension Status: Inactive Assessment and Plan: Current blood pressure 130/58 Blood pressure medication on hold for right now Trend labs Adjust medications as indicated (6) CAD (coronary artery disease): Code(s): I25.10 - Atherosclerotic heart disease of [place] coronary artery without angina pectoris Status: Inactive Assessment and Plan: Continue medications when appropriate (7) Elevated liver enzymes: Code(s): R74.8 - Abnormal levels of other serum enzymes Status: Deleted Assessment and Plan: AST ALT elevated secondary to pancreatitis Trend labs Hep panel negative RUQ shows Cholelithiasis DS: Summary Hospital Course Hospital Course: Patient is a 66-year-old female with a past medical history of CABG, ischemic cardiomyopathy, hypertension who presented the ED for abdominal pain and diarrhea for the last few weeks prior to admission. upon admission patient was found to have an elevated white count and potassium. CT of the abdomen and pelvis showed gallbladder wall thickening and pericholecystitis fat stranding. Lipase was elevated to 8000. Patient was started on IV fluids and IV Zosyn. GI was consulted MRCP PE was performed that showed acute cholecystitis with stone in cystic duct. It also showed acute pancreatitis. General surgery was consulted patient was taken to the operating room for acute cholecystectomy. Upon return patient was having nausea vomiting along with abdominal pain. Throughout the surgery the patient was also noted to have stones present. ERCP was then performed by GI which a Sphincterotomy was done and no further stones were found. Patient is postop day 5 and diet has been advanced as tolerated. Blood pressure has noted to be a little bit elevated however patient was started on hold her meds and has came down to a normal level at this time. AST and ALT were also eleva
== END 2021-04-03 13:43 | disposition home or self-care (01) | DRG 417 ==
LOC: ANHED 17:28 → ANH3MED 03-29 12:19
PROVIDERS: Internal Medicine Gastroenterology; Nurse Practitioner Family; Surgery; Admitting Provider Internal Medicine; Emergency Provider Emergency Medicine; PCP Family Medicine Adolescent Medicine; Visit Provider Nurse Practitioner
PROC: 0FT44ZZ Resection of Gallbladder, Percutaneous Endoscopic Approach (ICD-10-PCS; CPT 47562; principal; 2021-03-30 09:30)
PROC: 0FC88ZZ Extirpation of Matter from Cystic Duct, Via Natural or Artificial Opening Endoscopic (ICD-10-PCS; CPT 43260; principal; 2021-04-02 14:30)
DX: K85.10 Biliary acute pancreatitis without necrosis or infection (principal); I81 Portal vein thrombosis; Z68.41 Body mass index [BMI] 40.0-44.9, adult; I50.22 Chronic systolic (congestive) heart failure; K80.01 Calculus of gallbladder with acute cholecystitis with obstruction; I25.10 Atherosclerotic heart disease of native coronary artery without angina pectoris; I25.5 Ischemic cardiomyopathy; Z79.82 Long term (current) use of aspirin; Z95.1 Presence of aortocoronary bypass graft; Z87.891 Personal history of nicotine dependence; I95.9 Hypotension, unspecified; E87.5 Hyperkalemia; E04.1 Nontoxic single thyroid nodule; I11.0 Hypertensive heart disease with heart failure; D50.0 Iron deficiency anemia secondary to blood loss (chronic); K76.0 Fatty (change of) liver, not elsewhere classified; E66.01 Morbid (severe) obesity due to excess calories
CPT/HCPCS: 36415; 74177; 74183; 74300; 74329; 76376; 76705; 80053; 80061; 80074; 81001; 83605; 83690; 83735; 85025; 85027; 86850; 86900; 86901; 87040; 88304; 93005; 96361; 96365; 96375; 99285; A9270; A9577; C1713; C9113; J0330; J0690; J1100; J1170; J1650; J2250; J2370; J2405; J2543; J2704; J2710; J3010; J3475; J7040; J7120; Q9966; Q9967

== ENCOUNTER 2022-06-07 12:45 | Outpatient (CLI) | payer MEDICARE, SELFPAY ==
--- NOTE | 2022-06-07 15:04 | WPDPFTINT ---
PFT Procedure Performed PFT Procedure Performed Plethysmography (Lung Vol) Diffusing Cap (DLCO) Flow Vol Loop Spirometry w/o Bronchodil PFT Interpretation This is a pulmonary function test with spirometry, plethysmography and diffusing capacity. The test was performed and results interpreted in accordance with the 2019 and 2005 ATS/ERS Task Force guidelines respectively using the Global Lung Function Initiative-2012 reference equations. Patient demonstrated good effort and cooperation. Reproducibility criteria were met. The quality of the spirometry maneuver was Grade A. Findings: Spirometry: There is decreased maximal expiratory airflow at all lung volumes with concave expiratory flow tracing. The contour the inspiratory flow tracing is normal. The FVC is 2.53 L, 70% predicted. The FEV1 is 1.36 L, 49% predicted. The FEV1: FVC ratio is 54%. Plethysmography: The total lung capacity is 5.51 L, 92% predicted. The functional residual capacity is 3.81 L, 111% predicted. The residual volume is 2.97 L, 122% predicted. Diffusing capacity: The diffusing capacity unadjusted for hemoglobin and carboxyhemoglobin is 17.5, 75% predicted. The diffusing capacity adjusted for alveolar volume is 4.06, 100% predicted. Impression: There is a severe obstructive abnormality. The lung volumes are normal. The diffusing capacity is normal. There are no prior studies for comparison
== END 2022-06-07 12:46 | disposition home or self-care (01) ==
LOC: ANHPFT 12:46
PROVIDERS: PCP Family Medicine Adolescent Medicine; Visit Provider Nurse Practitioner Adult Health
DX: R06.09 Other forms of dyspnea (principal); R94.2 Abnormal results of pulmonary function studies
CPT/HCPCS: 94375; 94726; 94729

== ENCOUNTER 2022-08-01 08:38 | Outpatient (CLI) | payer MEDICARE, SELFPAY ==
--- NOTE | 2022-08-06 15:05 | WPDSLEEPSTUD ---
Sleep Study Date of Study: 08/01/22 Ordering Provider: Miguelangel Rodriguez APRN Interpreting Physician: Kim Nayak MD Sleep Study Type: Split Polysomnogram Height: 1.8 m Weight: 179.623 kg Body Mass Index: 55.2 Neck Circumference (inches): 20 [place]: 13 Reason for Sleep Study Hypersomnolence Sleep History Jessica Hathaway is a 67-year-old woman with atrial fibrillation diagnosed earlier this year. She is now on Xarelto. She had a CABG in 2020 for ischemic cardiomyopathy. She has COPD, she was on maintenance inhalers. She does not awaken from sleep feeling short of breath. She occasionally awakens at night with heartburn, belching or coughing. She occasionally snores, occasionally loudly enough that others complain. She does not have difficulty sleeping with a cold. She does not wake up gasping for breath at night. She does not have breathing problems at night observed by others. She does not sweat excessively at night. She does not notice her heart pounding or beating irregularly at night. She does not fall asleep during the day or fall asleep involuntarily. She does not have loss of muscle tone with strong emotion. She does not have daytime difficulties due to excessive sleepiness. 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 She does not feel paralyzed on waking or falling asleep. She does not have vivid dreamlike scenes on waking or falling asleep. She does not feel afraid to go to sleep. She does not have nightmares. She does not remember dreams. She occasionally has racing thoughts. She occasionally feels sad, depressed, and anxious. She does not have muscular tension. She frequently notices parts of her body jerking. She does not kick at night. She frequently has crawling aching feelings in her legs and leg pains during the night. She does not have morning jaw pain. Normal bedtime is 10:00 p.m.,falling asleep within 1/2 hour, waking 2 times or more during the night to go to the bathroom. She is able to return to sleep within 10 minutes to 20 minutes. She wakes the morning by 6:15 a.m.. On weekends she stays up later, wakes later, between 8:00 a.m. and 9:00 a.m.. She may take a nap in the afternoon or evening. A short nap lasting 10 or 15 minutes may be refreshing. She feels better in the morning compared to other times of day. Habits: No tobacco, caffeine, alcohol or recreational substances. [facility] Past Medical History Medical History (Updated 08/06/22 @ 17:02 by Kim Nayak MD) Afib ASHD (arteriosclerotic heart disease) CAD (coronary artery disease) Elevated fasting glucose Hypertension Ischemic cardiomyopathy Major depressive disorder, recurrent, moderate Polymyalgia rheumatica 08/2019 Surgical History Surgical History History of section x3 History of cholecystectomy 03/24 History of foot surgery History of total knee arthroplasty Hx of CABG July 2020 Family History Family History Mother Acute myocardial infarction Diabetes mellitus Heart disease Hypertension Daughter Gallbladder disease Hypertension Sibling Diabetes mellitus Other Depression Social History Social History Smoking packs per day: 1 Smoking cigarettes per day: 20.0 Years smoked: 50 Smoking pack-years: 50.00 Smoking status: Former smoker Tobacco type: cigarettes Second hand tobacco smoke exposure: No Smoking end date: 02/01/20 Alcohol intake: never Substance use: never Substance use type: does not use Living arrangements: with family Occupation/Education: occupation Gender identity (if verbalized by the patient): Female Sexual Orientation (if Verbalized by the Patient): Straight or Heterosexual Spiritual care concerns: No Agree to blood products: Yes Medications Home Medications Medication Instructions
[2022-08-06 16:36] VITALS: BMI 55.2
== END 2022-08-02 06:48 | disposition home or self-care (01) ==
LOC: ANHCSM 08:39
PROVIDERS: PCP Family Medicine Adolescent Medicine; Visit Provider Nurse Practitioner Family
DX: G47.33 Obstructive sleep apnea (adult) (pediatric) (principal); G25.81 Restless legs syndrome; R06.83 Snoring; G47.10 Hypersomnia, unspecified; I48.91 Unspecified atrial fibrillation
CPT/HCPCS: 95811

== ENCOUNTER 2022-08-02 06:46 | Outpatient (CLI) | payer MEDICARE, SELFPAY ==
--- NOTE | ~2022-08-02 | CT_ITS ---
CT Scan of the Chest without Contrast: Clinical Indication: Lung cancer screening, smoking history Technique: Contiguous sections were acquired throughout the chest without intravenous contrast. Dose reduction technique was used on this scan by utilizing automated exposure control and iterative recon struction technique. The dose-length product (DLP) was 650.52 mGy-cm. Findings: There is no evidence of any significant mediastinal, hilar or axillary lymphadenopathy. Status post p robable prior CABG. There are small bilateral pleural effusions with minimal bibasilar atelectasis. No pericardial effusi on. The lungs are clear. No pulmonary nodules or infiltrates are noted. Images through the upper abdomen reveal no abnormalities. Impression: Lung RADS 1: Negative. 12 month follow-up screening CT advised. Small bilateral pleural effusions. Reviewed, dictated and finalized at [facility]. Impression: Lung RADS 1: Negative. 12 month follow-up screening CT advised. Small bilateral pleural effusions.
== END 2022-08-02 06:47 | disposition home or self-care (01) ==
PROVIDERS: PCP Family Medicine Adolescent Medicine; Visit Provider Nurse Practitioner Family
DX: Z12.2 Encounter for screening for malignant neoplasm of respiratory organs (principal); Z87.891 Personal history of nicotine dependence; J90 Pleural effusion, not elsewhere classified
CPT/HCPCS: 71271

== ENCOUNTER 2022-09-18 00:48 | Day surgery (SDC) | payer MEDICARE, SELFPAY ==
--- NOTE | 2022-09-18 13:00 | ECG_ITS ---
Measurements Intervals [place] Rate: 66 P: 57 OK: 195 QRS: 56 QRSD: 128 T: 56 QT: 440 QTc: 461 Interpretive Statements SINUS RHYTHM VENTRICULAR PREMATURE COMPLEX INFERIOR INFARCT, AGE INDETERMINATE BORDERLINE ST ABNORMALITY- HIGH LATERAL LEADS ABNORMAL ECG COMPARED TO ECG 09/18/2022 13:18:35 SINUS RHYTHM NOW PRESENT MYOCARDIAL INFARCT FINDING NOW PRESENT Electronically Signed On 09-18-2022 15:36:32 CDT by Zach Perdomo D.O.
[2022-09-18 13:22] VITALS: BP 113/65; PULSE 83; RESP 14; TEMP 36.3; O2SAT 97; BMI 52.5
--- NOTE | 2022-09-18 13:30 | ECG_ITS ---
Measurements Intervals [place] Rate: 83 P: SD: 0 QRS: -2 QRSD: 125 T: 16 QT: 391 QTc: 461 Interpretive Statements ATRIAL FIBRILLATION VENTRICULAR PREMATURE COMPLEX INTRAVENTRICULAR CONDUCTION DELAY NONSPECIFIC ST & T-WAVE ABNORMALITY- INF/LAT LEADS ABNORMAL ECG COMPARED TO ECG 03/29/2021 10:21:53 A[address]ATION NOW PRESENT ST-T WAVE ABNORMALITY NOW PRESENT Electronically Signed On 09-18-2022 14:48:33 CDT by Zach Perdomo D.O.
--- NOTE | 2022-09-18 13:59 | WPDANESEPPF ---
Anes - Initial Pre Proc Eval Procedure: Operation Date: 09/18/22 14:30 Proposed Procedures p Electrical Cardioversion - Liam Macias MD Date/Time: 09/18/22 13:59 Surgeon: Liam Macias MD Pre Op Diagnosis: A-FIB Patient Data Age: 67 Gender: F Height: 1.8 m Weight: 171 kg Last Vital Signs Temp 97.3 F L 09/18/22 13:22 Pulse 83 09/18/22 13:22 Resp 14 09/18/22 13:22 BP 113/65 09/18/22 13:22 Pulse Ox 97 09/18/22 13:22 O2 Del Method Room Air 09/18/22 13:22 Allergies Allergy/AdvReac Type Severity Reaction Status Date / Time hydromorphone [From Dilaudid] AdvReac Severe Vomitting Verified 09/18/22 13:05 cephalexin AdvReac Intermediate Gastrointestinal Verified 09/18/22 13:05 Upset Home Medications Medication Instructions Recorded Confirmed Type spironolactone 50 mg tablet 50 mg PO DAILY 10/11/20 09/17/22 History aspirin 81 mg capsule 81 mg PO DAILY 04/01/21 09/17/22 History carvedilol 12.5 mg tablet 12.5 mg PO BID 04/01/21 09/17/22 History tramadol 50 mg tablet 100 mg PO QID PRN pain #40 tabs 04/10/21 09/17/22 Rx potassium chloride 20 mEq 20 meq PO DAILY 05/18/21 09/17/22 History tablet,extended release sacubitril 49 mg-valsartan 51 mg 0.5 tablet PO BID 05/18/21 09/17/22 History tablet (Entresto) quetiapine 25 mg tablet See Rx Instructions .Route 12/17/21 09/17/22 Rx .COMPLEX #30 tabs duloxetine 60 mg capsule,delayed See Rx Instructions .Route 01/28/22 09/17/22 Rx release .COMPLEX #30 ea furosemide 40 mg tablet 40 mg PO DAILY #30 tabs 03/25/22 09/17/22 Rx atorvastatin 20 mg tablet 20 mg PO DAILY #90 tabs 06/09/22 09/17/22 Rx albuterol sulfate 90 mcg/actuation 1 puff inhalation Q4H PRN 06/27/22 09/17/22 History aerosol inhaler shortness of health eszopiclone 2 mg tablet 2 mg PO ONCE #1 tablet 07/26/22 09/17/22 Rx rivaroxaban 20 mg tablet (Xarelto) 20 mg PO DAILY 07/26/22 09/17/22 History albuterol sulfate 2.5 mg/3 mL 2.5 mg (3 mL) inhalation Q6H PRN 08/19/22 09/17/22 Rx (0.083 %) solution for nebulization shortness of breath or wheezing #360 mL fluticasone 113 mcg-salmeterol 14 1 inh inhalation BID #1 ea 08/19/22 09/17/22 Rx mcg/actuation breath activated powdr (AirDuo RespiClick) ipratropium bromide 0.02 % 2.5 ml inhalation Q6H PRN 08/19/22 09/17/22 Rx solution for inhalation shortness of breath or wheezing #300 mL nebulizer accessories #1 ea 08/19/22 Rx Laboratory Tests 09/18/22 13:19 Sodium Pending Potassium Pending Chloride Pending Carbon Dioxide Pending Anion Gap Pending BUN Pending Creatinine Pending Estim Creat Clear Calc Pending Estimated GFR Pending Glucose Pending Calcium Pending Magnesium Pending Patient hx anesthesia problems: none Family hx anesthesia problems: none Results Review: All pre-operative results and documents have been reviewed as part of the pre-operative evaluation. [facility] Past Medical History Medical History (Updated 08/16/22 @ 12:32 by Miguelangel Rodriguez APRN) Afib ASHD (arteriosclerotic heart disease) CAD (coronary artery disease) Elevated fasting glucose Hypertension Ischemic cardiomyopathy Major depressive disorder, recurrent, moderate Polymyalgia rheumatica 08/2019 Surgical History Surgical History History of section x3 History of cholecystectomy 03/24 History of foot surgery History of total knee arthroplasty Hx of CABG July 2020 Family History Family History Mother Acute myocardial infarction Diabetes mellitus Heart disease Hypertension Daughter Gallbladder disease Hypertension Sibling Diabetes mellitus Other Depression Social History Social History Smoking packs per day: 1 Smoking cigarettes per day:
--- NOTE | 2022-09-18 14:27 | WPDMODSED ---
Moderate Sedation Note-Pt Data Patient Data Diagnosis: Atrial fibrillation Present Complaint: atrial fibrillation Procedure to be performed/Plan: elective cardioversion Sedation per Anesthesia Allergies Allergy/AdvReac Type Severity Reaction Status Date / Time hydromorphone [From Dilaudid] AdvReac Severe Vomitting Verified 09/18/22 13:05 cephalexin AdvReac Intermediate Gastrointestinal Verified 09/18/22 13:05 Upset Home Medications Medication Instructions Recorded Confirmed Type spironolactone 50 mg tablet 50 mg PO DAILY 10/11/20 09/17/22 History aspirin 81 mg capsule 81 mg PO DAILY 04/01/21 09/17/22 History carvedilol 12.5 mg tablet 12.5 mg PO BID 04/01/21 09/17/22 History tramadol 50 mg tablet 100 mg PO QID PRN pain #40 tabs 04/10/21 09/17/22 Rx potassium chloride 20 mEq 20 meq PO DAILY 05/18/21 09/17/22 History tablet,extended release sacubitril 49 mg-valsartan 51 mg 0.5 tablet PO BID 05/18/21 09/17/22 History tablet (Entresto) quetiapine 25 mg tablet See Rx Instructions .Route 12/17/21 09/17/22 Rx .COMPLEX #30 tabs duloxetine 60 mg capsule,delayed See Rx Instructions .Route 01/28/22 09/17/22 Rx release .COMPLEX #30 ea furosemide 40 mg tablet 40 mg PO DAILY #30 tabs 03/25/22 09/17/22 Rx atorvastatin 20 mg tablet 20 mg PO DAILY #90 tabs 06/09/22 09/17/22 Rx albuterol sulfate 90 mcg/actuation 1 puff inhalation Q4H PRN 06/27/22 09/17/22 History aerosol inhaler shortness of health eszopiclone 2 mg tablet 2 mg PO ONCE #1 tablet 07/26/22 09/17/22 Rx rivaroxaban 20 mg tablet (Xarelto) 20 mg PO DAILY 07/26/22 09/17/22 History albuterol sulfate 2.5 mg/3 mL 2.5 mg (3 mL) inhalation Q6H PRN 08/19/22 09/17/22 Rx (0.083 %) solution for nebulization shortness of breath or wheezing #360 mL fluticasone 113 mcg-salmeterol 14 1 inh inhalation BID #1 ea 08/19/22 09/17/22 Rx mcg/actuation breath activated powdr (AirDuo RespiClick) ipratropium bromide 0.02 % 2.5 ml inhalation Q6H PRN 08/19/22 09/17/22 Rx solution for inhalation shortness of breath or wheezing #300 mL nebulizer accessories #1 08/19/22 Rx Current Medications: Active Medications Sodium Chloride (Normal Saline Iv) 1,000 mls @ 30 mls/hr IV CONT .Q24H [place] Sedation/Anesthesia: No previous sedation/anesthesia problems (including family history). [facility] Past Medical History Medical History Afib ASHD (arteriosclerotic heart disease) CAD (coronary artery disease) Elevated fasting glucose Hypertension Ischemic cardiomyopathy Major depressive disorder, recurrent, moderate Polymyalgia rheumatica 08/2019 Surgical History Surgical History History of section x3 History of cholecystectomy 03/24 History of foot surgery History of total knee arthroplasty Hx of CABG July 2020 Family History Family History Mother Acute myocardial infarction Diabetes mellitus Heart disease Hypertension Daughter Gallbladder disease Hypertension Sibling Diabetes mellitus Other Depression Social History Social History Smoking packs per day: 1 Smoking cigarettes per day: 20.0 Years smoked: 50 Smoking pack-years: 50.00 Smoking status: Former smoker Tobacco type: cigarettes Second hand tobacco smoke exposure: No Smoking end date: 02/01/20 Alcohol intake: never Substance use: never Substance use type: does not use Living arrangements: with family Occupation/Education: occupation Gender identity (if verbalized by the patient): Female Sexual Orientation (if Verbalized by the Patient): Straight or Heterosexual Spiritual care concerns: No Agree to blood products: Yes Mod Sed Physical Exam Physical Exam Pre Procedural Exam: Normal: Appearance, Eyes, Ears, Nose
[2022-09-18 14:48] LABS: Anion Gap 5 mmol/L (8-16); Blood Urea Nitrogen 19 mg/dL (7-17); Calcium 9.1 mg/dL (8.4-10.2); Carbon Dioxide 30 mmol/L (22-30); Chloride 105 mmol/L (98-107); Estimated CRCL calculation 118 ml/min; Estimated Glomerular Filt Rate > 60; Glucose 105 mg/dL (65-110); Magnesium 1.9 mg/dL (1.6-2.3); Potassium 4.4 mmol/L (3.4-5.0); Sodium 140 mmol/L (137-145)
--- NOTE | 2022-09-18 15:14 | WPDCARDVER ---
Cardioversion Cardioversion Date of procedure: 09/18/22 Procedure: outpatient elective electrical cardioversion Pre-op diagnosis: atrial fibrillation Post-op diagnosis: Same Indications: atrial fibrillation Description of procedure: after discussing risks, benefits alternatives and procedure patient agreeable via verbal and written informed consent. Risks discussed included skin irritation burning, shocking into more problematic heart rhythm, adverse reaction to anesthesia, stroke. Due to her sleep apnea, anesthesia was provided in the GI lab by the Anesthesia Department. See separate report for details. Complications: None Blood loss: None After time-out was taken and after establishing continuous telemetry monitoring, pulse ox 98 and serial blood pressure assessments, sedation was initiated using propofol. After adequate sedation, 200 joules of biphasic synchronized energy was used to restore sinus rhythm from atrial fibrillation. Sedation: Per Anesthesia Findings: 1. successful anabaptist of sinus rhythm from atrial fibrillation using 200 joules of synchronized biphasic energy Conclusion: Successful outpatient elective electrical cardioversion using 200 of synchronized biphasic energy EKG in 1 week Follow-up with me on December 27. Continue current meds without change
[2022-09-18 15:15] VITALS: BP 104/64; PULSE 63; RESP 23; O2SAT 97
[2022-09-18 15:31] VITALS: BP 116/63; PULSE 65; RESP 18; O2SAT 98
[2022-09-18 15:45] VITALS: BP 107/93; PULSE 75; RESP 20; O2SAT 98
[2022-09-18 16:00] VITALS: BP 118/74; PULSE 76; RESP 22; O2SAT 98
== END 2022-09-18 16:15 | disposition home or self-care (01) ==
PROVIDERS: PCP Family Medicine Adolescent Medicine; Visit Provider Internal Medicine Cardiovascular Disease
PROC: 5A2204Z Restoration of Cardiac Rhythm, Single (ICD-10-PCS; principal; 2022-09-18 14:30)
DX: I48.19 Other persistent atrial fibrillation (principal); I25.10 Atherosclerotic heart disease of native coronary artery without angina pectoris; I25.5 Ischemic cardiomyopathy; I10 Essential (primary) hypertension; F33.1 Major depressive disorder, recurrent, moderate; M35.3 Polymyalgia rheumatica; Z79.82 Long term (current) use of aspirin; Z79.01 Long term (current) use of anticoagulants; Z79.51 Long term (current) use of inhaled steroids; Z95.1 Presence of aortocoronary bypass graft; Z87.891 Personal history of nicotine dependence; E66.01 Morbid (severe) obesity due to excess calories; Z68.43 Body mass index [BMI] 50.0-59.9, adult
CPT/HCPCS: 36415; 80048; 83735; 92960; J2001; J2704

== ENCOUNTER 2022-09-30 16:51 | Emergency (ER) | payer MEDICARE, SELFPAY ==
--- NOTE | ~2022-09-30 | XR_ITS ---
EXAM: XR ankle RT 2V, XR foot RT 2V DATE: 09/30/2022 19:37 (accession [id number]), 09/30/2022 19:38 (accession [id number]) HISTORY: Rt ankle pain; pain/swelling Rt 1st dist metatarsal,no inj . COMPARISON: None available. FINDINGS: Normal mineralization. Ill-defined areas of sclerosis in the posterior aspect of the calca neus. Moderate plantar and mild Achilles enthesopathy. No lytic or blastic lesion. Mild degenerative change at the tibiotalar joint. Moderate degenerative changes in multiple midfoot joints and the seco nd MTP joint. Severe degenerative change in the first MTP joint. Uncomplicated appearing screw in the distal aspect of the second metatarsal. No erosion or periosteal change. Soft tissues within normal limits. IMPRESSION: Ill-defined sclerosis in the posterior aspect of the calcaneus, likely related to degenerative change s although a calcaneal stress fracture could appear similarly, correlate with history of heel pain. Severe degenerative change at the first MTP joint. Reviewed, dictated and finalized at location K. IMPRESSION: Ill-defined sclerosis in the posterior aspect of the calcaneus, likely related to degenerative changes although a calcaneal stress fracture could appear simil spencer, correlate with history of heel pain. Severe degenerative change at the first MTP joint.
--- NOTE | ~2022-09-30 | CT_ITS ---
CT OF right foot EXAMINATION: CT foot RT wo con DATE: 09/30/2022 21:23 INDICATION: Possible calcaneal stress fracture. TECHNIQUE: Computed tomography (CT) of the left foot was performed without intravenous contrast. Auto mated exposure control and iterative reconstruction technique were employed. The dose-length product was 658.60 mGy-cm. COMPARISON: X-ray left foot and ankle, same date FINDINGS: Uncomplicated appearing fixation screw in the distal aspect of the second metatarsal. Unifo rm sclerosis along the posterior cortical margin of the calcaneus, no stress fracture. No acute fract ure or dislocation in the foot or ankle. Mild Achilles and moderate plantar enthesopathy. Mild degene rative changes in the tibiotalar joint. Moderate degenerative changes in multiple midfoot joints and the second MTP joint. Severe degenerative change at the first MTP joint. Subcutaneous edema at the an kle and dorsum of the foot. IMPRESSION: No acute osseous finding in the ankle or foot. Specifically, no evidence of calcaneal stress fracture . Ankle and foot edema, correlate for findings of infection/cellulitis. Reviewed, dictated and finalized at location K. IMPRESSION: No acute osseous finding in the ankle or foot. Specifically, no evidence of latanya caneal stress fracture. Ankle and foot edema, correlate for findings of infecti on/cellulitis.
[2022-09-30 17:04] VITALS: BP 108/75; PULSE 76; RESP 18; TEMP 36.1; O2SAT 98
--- NOTE | 2022-09-30 19:22 | ED.GENADULT ---
HPI - General Adult General Chief complaint: Extremity Problem,Nontraumatic <Myron Garcia PA-C - Last Filed: 10/01/22 01:56> Stated complaint: R FOOT REDNESS/SWELLING. NO KNOWN INJURY <Myron Garcia PA-C - Last Filed: 10/01/22 01:56> Time Seen by Provider: 09/30/22 19:13 <SALLY Capellan Last Filed: 10/01/22 01:56> Source: patient <SALLY Capellan Last Filed: 10/01/22 01:56> Mode of arrival: wheelchair <SALLY Capellan Last Filed: 10/01/22 01:56> Limitations: no limitations <Myron Garcia PA-C - Last Filed: 10/01/22 01:56> History of Present Illness HPI narrative: This is a 67-year-old female who presents to the ED with chief complaint of right foot pain beginning 3 days ago. Patient states that pain has been all throughout the foot and severe for the past 3 days, it is not worsening since Friday. Reports she has a history of gout in the other foot but she is unable to take allopurinol for prevention. She states today she had trouble weightbearing so she came to the ER. She denies any recent lesions or infections to the foot. She does not have any history of diabetes or immunocompromising conditions. Denies fevers, chills nausea or vomiting. States she is feeling fine otherwise. <SALLY Capellan Last Filed: 10/01/22 01:56> Related Data Home medications: Home Medications Medication Instructions Recorded Confirmed spironolactone 50 mg tablet 50 mg PO DAILY 10/11/20 09/17/22 aspirin 81 mg capsule 81 mg PO DAILY 04/01/21 09/17/22 carvedilol 12.5 mg tablet 12.5 mg PO BID 04/01/21 09/17/22 potassium chloride 20 mEq 20 meq PO DAILY 05/18/21 09/17/22 tablet,extended release sacubitril 49 mg-valsartan 51 mg 0.5 tablet PO BID 05/18/21 09/17/22 tablet (Entresto) albuterol sulfate 90 mcg/actuation 1 puff inhalation Q4H PRN 06/27/22 09/17/22 aerosol inhaler shortness of health rivaroxaban 20 mg tablet (Xarelto) 20 mg PO DAILY 07/26/22 09/17/22 <SALLY Capellan Last Filed: 10/01/22 01:56> Allergies/adverse reactions: Allergies Allergy/AdvReac Type Severity Reaction Status Date / Time hydromorphone [From Dilaudid] AdvReac Severe Vomitting Verified 09/30/22 20:08 cephalexin AdvReac Intermediate Gastrointestinal Verified 09/30/22 20:08 Upset <SALLY Capellan Last Filed: 10/01/22 01:56> Review of Systems Review of Systems: All systems as dictated in HPI <SALLY Capellan Last Filed: 10/01/22 01:56> [facility] Past Medical History Medical History: Medical History Afib ASHD (arteriosclerotic heart disease) CAD (coronary artery disease) Elevated fasting glucose Hypertension Ischemic cardiomyopathy Major depressive disorder, recurrent, moderate Polymyalgia rheumatica 08/2019 <Myron Garcia PA-C - Last Filed: 10/01/22 01:56> Surgical History Surgical History: Surgical History History of section x3 History of cholecystectomy 03/24 History of foot surgery History of total knee arthroplasty Hx of CABG July 2020 <Myron Garcia PA-C - Last Filed: 10/01/22 01:56> Family History Family History: Family History Mother Acute myocardial infarction Diabetes mellitus Heart disease Hypertension Daughter Gallbladder disease Hypertension Sibling Diabetes mellitus Other Depression <SALLY Capellan Last Filed: 10/01/22 01:56> Social History Social History: Social History Smoking packs per day: 1 Smoking cigarettes per day: 20.0 Years smoked: 50 Smoking pack-years: 50.00 Smoking status: Former smoker Tobacco type: cigarettes Second hand tobacco smoke exposure: No Smoking end date: 02/01/20 Alcohol intake: never Substance use:
[2022-09-30 19:48] LABS: Basophils Percent Auto 0.3 % (0.2-1.2); Eosinophils Absolute Auto 0.1 K/mm3 (0-0.3); Eosinophils Percent Auto 0.9 % (0-4.4); Hematocrit 41.5 % (37.0-47.0); Hemoglobin 12.6 g/dL (12.0-15.0); Immature Granulocyte Absolute 0.03 K/mm3 (0.00-0.031); Immature Granulocyte Percent A 0.4 % (0-0.5); Lymphocytes Absolute Auto 0.92 K/mm3 (0.9-3.2); Lymphocytes Percent Auto 12.2 % (18.3-44.2); Mean Corpuscular HGB Conc 30.4 g/dl (32-36); Mean Corpuscular Hemoglobin 25.7 pg (26-34); Mean Corpuscular Volume 84.7 fl (80-100); Mean Platelet Volume 9.6 fl (7.4-10.4); Monocytes Absolute Auto 0.4 K/mm3 (0.1-0.6); Monocytes Percent Auto 5.4 % (2.6-8.5); Neutrophils Absolute Auto 6.1 K/mm3 (1.3-6.7); Neutrophils Percent Auto 80.8 % (45.5-73.1); Platelet Count Result 160 k/mm3 (150-375); Red Cell Distribution Width 14.2 % (11.5-14.5); White Blood Count 7.6 K/mm3 (4.5-10.0)
[2022-09-30 20:01] LABS: Alanine Aminotransferase 18 U/L (6-35); Albumin Level 4.1 g/dL (3.5-5.1); Alkaline Phosphatase 88 U/L (38-126); Anion Gap 5 mmol/L (8-16); Aspartate Amino Transferase 13 U/L (14-36); Bilirubin,Total 0.8 mg/dL (0.2-1.3); Blood Urea Nitrogen 16 mg/dL (7-17); CRP 6.6 mg/dL (<1.0); Calcium 9.1 mg/dL (8.4-10.2); Carbon Dioxide 28 mmol/L (22-30); Chloride 104 mmol/L (98-107); Estimated CRCL calculation 118 ml/min; Estimated Glomerular Filt Rate > 60; Glucose 131 mg/dL (65-110); Potassium 4.1 mmol/L (3.4-5.0); Sodium 137 mmol/L (137-145)
[2022-09-30] MEDS: KETOROLAC 30 MG/ML VIAL (*BKC) IV PUSH (20:07)
[2022-09-30 20:21] LABS: Erythrocyte Sedimentation Rate 23 mm/hr (0-20)
[2022-09-30] MEDS: predniSONE 40 MG, predniSONE 10 MG 50 MG PO (20:50)
[2022-09-30] MEDS: HYDROcodone/acetaminophen (*CRX) 7.5-325 MG TABLET 1 TAB PO (20:51)
--- NOTE | 2022-09-30 21:14 | PC.NURSE ---
Patient off unit to CT.
[2022-09-30] MEDS: COLCHICINE 0.6 MG TABLET PO (22:19)
== END 2022-09-30 22:31 | disposition home or self-care (01) ==
PROVIDERS: Emergency Provider Physician Assistant; PCP Family Medicine Adolescent Medicine
DX: M79.671 Pain in right foot (principal); I48.91 Unspecified atrial fibrillation; I25.10 Atherosclerotic heart disease of native coronary artery without angina pectoris; I10 Essential (primary) hypertension; I25.5 Ischemic cardiomyopathy; M10.9 Gout, unspecified; M35.3 Polymyalgia rheumatica; Z96.659 Presence of unspecified artificial knee joint; Z95.1 Presence of aortocoronary bypass graft; Z87.891 Personal history of nicotine dependence; Z90.49 Acquired absence of other specified parts of digestive tract; Z79.01 Long term (current) use of anticoagulants; R93.6 Abnormal findings on diagnostic imaging of limbs
CPT/HCPCS: 36415; 73600; 73620; 73700; 80053; 85025; 85652; 86140; 96374; 99284; A9270; J1885; J7512

== ENCOUNTER 2022-12-04 16:45 | Emergency (ER) | payer MEDICARE, SELFPAY ==
[2022-12-04 17:01] VITALS: BP 130/48; PULSE 78; RESP 18; TEMP 36.4; O2SAT 98
--- NOTE | 2022-12-04 17:02 | ED.LOWEXIN ---
HPI - Extremity Injury (Lower) General Chief Complaint: Extremity Problem,Nontraumatic Stated Complaint: Right foot, left big toe pain Source: patient Mode of arrival: ambulatory Limitations: no limitations History of Present Illness HPI Narrative: 67-year-old female with history of AFib, CAD, hypertension, cardiomyopathy presenting for complaint of right foot pain and swelling over the past 3 days. Patient states I have gout. Pain worse when walking, and cannot tolerate bed sheets on the foot. She is unable to take allopurinol for prevention, reporting allergy. Using wheeled walker to assist with weight bearing. Endorses similar symptoms in August and Nov, treated for gout each time. She denies any recent lesions or infections to the foot.?Denies injury, bruising, numbness, tingling or weakness to the foot. Has not taken anything for pain. States she was unable to reach her PCP. Related Data Home Medications Medication Instructions Recorded Confirmed spironolactone 50 mg tablet 50 mg PO DAILY 10/11/20 11/22/22 aspirin 81 mg capsule 81 mg PO DAILY 04/01/21 11/22/22 carvedilol 12.5 mg tablet 12.5 mg PO BID 04/01/21 11/22/22 potassium chloride 20 mEq 20 meq PO DAILY 05/18/21 11/22/22 tablet,extended release sacubitril 49 mg-valsartan 51 mg 0.5 tablet PO BID 05/18/21 11/22/22 tablet (Entresto) rivaroxaban 20 mg tablet (Xarelto) 20 mg PO DAILY 07/26/22 11/22/22 albuterol sulfate 90 mcg/actuation inhalation 12/04/22 aerosol inhaler (Ventolin HFA) fluoxetine 20 mg capsule mg 12/04/22 tiotropium bromide 2.5 inhalation 12/04/22 mcg/actuation mist for inhalation (Spiriva Respimat) Allergies Allergy/AdvReac Type Severity Reaction Status Date / Time allopurinol AdvReac Severe Itching Verified 12/04/22 16:49 hydromorphone [From Dilaudid] AdvReac Severe Vomitting Verified 12/04/22 16:49 cephalexin AdvReac Intermediate Gastrointestinal Verified 12/04/22 16:49 Upset Review of Systems Review of Systems: CONSTITUTIONAL: Denies body aches, fever, chills EYES: Denies visual changes ENT: Denies rhinorrhea, congestion CARDIOVASCULAR: Denies chest pain, palpitations, or edema. RESPIRATORY: Denies cough or dyspnea. GASTROINTESTINAL: Denies abdominal pain, nausea, vomiting, or diarrhea. SKIN: Denies rash, itching, or wounds. MUSCULOSKELETAL: reports right foot pain and swelling Denies back pain, or myalgia. NEUROLOGIC: Denies headache, numbness, tingling, or weakness. All systems reviewed & are unremarkable except as noted in HPI and below PMFSH Past Medical History Medical History Afib ASHD (arteriosclerotic heart disease) CAD (coronary artery disease) Elevated fasting glucose Hypertension Ischemic cardiomyopathy Major depressive disorder, recurrent, moderate Polymyalgia rheumatica 08/2019 Surgical History Surgical History History of section x3 History of cholecystectomy 03/24 History of foot surgery History of total knee arthroplasty Hx of CABG July 2020 Family History Family History Mother Acute myocardial infarction Diabetes mellitus Heart disease Hypertension Daughter Gallbladder disease Hypertension Sibling Diabetes mellitus Other Depression Social History Social History Smoking packs per day: 1 Smoking cigarettes per day: 20.0 Years smoked: 50 Smoking pack-years: 50.00 Smoking status: Former smoker Tobacco type: cigarettes Second hand tobacco smoke exposure: No Smoking end date: 02/01/20 Alcohol intake: never Substance use: never Substance use type: does not use Living arrangements: with family Occupation/Education: occupation Gender identity (if verbalized by the patient): Female Sexual Orientation (if Verbalized by
== END 2022-12-04 17:25 | disposition home or self-care (01) ==
PROVIDERS: Emergency Provider Nurse Practitioner Family
DX: M79.671 Pain in right foot (principal); I48.91 Unspecified atrial fibrillation; I25.10 Atherosclerotic heart disease of native coronary artery without angina pectoris; I10 Essential (primary) hypertension; Z87.891 Personal history of nicotine dependence
CPT/HCPCS: 99213; G0463

== ENCOUNTER 2023-01-31 14:39 | Outpatient (CLI) | payer MEDICARE, SELFPAY ==
--- NOTE | ~2023-01-31 | US_ITS ---
EXAMINATION: US pelvic complete w TV DATE: 01/31/2023 15:27 INDICATION: Thickened endometrium. Comparison: TECHNIQUE: Multiple transabdominal and endovaginal sonographic images of the pelvis performed. FINDINGS: The uterus measures 8.2 x 3.9 x 4.5 cm. The endometrial complex measures 9 mm. The ovaries are not identified, likely atrophic. There is no free fluid in the pelvis. There are no abnormal masses seen on either side. IMPRESSION: 1. Thickened endomtrial complex. The differential diagnosis includes endometrial hyperplasia, polyp a nd carcinoma. Biopsy is recommended. 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 Thickened endomtrial complex. The differential diagnosis includes endometria l hyperplasia, polyp and carcinoma. Biopsy is recommended.
== END 2023-01-31 14:40 | disposition home or self-care (01) ==
PROVIDERS: PCP Physician Assistant; Visit Provider Physician Assistant
DX: R93.89 Abnormal findings on diagnostic imaging of other specified body structures (principal)
CPT/HCPCS: 76830; 76856

== ENCOUNTER 2023-02-04 13:23 | Outpatient (CLI) | payer MEDICARE, SELFPAY ==
--- NOTE | ~2023-02-04 | MR_ITS ---
MRI of the lumbar spine Clinical History: Lytic lesion Technique: Axial T2-weighted images, and sagittal T1-weighted, T2-weighted, and and T2 fat-sat images were acquired. Following intravenous administration of 20 cc MultiHance gadolinium, T1-weighted fat- sat imaging was performed in the axial and sagittal planes. Findings: No acute fracture and 5. There is minimal grade 1 retrolisthesis of L2 over L3. Suggestion of intraosseous hemangiomas in the L2 and L3 vertebral bodies, which correlate with the lucent areas seen in these locations on prior CT dated 03/28/2021. No overtly suspicious bone marrow signal abnorma lity or bony lesion identified. At L1-L2, there is moderate degenerative disc narrowing. There is mild disc bulge and moderate facet arthropathy. There is minimal central canal stenosis. Neural foramina are preserved. At L2-L3, there is severe degenerative disc narrowing. There is diffuse minimal disc bulge with super imposed right paracentral disc extrusion/herniation, extending inferiorly, resulting in right lateral recess stenosis. There is moderate to severe central canal stenosis/thecal sac compression, with mod erate to severe right neural foraminal narrowing, and moderate left neural foraminal narrowing. At L3-L4, there is degenerative disc narrowing. Disc bulge and advanced facet arthropathy result in s evere spinal canal stenosis/thecal sac compression. There is mild to moderate bilateral neural forami nal narrowing. At L4-L5, there is severe degenerative disc narrowing. Disc bulge and severe facet arthropathy result in severe spinal canal stenosis/thecal sac compression. There is severe left neural foraminal narrow ing, and moderate to severe right neural foraminal narrowing. At L5-S1, there is severe degenerative disc narrowing. Disc bulge and moderate facet arthropathy are present. No mini central canal stenosis. There is severe left neural foraminal narrowing, and mild r ight neural foraminal narrowing. Paravertebral soft tissues are unremarkable. No suspicious or abnormal postcontrast enhancement ident ified. Impression: Intraosseous hemangiomas in the L2 and L3 vertebral bodies, which correlate with lesion seen on prior CT scan. Severe degenerative spondylosis throughout the lumbar spine, as detailed above. Reviewed, dictated and finalized at location M. [employer]ACH[employer] ME[employer]IC Impression: Intraosseous hemangiomas in the L2 and L3 vertebral bodies, which correlate wit h lesion seen on prior CT scan. Severe degenerative spondylosis throughout the lumbar spine, as detailed above.
== END 2023-02-04 13:24 | disposition home or self-care (01) ==
PROVIDERS: PCP Physician Assistant; Visit Provider Physician Assistant
DX: D18.09 Hemangioma of other sites (principal); M43.06 Spondylolysis, lumbar region; R93.7 Abnormal findings on diagnostic imaging of other parts of musculoskeletal system
CPT/HCPCS: 72158; A9577

== ENCOUNTER 2023-11-07 12:16 | Outpatient (CLI) | payer MEDICARE, SELFPAY ==
--- NOTE | ~2023-11-07 | CT_ITS ---
CT Scan of the Chest without Contrast: Clinical Indication: Lung cancer screening, nicotine dependence Technique: Contiguous sections were acquired throughout the chest without intravenous contrast. Dose reduction technique was used on this scan by utilizing automated exposure control and iterative recon struction technique. The dose-length product (DLP) was 639.00 mGy-cm. COMPARISON: 08/02/2022 Findings: There is no evidence of any significant mediastinal, hilar or axillary lymphadenopathy. The mediastin al soft tissues appear normal. No pericardial effusion. Small bilateral pleural effusions are present. Calcified left basilar granuloma present. No other pulmonary nodule seen. Images through the upper abdomen reveal no abnormalities. Impression: Lung RADS 2: Benign appearance. 12 month follow-up screening CT advised. Small bilateral pleural effusions. Reviewed, dictated and finalized at [facility]. Impression: Lung RADS 2: Benign appearance. 12 month follow-up screening CT advised. Small bilateral pleural effusions.
== END 2023-11-07 12:17 | disposition home or self-care (01) ==
PROVIDERS: PCP Physician Assistant; Visit Provider Physician Assistant
DX: Z12.2 Encounter for screening for malignant neoplasm of respiratory organs (principal); J90 Pleural effusion, not elsewhere classified; Z87.891 Personal history of nicotine dependence
CPT/HCPCS: 71271